=== PATIENT | male | born 1940 | race Caucasian/White ===

== ENCOUNTER 2017-05-27 10:15 | Outpatient (RCR) | payer MEDICARE, SELFPAY ==
[2017-04-29 10:05] LABS: International Normalized Ratio 2.5; Prothrombin Time (Protime)PT. 25.7 SECONDS (11.7-14.9)
[2017-05-06 11:08] LABS: International Normalized Ratio 2.7; Prothrombin Time (Protime)PT. 27.9 SECONDS (11.7-14.9)
[2017-05-20 11:39] LABS: International Normalized Ratio 3.2; Prothrombin Time (Protime)PT. 31.8 SECONDS (11.7-14.9)
[2017-05-27 10:45] LABS: International Normalized Ratio 3.2; Prothrombin Time (Protime)PT. 31.8 SECONDS (11.7-14.9)
== END 2017-05-27 10:30 | disposition home or self-care (01) ==
LOC: LAB 10:15
DX: D68.59 Other primary thrombophilia (principal)
CPT/HCPCS: 36415; 85610

== ENCOUNTER 2017-07-15 08:41 | Outpatient (RCR) | payer MEDICARE, SELFPAY ==
[2017-06-03 10:18] LABS: Prothrombin Time (Protime)PT. 32.6 SECONDS (11.7-14.9)
[2017-06-03 10:27] LABS: International Normalized Ratio 3.3
[2017-06-10 09:59] LABS: International Normalized Ratio 2.2; Prothrombin Time (Protime)PT. 23.8 SECONDS (11.7-14.9)
[2017-06-17 11:26] LABS: International Normalized Ratio 2.6; Prothrombin Time (Protime)PT. 26.9 SECONDS (11.7-14.9)
[2017-06-24 09:21] LABS: International Normalized Ratio 2.8; Prothrombin Time (Protime)PT. 28.7 SECONDS (11.7-14.9)
[2017-07-08 09:29] LABS: Prothrombin Time (Protime)PT. 31.4 SECONDS (11.7-14.9)
[2017-07-15 09:06] LABS: International Normalized Ratio 2.2; Prothrombin Time (Protime)PT. 24.8 SECONDS (11.7-14.9)
== END 2017-07-15 09:00 | disposition home or self-care (01) ==
LOC: LAB 08:41
DX: D68.59 Other primary thrombophilia (principal)
CPT/HCPCS: 36415; 85610

== ENCOUNTER 2017-08-19 08:28 | Outpatient (RCR) | payer MEDICARE, SELFPAY ==
[2017-08-19 08:58] LABS: Prothrombin Time (Protime)PT. 39.4 SECONDS (11.7-14.9)
== END 2017-08-19 09:00 | disposition home or self-care (01) ==
LOC: LAB 08:28
PROVIDERS: Family Provider Internal Medicine; PCP Internal Medicine; Visit Provider Internal Medicine
DX: D68.59 Other primary thrombophilia (principal)
CPT/HCPCS: 36415; 85610

== ENCOUNTER 2017-09-03 10:09 | Outpatient (RCR) | payer MEDICARE, SELFPAY ==
[2017-08-26 08:19] LABS: Prothrombin Time (Protime)PT. 31.6 SECONDS (11.7-14.9)
[2017-09-03 10:44] LABS: Prothrombin Time (Protime)PT. 31.6 SECONDS (11.7-14.9)
== END 2017-09-03 11:00 | disposition home or self-care (01) ==
LOC: LAB 10:09
PROVIDERS: Family Provider Internal Medicine; PCP Internal Medicine; Visit Provider Internal Medicine
DX: D68.59 Other primary thrombophilia (principal)
CPT/HCPCS: 36415; 85610

== ENCOUNTER → 2017-09-16 08:23 | Outpatient (CLI) | payer MEDICARE, SELFPAY ==
[2017-09-16 08:54] LABS: International Normalized Ratio 2.8
[2017-09-16 09:00] LABS: Prothrombin Time (Protime)PT. 29.5 SECONDS (11.7-14.9)
== END ==
DX: D68.59 Other primary thrombophilia (principal); Z79.01 Long term (current) use of anticoagulants
CPT/HCPCS: 36415; 85610

== ENCOUNTER 2017-10-07 08:34 | Outpatient (RCR) | payer MEDICARE, SELFPAY ==
[2017-10-07 08:54] LABS: International Normalized Ratio 2.9; Prothrombin Time (Protime)PT. 30.8 SECONDS (11.7-14.9)
== END 2017-10-07 09:00 | disposition home or self-care (01) ==
LOC: LAB 08:34
PROVIDERS: Visit Provider Internal Medicine
DX: D68.59 Other primary thrombophilia (principal)
CPT/HCPCS: 36415; 85610

== ENCOUNTER 2017-11-03 10:06 | Outpatient (RCR) | payer MEDICARE, SELFPAY ==
[2017-11-03 10:45] LABS: International Normalized Ratio 2.6; Prothrombin Time (Protime)PT. 27.8 SECONDS (11.7-14.9)
== END 2017-11-03 11:00 | disposition home or self-care (01) ==
LOC: LAB 10:06
PROVIDERS: Family Provider Internal Medicine; PCP Internal Medicine; Visit Provider Internal Medicine
DX: D68.59 Other primary thrombophilia (principal)
CPT/HCPCS: 36415; 85610

== ENCOUNTER 2017-12-08 08:21 | Outpatient (RCR) | payer MEDICARE, SELFPAY ==
[2017-12-08 09:06] LABS: International Normalized Ratio 2.5; Prothrombin Time (Protime)PT. 26.9 SECONDS (11.7-14.9)
== END 2017-12-08 10:00 | disposition home or self-care (01) ==
LOC: LAB 08:21
PROVIDERS: Family Provider Internal Medicine; PCP Internal Medicine; Visit Provider Internal Medicine
DX: D68.59 Other primary thrombophilia (principal)
CPT/HCPCS: 36415; 85610

== ENCOUNTER 2018-01-11 09:08 | Outpatient (RCR) | payer MEDICARE, SELFPAY ==
[2018-01-11 09:55] LABS: International Normalized Ratio 2.9; Prothrombin Time (Protime)PT. 30.4 SECONDS (11.7-14.9)
== END 2018-01-11 10:00 | disposition home or self-care (01) ==
LOC: LAB 09:08
PROVIDERS: Family Provider Internal Medicine; PCP Internal Medicine; Visit Provider Internal Medicine
DX: D68.59 Other primary thrombophilia (principal)
CPT/HCPCS: 36415; 85610

== ENCOUNTER 2018-02-22 08:43 | Outpatient (RCR) | payer MEDICARE, SELFPAY ==
[2018-02-02 09:21] LABS: International Normalized Ratio 3.2; Prothrombin Time (Protime)PT. 33.3 SECONDS (11.7-14.9)
[2018-02-11 09:16] LABS: Prothrombin Time (Protime)PT. 37.1 SECONDS (11.7-14.9)
[2018-02-11 09:28] LABS: International Normalized Ratio 3.7
[2018-02-12 09:41] LABS: Hematocrit 41.5 % (40-54); Hemoglobin 13.9 g/dl (13.0-16.5)
[2018-02-15 10:03] LABS: Prothrombin Time (Protime)PT. 22.4 SECONDS (11.7-14.9)
[2018-02-22 09:42] LABS: International Normalized Ratio 2.2; Prothrombin Time (Protime)PT. 24.2 SECONDS (11.7-14.9)
== END 2018-02-22 10:00 | disposition home or self-care (01) ==
LOC: LAB 08:43
PROVIDERS: Family Provider Internal Medicine; PCP Internal Medicine; Referring Provider Internal Medicine; Visit Provider Internal Medicine
DX: D68.59 Other primary thrombophilia (principal)
CPT/HCPCS: 36415; 85014; 85018; 85610

== ENCOUNTER 2018-03-15 11:06 | Outpatient (RCR) | payer MEDICARE, SELFPAY ==
[2018-03-01 08:17] LABS: International Normalized Ratio 2.1; Prothrombin Time (Protime)PT. 23.5 SECONDS (11.7-14.9)
[2018-03-15 11:38] LABS: International Normalized Ratio 1.9
== END 2018-03-26 09:06 | disposition home or self-care (01) ==
LOC: LAB 11:06
PROVIDERS: Family Provider Internal Medicine; PCP Internal Medicine; Referring Provider Internal Medicine; Visit Provider Internal Medicine
DX: D68.59 Other primary thrombophilia (principal)
CPT/HCPCS: 36415; 85610

== ENCOUNTER 2018-04-18 08:57 | Emergency (ER) | payer MEDICARE, SELFPAY ==
[2018-04-18 09:00] VITALS: BP 114/75; PULSE 81; RESP 16; TEMP 36.4; O2SAT 94; BMI 31.6
--- NOTE | 2018-04-18 09:30 | ED.VISSUMM ---
- ER Visit Summary Date of Service: 04/18/18 Chief Complaint: [] Bleeding right ear canal after inadvertent trauma History of Present Illness: The patient is a 77 M [] currently on Lovenox, Coumadin therapy resuming, after being stopped for procedure, he indicated he basically put his finger in his ear the other day and he has some intermittent bleeding from the right ear canal since no ear trauma otherwise no difficulty hearing no bleeding from elsewhere no nausea or vomiting no other complaints Physical Examination: [] Vital signs are within normal range 114/75 General, no distress resting comfortably HEENT is generally unremarkable mother right ear canal is slightly excoriated with abrasions circumferentially over the first 1 cm or so of the canal the TMs unremarkable is no current bleeding no masses no infection the HEENT exam is otherwise unremarkable, The rest of the exam is generally unremarkable as well no other complaints The neck is supple no adenopathy Neurologic, awake alert answering questions appropriately moving all 4 extremities Test Results: [] Emergency Department Course and Treatment: [] We did take a long 4 x 4 soak it with antibiotic ointment and then gently applied to the ear canal first centimeter or 2 patient instructed move that tomorrow otherwise avoid trauma to the ear and follow-up with ENT he is comp with this plan Treatment Plan: [] Disposition: [] Home stable Impression: [] Abrasions from focal trauma right ear canal This note was generated with [employer] dictation software. It may contain incorrect words, spelling, and punctuation that were not noted in review of the chart prior to signing ED Disposition - Plan for ED Patient: Chief Complaint: Ear Problem Referrals: Radha Steele MD [Primary Care Provider] -
--- NOTE | 2018-04-18 09:32 | ED.DEP ---
ED Disposition - Plan for ED Patient: Chief Complaint: Ear Problem Instructions: ED Otitis Media Acute Adult Referrals: Radha Steele MD [Primary Care Provider] - Fermin Santana MD [STAFF PHYSICIAN] -
[2018-04-18 09:53] VITALS: BP 125/82; PULSE 62; RESP 16; O2SAT 100
== END 2018-04-18 09:59 | disposition home or self-care (01) ==
LOC: ED 09:32
PROVIDERS: Emergency Provider Emergency Medicine; Family Provider Internal Medicine; PCP Internal Medicine
DX: S00.411A Abrasion of right ear, initial encounter (principal); X58.XXXA Exposure to other specified factors, initial encounter; Y93.9 Activity, unspecified; Y92.89 Other specified places as the place of occurrence of the external cause; Y99.9 Unspecified external cause status
CPT/HCPCS: 99282

== ENCOUNTER 2018-04-21 09:16 | Outpatient (RCR) | payer MEDICARE, SELFPAY ==
[2018-03-29 09:41] LABS: International Normalized Ratio 2.3; Prothrombin Time (Protime)PT. 25.8 SECONDS (11.7-14.9)
[2018-04-14 10:40] LABS: International Normalized Ratio 1.7; Prothrombin Time (Protime)PT. 20.2 SECONDS (11.7-14.9)
[2018-04-21 09:39] LABS: International Normalized Ratio 1.7; Prothrombin Time (Protime)PT. 20.4 SECONDS (11.7-14.9)
--- OUTSIDE RECORDS SUMMARY | 2018-05-22 11:54 | XMS RPT_ITS ---
:1940 Author Organization OHIP Support Name Relationship Address Phone BRYSON AUGUSTINELYN Unavailable [address] + [place] [address] R Unavailable Unavailable Unavailable YENI AUGUSTINEQUELYN Unavailable [address] + [facility] [place] [address] PROSPER AUGUSTINE Unavailable Unavailable Unavailable BELEN GALE Unavailable Unavailable Unavailable FAWN, TWAN Unavailable [address] + [place] [address] R Unavailable Unavailable Unavailable BRYSON AUGUSTINELYN Unavailable [address] + [place] [address] R Unavailable Unavailable Unavailable FAWN, TWAN Unavailable [address] + [place] [address] R Unavailable Unavailable Unavailable FAWN, TWAN Unavailable [address] + [place] [address] R Unavailable Unavailable Unavailable FAWN, TWAN Unavailable [address] + [place] [address] R Unavailable Unavailable Unavailable YENI AUGUSTINEQUELYN Unavailable [address] + [place] [address] R Unavailable Unavailable Unavailable FAWN, TWAN Unavailable [address] + [place] [address] R Unavailable Unavailable Unavailable FAWN, TWAN Unavailable [address] + [place] [address] PROSPER AUGUSTINE Unavailable Unavailable Unavailable BELEN GALE Unavailable Unavailable Unavailable FAWN, TWAN Unavailable [address] + [place] [address] R Unavailable Unavailable Unavailable FAWN, TWAN Unavailable [address] + [place] [address] R Unavailable Unavailable Unavailable FAWN TWAN Unavailable [address] + [place] [address] R Unavailable Unavailable Unavailable FAWN, TWAN Unavailable [address] + [place] [address] R Unavailable Unavailable Unavailable FAWN TWAN Unavailable [address] + [place] [address] R Unavailable Unavailable Unavailable FAWN, TWAN Unavailable [address] + [place] [address] R Unavailable Unavailable Unavailable FAWN TWAN Unavailable [address] + [place] [address] R Unavailable Unavailable Unavailable FAWN, TWAN Unavailable [address] + [place] [address] R Unavailable Unavailable Unavailable FAWN TWAN Unavailable [address] + [place] [address] R Unavailable Unavailable Unavailable FAWN TWAN Unavailable [address] + [place] [address] R Unavailable Unavailable Unavailable FAWN, TWAN Unavailable [address] + [place] [address] FAWN, PROSPER Unavailable Unavailable Unavailable BALJINDER BELEN Unavailable Unavailable Unavailable FAWN, TWAN Unavailable [address] + [place] [address] FAWN, PROSPER Unavailable Unavailable Unavailable BALJINDER, BELEN Unavailable Unavailable Unavailable FAWN, TWAN Unavailable [address] + [place] [address] FAWN, PROSPER Unavailable Unavailable Unavailable BALJINDER, BELEN Unavailable Unavailable Unavailable FAWN, TWAN Unavailable [address] + [place] [address] R Unavailable Unavailable Unavailable FAWN, TWAN Unavailable [address] + [place] [address] R Unavailable Unavailable Unavailable FAWN, TWAN Unavailable [address] + [place] [address] R Unavailable Unavailable Unavailable FAWN, TWAN Unavailable [address] + [place] [address] R Unavailable Unavailable Unavailable FAWN, TWAN Unavailable NA + [place], [place] R Unavailable Unavailable Unavailable FAWN, TWAN Unavailable [address] + [place] [address] FAWNPROSPER FIGUEROA Unavailable Unavailable Unavailable BALJINDERBELEN Unavailable Unavailable Unavailable FAWN, TWAN Unavailable NA + [place], [place] R Unavailable Unavailable Unavailable FAWN, TWAN Unavailable NA + [place], [place] R Unavailable Unavailable Unavailable FAWN TWAN Unavailable [address] [phone] [place] [address] R Unavailable Unavailable Unavailable Care Team Providers Name Role Phone JACKELINE BRISCOE Attending Unavailable GRANDOMINICO, RADHA M Referring Unavailable GRANDOMINICO, RADHA M Primary Care Unavailable GRANDOMINICO, RADHA M Attending Unavailable GRANDOMINICO, RADHA M Referring Unavailable GRANDOMINICO, RADHA M Primary Care Unavailable GRANDOMINICO, RADHA M Attending Unavailable GRANDOMINICO, RADHA M Referring Unavailable GRANDOMINICO, RADHA M Primary Care Unavailable GRANDOMINICO, RADHA M Attending Unavailable GRANDOMINICO, RADHA M Referring Unavailable GRANDOMINICO, RADHA M Primary Care Unavailable GRANDOMINICO, RADHA M Attending Unavailable GRANDOMINICO, RADHA M Referring Unavailable GRANDOMINICO, RADHA M Primary Care Unavailable GRANDOMINICO, RADHA M Primary Care Unavailable GRANDOMINICO, RADHA M Referring Unavailable EKTA HOBBS Admitting Unavailable EKTA HOBBS Attending Unavailable KELSI RETANA Referring Unavailable KELSI RETANA Primary Care Unavailable KELSI RETANA Attending Unavailable KELSI RETANA Attending Unavailable KELSI RETANA Primary Care Unavailable Jaden Torres Attending Unavailable DOCTOR, OUT OF TOWN Referring Unavailable KELSI RETANA Primary Care Unavailable Low Henry Attending Unavailable DOCTOR, OUT OF TOWN Referring Unavailable KELSI RETANA Attending Unavailable KELSI RETANA Primary Care Unavailable La Corrigan Attending Unavailable DOCTOR, OUT OF TOWN Referring Unavailable KELSI RETANA Primary Care Unavailable Taryn Culp Attending Unavailable Low Henry Attending Unavailable DOCTOR, OUT OF TOWN Referring Unavailable KELSI RETANA Primary Care Unavailable Grandominco Rincon, Radha Attending Unavailable Grandominco Rincon, Radha Referring Unavailable Grandominco Rincon, Radha Primary Care Unavailable Amalia Palencia Attending Unavailable Marco Marion Attending Unavailable Jaden Torres Attending Unavailable DOCTOR, OUT OF TOWN Referring Unavailable Grandominco Rincon, Radha Attending Unavailable Grandominco Rincon, Radha Referring Unavailable Grandominco Rincon, Radha Primary Care Unavailable KELSI RETANA Attending Unavailable KELSI RETANA Referring Unavailable KELSI RETANA Primary Care Unavailable Grandominco Rincon, Radha Attending Unavailable Grandominco Rincon, Radha Referring Unavailable KELSI RETANA Primary Care Unavailable La Corrigan Attending Unavailable KELSI RETANA Primary Care Unavailable Grandominico, Radha Referring Unavailable Grandominco Rincon, Radha Attending Unavailable Grandominco Rincon, Radha Referring Unavailable Grandominco Rincon, Radha Primary Care Unavailable Low Henry Attending Unavailable DOCTOR, OUT OF TOWN Referring Unavailable Grandominco Rincon, Radha Attending Unavailable Grandominco Rincon, Radha Referring Unavailable Grandominco Rincon, Radha Primary Care Unavailable Grandominco Rincon, Radha Attending Unavailable Grandominco Rincon, Radha Referring Unavailable Grandominco Rincon, Radha Primary Care Unavailable La Corrigan Attending Unavailable DOCTOR, OUT OF TOWN Referring Unavailable Grandominco Rincon, Radha Primary Care Unavailable Grandominco Rincon, Radha Attending Unavailable Grandominco Rincon, Radha Referring Unavailable Grandominco Rincon, Radha Primary Care Unavailable Grandominco Rincon, Radha Attending Unavailable Grandominco Rincon, Radha Primary Care Unavailable Grandominco Rincon, Radha Attending Unavailable Grandominco Rincon, Radha Referring Unavailable Grandominco Rincon, Radha Primary Care Unavailable Saqib Soto Attending Unavailable Grandominico, Radha Referring Unavailable Grandominco Rincon, Radha Attending Unavailable Grandominco Rincon, Radha Referring Unavailable Grandominco Rincon, Radha Primary Care Unavailable PROBLEMS PROBLEMS DATE TYPE CONDITION / CODE ATTENDING STATUS SOURCE 04/14/2018 Unknown D68.59 - Other [place] Active [place] primary Rincon [facility] thrombophilia / Hospital D68.59(ICD-10) Repository 03/10/2018 Admitting Encounter for EKTA HOBBS Active [place] [facility] diagnosis screening for [facility] malignant neoplasm [facility] colon / Center Z12.11(ICD-10) Repository 11/24/2017 Admitting Condition Update / GRANDOMINICO, Active [place] [facility] diagnosis 178() [facility] Repository 11/10/2017 Unknown Z95.0 - Presence of [place], [place] Active [place] cardiac pacemaker / Community Z95.0(ICD-10) Hospital Repository 11/10/2017 Unknown I10 - Essential [place], [place] Active [place] (primary) Community hypertension / Hospital I10(ICD-10) Repository 11/10/2017 Unknown Z86.718 - Personal [place], [place] Active [place] history of other Community venous thrombosis Hospital and embolism / Repository Z86.718(ICD-10) 07/22/2017 Admitting Essential (primary) GRANDOMINICO, Active [place] [facility] diagnosis hypertension / [facility] [place] I10(ICD-10) [facility] Repository 07/16/2016 Admitting Mixed [facility] [place] [facility] diagnosis hyperlipidemia / [facility] [place] E78.2(ICD-10) [facility] Repository 01/29/2016 Admitting Prediabetes / [facility] [place] [facility] diagnosis R73.03(ICD-10) [facility] Repository 01/03/2015 Admitting Primary generalized GRANDOMINICO, Active [place] [facility] diagnosis (osteo)arthritis / [facility] [place] M15.0(ICD-10) [facility] Repository 04/17/2014 Admitting Generalized anxiety [facility] diagnosis disorder / [facility] [place] F41.1(ICD-10) [facility] Repository 06/27/2013 Admitting Encounter for GRANDOMINICO, Active [place] [facility] diagnosis general adult [facility] [place] medical examination [facility] without abnormal Center findings / Repository Z00.00(ICD-10) 06/24/2017 Unknown R42 - Dizziness and [place], [place] Active [facility] giddiness / Community R42(ICD-10) Hospital Repository 06/01/2017 Admitting Follow-up / 145() ANTONIA BRISCOE Active [place] [facility] diagnosis [facility] Repository PROCEDURES PROCEDURES No Procedure Records FoundRESULTS RESULTS SURGICAL PATHOLOGY Observed: 04/07/2018 Status: F Source: [facility] 2:[address] [facility] REPOSITORY Surgical Pathology Report Patient Name: PROSPER AUGUSTINE [facility]. Rec #: [id number] Submitting Physician: EKTA HOBBS --- Clinical History --- Patient History: Colonoscopy diagnostic. Colon cancer screening. [Z12.11] HTN. Hypercoagulable state. Abnormal PSA. Nephrolithiasis. Family history of cancer of the gastrointestinal tract. Diverticulitis. Rheumatic fever. Pulmonary embolus. Rheumatic fever. Pulmonary embolus. Kidney stone. Insomnia. Pacemaker. GERD (gastroesophageal reflux disease). PEYMAN (obstructive sleep apnea). Lipid disorder. Heart block AV. BPH (benign prostatic hypertrophy). Benign neoplasm of colon. Family history of diabetes mellitus. Generalized osteoarthritis of multiple sites. Hydrocele. Deep vein thrombophlebitis of leg. Cardiac pacemaker. Angina. Hyperlipidemia. Migraine. ---Final Pathologic Diagnosis--- A. Colon, transverse, polyp x3, polypectomy: - Tubular adenoma (multiple fragments). B. Colon, ascending, polyp, polypectomy: - Tubular adenoma. C. Colon, hepatic flexure, polyp x2, polypectomy: - Tubular adenoma. - Serrated polyp with features of sessile serrated adenoma. para18/MLS:04/08/2018 Electronically Signed By Ethel Piper MD 04/08/2018 16:21:49 Professional Interpretation performed at location: [address] [place] [address] ---SPECIMEN(S) RECEIVED:--- EC A: Colon, BX B: Colon, BX C: Colon, BX ---GROSS DESCRIPTION:--- The specimens are received in three properly labeled containers with the patient's name and accession number. A. The specimen is designated transverse - polyp x3 and consists of eight soft schultz portions of tissue that range from 0.3 cm up to 0.8 cm in greatest dimension. TE 2 B. The specimen is designated ascending - polyp and consists of two soft schultz portions of tissue that are 0.3 and 0.5 cm in greatest dimension. TE 1 C. The specimen is designated hepatic flexure - polyp x2 and consists of two soft schultz portions of tissue that are 0.4 and 0.7 cm in greatest dimension. TE 1 Lab Use Only: JobID [id number] Gross description by: Valorie Jamil Performed By: #### SURGP #### [facility] [address] [place] [address] [facility] [address] [place], [place] [address] PROTHROMBIN TIME W/INR Collected: 03/29/2018 Status: F Source: [place] 9:13 AM [facility] REPOSITORY Order Comment: CALL RESULTS [id number] RESULTS CALLED TO JOSEPH 03/29/18 Rg Li. REPORT READ BACK BY SAME. TYPE CODE TESTS RESULT OUT OF RANGE REFERENCE UNITS LAB L300.4150 11.7-14.9 SECONDS High PROTIME 25.8 LAB L300.4200 Normal INR 2.3 Performed By: #### L300.3900 #### [facility] [address] [place], [place], [address] PROTHROMBIN TIME W/INR Collected: 03/15/2018 Status: F Source: [place] 11:10 AM [facility] REPOSITORY Order Comment: CALL RESULTS [phone] FAX RESULTS [phone] TYPE CODE TESTS RESULT OUT OF RANGE REFERENCE UNITS LAB L300.4150 11.7-14.9 SECONDS High PROTIME 22.0 LAB L300.4200 Normal INR 1.9 Result Comment: RESULTS CALLED TO JOANN GUTIERREZ 03/15/18 1138 Derrick Millard. REPORT READ BACK BY SAME. Performed By: #### L300.3900 #### [facility] [address] [place], [place], [address] PULMONARY VISIT REPORT Observed: 03/04/2018 Status: F Source: [place] 12:18 PM [facility] REPOSITORY Pulmonary Medicine of [address] [place], [place] [address] OFFICE VISIT Date of Service: 03/04/18 MR#: [id number] Acct: [id number] Name: PROSPER AUGUSTINE Rep #: [id number] : 1940 Provider: Saqib Soto MD Age/Sex: 77/M Location: [facility] Status: Signed Assessment AND Plan Problems 1. PEYMAN (obstructive sleep apnea) G47.33 2. Other acute pulmonary embolism without acute cor pulmonale I26.99 Plan Patient has had some weight gain since his last visit. However, compliance report shows an AHI of over 2, which is acceptable. Did stress to the patient that weight loss would be desirable, but weight maintenance will be vital. Patient understands that a repeat polysomnogram may be indicated. Did stress to the patient that should be using his BiPAP with naps, but logistic issues will likely limit compliance. Patient is on systemic anticoagulation for multiple issues. Patient being followed by cardiology. No indication for pulmonary function test or walking oximetry at this time. Encourage weight loss. Continue BiPAP at current settings. Plan Detail Follow Up 1 Year ([facility]) HPI 1 Y FU: Chief Complaint: Follow-up sleep apnea Details: Patient is a 77-year-old male, currently under the care of Dr. Steele, who presents for evaluation secondary to a history of sleep apnea. Since last visit, patient denies any ER visits, hospitalizations or prednisone burst. Patient is not on any inhalers at this time. Patient continues to follow-up with Dr. Henry. Patient states that he had a pacer battery change approximately 1 year ago. Patient is still on Coumadin therapy and has been keeping his INR is in the mid twos. Patient has noted some dyspnea on exertion, typically with steps. Patient overall feels that this has not significantly changed. Patient does report some orthostatic type symptoms with change in position, but has not reported any syncope or chest pain associated with these events. Patient reports he has been compliant with his BiPAP therapy. Patient states that his nasal interface tends to last approximately 1 month before its leaking is noticed. Patient changes his mask and does well. Patient denies any pain at the interface site, epistaxis or sore throat. Patient continues to have difficulty with insomnia. Patient has attempted to decrease his Ambien to 5 mg per night. Patient states he tends to sleep approximately 4-5 hours overnight. Patient does have naps during the day and he does not wear his BiPAP during these naps. Patient states that he is typically in his basement when he takes his nap and his CPAP is upstairs. Documentation reviewed with the patient Compliance report (January 2018): Compliant 100% of days for an average of 6 hours 43 minutes on BiPAP 15/9 centimeters of water with residual AHI of 2.7 and well-controlled feet. 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: No Accompanied by: Self Is patient in pain?: Yes Allergies amlodipine [From [facility]] Allergy (Verified 03/04/18 07:13) Unknown trazodone Allergy (Verified 03/04/18 07:13) Unknown Medications Finasteride [Proscar] 5 mg PO DAILY 01/14/17 [History Confirmed 03/04/18] Hydrocodone/Acetaminophen [[place] 5-325 Tablet] 1 ea PO Q6H PRN PRN 01/14/17 [History Confirmed 03/04/18] Multivitamins,Therapeutic [Multivitamin] 1 tab PO DAILY 01/14/17 [History Confirmed 03/04/18] Warfarin Sodium [Coumadin] 10 mg PO DAILY 01/14/17 [History Confirmed 03/04/18] tamsulosin 0.4 mg capsule 0.4 mg PO DAILY cap 05/14/17 [History Confirmed 03/04/18] warfarin 6 mg tablet 6 mg PO QDAY tab 05/14/17 [History Confirmed 03/04/18] atorvastatin 80 mg tablet 40 mg PO QHS tab 08/05/17 [History Confirmed 03/04/18] losartan 100 mg-hydrochlorothiazide 25 mg tablet 1 tab PO QDAY 08/05/17 [History Confirmed 03/04/18] zolpidem 10 mg tablet 10 mg PO HS PRN tab 08/05/17 [History Confirmed 03/04/18] omeprazole 40 mg capsule,delayed release 40 mg PO DAILY 11/10/17 [History Confirmed 03/04/18] PFSH Medical History H/O deep venous thrombosis (Chronic) Hypercoagulable state (Chronic) Hx of rheumatic fever (Chronic) Breakdown (mechanical) of cardiac electrode, subsequent encounter (Chronic) Sick sinus syndrome (Acute) Pulmonary embolism (Chronic) Hyperlipidemia (Chronic) Hypertension (Chronic) Valvular heart disease (Chronic) PEYMAN (obstructive sleep apnea) (Chronic) Nonrheumatic tricuspid (valve) insufficiency (Chronic) Nonrheumatic mitral (valve) insufficiency (Chronic) Nonrheumatic aortic (valve) insufficiency (Chronic) Complete heart block (Chronic) DVT (deep venous thrombosis) (Chronic) Diverticulitis (Chronic) Pulmonary embolism (Chronic) Surgical History Presence of permanent cardiac pacemaker (Chronic 07/15/04) H/O shoulder replacement (Chronic) History of bilateral hip replacements (Chronic) History of colonoscopy (Resolved) History of detached retina repair (Resolved) History of hydrocelectomy (Resolved) History of left inguinal hernia repair (Resolved) History of prostate biopsy (Resolved) Hx of total knee replacement (Resolved 05/15/12) cystourethroscopy (Resolved 2003) Family History Father Alcoholism Grandmother Enlarged heart Social History Smoking Status: Never smoker alcohol intake: never substance use type: does not use caffeine: Yes Type: coffee Number of servings: 3, tea what type of physical activity do you participate in: other details: [employer] frequency: 3-4 times per week duration: 30-45 minutes/day seatbelt use: always do you feel safe at home: Yes Review of Systems Const CONSTITUTIONAL: Negative anorexia, body ache, chills, daytime sleepiness, fever(s), night sweats, oral thrush, stops breathing during sleep, weight loss, sleeping in chair, fatigue, weight loss, weight gain, frequent colds, seasonal allergies, other, headache(s) or orthopnea EETM Ear Nose Throat Mouth: Positive hearing normal; negative hoarseness, dry mouth in morning, change in vision, itchy eyes, eye pain, swallowing Difficulty, ear pain, headache(s), mouth pain, nasal congestion, nasal discharge, sinus pain, sinus pressure, sore throat, other, hard of hearing, nose bleed or post nasal drip Cardio Cardiovascular: Positive edema Location: lower extremity; negative chest pain, chest pain at rest, chest pain with activity, irregular heart rhythm, shortness of breath when lying down, palpitations, other or murmur Resp Respiratory: Positive as per HPI and shortness of breath shortness of breath: Positive with activity; negative pain with cough, wheezing, chest congestion, cough, chest tightness, pain on inspiration, inhalers, increase use of rescue inhalers, snoring, apnea or other Gastro Gastrointestional: Negative bloody stools, change in appetite, difficulty swallowing, reflux, hematemesis, melena stool, loose stool, constipation or other Genitourinary: Positive nocturia; negative blood in urine, pain with urination or other Musc Musculoskeletal: Positive body pain; negative back pain, neck pain or other Skin/Breast Skin/Breast: Negative dry skin, itching, unusual bruising, breast lump, other or rash Neuro Neurological: Negative restless legs, confusion, weakness or other Psych Psychocological: Negative abnormal sleep pattern, anxiety, thoughts of hurting self/others, hopelessness or other Lymph Lymphatic: Negative easy bleeding, easy bruising, other or swollen lymph nodes Exam Const Constitutional: Positive conversant, cooperative, in no acute respiratory distress, healthy appearing, well developed, well nourished, good hygiene and obese; negative appears older than stated age, frail appearing or dyspenic Head Head: Positive normocephalic and atraumatic; negative cyanosis of lips/distal nose, frontal sinus tenderness or maxillary sinus tenderness Eyes Eye: Positive clear conjunctiva; negative nystagmus, scleral abnormality or cataract present Ears Ear: Positive hearing normal and external ears normal; negative hard of hearing Nose Nose: Positive external nose normal, septum normal and no nasal discharge; negative epistaxis or nasal polyp Mouth Mouth: Positive oral mucosae normal, no lesions, dentures and crowded posterior oropharynx; negative post nasal drip, malodorous breath or oral thrush present Mallampati Score: III: Mallampati Score Neck Neck: Positive normal visual inspection, full ROM, trachea midline and male neck greater than 43 cm (17 in); negative lymphadenopathy or JVD Chest Wall Chest: Positive normal inspection of the chest and symmetric chest movement; negative crepitus or tenderness Resp lung sounds: Positive clear to auscultation, good air exchange, normal expiratory time and normal respiratory effort; negative wheezes, rhonchi, rales, use of accessory muscles, wheeze present on forced exhalation or dullness to percussion Cardio Cardiac: Positive regular rate, regular rhythm, S1 normal and S2 normal; negative murmur, rub or gallop GI GI: Positive normal to inspection, normal bowel sounds and obese; negative distended, ascites or epigastric tenderness Genitourinary: Positive deferred Musc Musculoskeletal: Positive steady gait; negative using an assistive device for ambulation, kyphosis or scoliosis Skin Pulmonary Skin Exam: Positive intact; negative rash, lesion, ulcers, erythema or dermal atrophy Pulses Pulse: Yes radial pulses present Extremities Extremities: Yes capillary refill normal, No clubbing, No cyanosis, Yes edema (1+) Location: lower extremity Neuro Neurologic: Yes conversant, Yes no focal neuro deficits, Yes cooperative, Yes normal cognition, Yes normal coordination, Yes normal concentration, Yes understands questions Lymph Lymphatic: No lymphadenopathy Psych Appearance: Positive grossly normal Mental Status: Positive mental status grossly normal Mood: Positive congruent mood Affect: Positive normal affect Coding Level of Care Code Off vis,est,level 3 Diagnoses PEYMAN (obstructive sleep apnea) G47.33 Other acute pulmonary embolism without acute cor pulmonale I26.99 Acute cor pulmonale presence: without acute cor pulmonale Chronicity: acute Pulmonary embolism type: other 03/04/18 1218 <Electronically signed by Saqib Soto MD> Date Saqib Soto MD Cosigner Signature: Date (if applicable) CC: Radha Steele MD PROTHROMBIN TIME W/INR Collected: 03/01/2018 Status: F Source: [place] 8:02 AM [facility] RE[facility] Order Comment: CALL REUSLTS [phone] FAX RESULTS [phone] RESULTS CALLED TO HOLLEY AT [facility] AT [facility] 03/01/18 0824 Valorie Baeza. REPORT READ BACK BY SAME. RESULTS FAXED TO [phone] 03/01/18 0833 Valorie Baeza. TYPE CODE TESTS RESULT OUT OF RANGE REFERENCE UNITS LAB L300.4150 11.7-14.9 SECONDS High PROTIME 23.5 LAB L300.4200 Normal INR 2.1 Performed By: #### L300.3900 #### [facility] [address] [place], [address] PROTHROMBIN TIME W/INR Collected: 02/22/2018 Status: F Source: [place] 9:03 AM [facility] RE[facility] Order Comment: PLEASE CALL RESULTS TO [phone] AND [phone] AND FAX TO [phone] AND [phone] CRITICAL VALUE VERIFIED. CALLED TO HOLLEY AT [facility] GENER[facility] INTERNAL MEDICINE 02/22/18 0955 Valorie Baeza. RESULTS READ BACK BY SAME . TYPE CODE TESTS RESULT OUT OF RANGE REFERENCE UNITS LAB L300.4150 11.7-14.9 SECONDS High PROTIME 24.2 LAB L300.4200 Normal INR 2.2 Performed By: #### L300.3900 #### [facility] [address] [place], [address] PROTHROMBIN TIME W/INR Collected: 02/15/2018 Status: F Source: [place] 9:35 AM [facility] Order Comment: FAX TO BOTH NUMBERS [phone] TYPE CODE TESTS RESULT OUT OF RANGE REFERENCE UNITS LAB L300.4150 11.7-14.9 SECONDS High PROTIME 22.4 LAB L300.4200 Normal INR 2.0 Performed By: #### L300.3900 #### [facility] [address] [place], [address] HH, HEMOGLOBIN AND Collected: 02/12/2018 Status: F Source: [place] HEMATOCRIT 8:55 AM [facility] Order Comment: CALL AND FAX RESULTS [phone] TYPE CODE TESTS RESULT OUT OF RANGE REFERENCE UNITS LAB L100.1300 13.0-16.5 g/dl Normal HGB 13.9 LAB L100.1400 40-54 % Normal HCT 41.5 Performed By: #### L100.0600 #### [facility] [address] [place], [place], [address] PROTHROMBIN TIME W/INR Collected: 02/11/2018 Status: F Source: [place] 8:38 AM [facility] Order Comment: CALL [phone] FAX [phone] TYPE CODE TESTS RESULT OUT OF REFERENCE UNITS RANGE LAB L300.4150 11.7-14.9 SECONDS High PROTIME 37.1 LAB L300.4200 High alert INR 3.7 Result Comment: CRITICAL VALUE VERIFIED. CALLED TO [facility] 02/11/18 09 CCrytzer. RESULTS READ BACK BY DEANNA . Performed By: #### L300.3900 #### [facility] [address] [place], [place], [address] PROTHROMBIN TIME W/INR Collected: 02/02/2018 Status: F Source: [place] 9:01 AM [facility] Order Comment: CALL RESULTS [phone] FAX RESULTS [phone] TYPE CODE TESTS RESULT OUT OF RANGE REFERENCE UNITS LAB L300.4150 11.7-14.9 SECONDS High PROTIME 33.3 LAB L300.4200 Normal INR 3.2 Performed By: #### L300.3900 #### [facility] [address] [place], [address] PACEMAKER CHECK Observed: 01/14/2018 Status: F Source: [place] 5:09 PM [facility] [place] [address] Pacemaker Check Date of Service: 01/13/181523 MR#: [id number] Acct: [id number] Name: PROSPER AUGUSTINE Rep #: [id number] : 1940 From: [place] Age/Sex: 77/M Location: [facility] Status: Signed Billing Codes PM Device Codes: PM Dev Interrogate (Remot 01/13/18 1526 <Electronically signed by [place] > Date [place] 01/14/18 1709<Electronically signed by Low Henry MD> Estefany Signature: Date (if applicable) Low Henry MD CC: PROTHROMBIN TIME W/INR Collected: 01/11/2018 Status: F Source: [place] 9:17 AM [facility] Order Comment: PLEASE CALL RESULTS TO [phone], [phone], [phone] TYPE CODE TESTS RESULT OUT OF RANGE REFERENCE UNITS LAB L300.4150 11.7-14.9 SECONDS High PROTIME 30.4 LAB L300.4200 Normal INR 2.9 Performed By: #### L300.3900 #### [facility] [address] [place], [address] PROTHROMBIN TIME W/INR Collected: 12/08/2017 Status: F Source: [place] 8:34 AM [facility] Order Comment: CALL AND FAX RESULTS SEE PINK NOTE! RESULTS CALLED TO JENNY AT [facility]IC[facility] AT [facility] 12/08/17913 Valorie Baeza. REPORT READ BACK BY SAME. RESULTS FAXED TO [phone] 12/08/17913 Valorie Baeza. TYPE CODE TESTS RESULT OUT OF RANGE REFERENCE UNITS LAB L300.4150 11.7-14.9 SECONDS High PROTIME 26.9 LAB L300.4200 Normal INR 2.5 Performed By: #### L300.3900 #### [facility] [address] [place], [place], [address] CARDIOLOGY VISIT Observed: 11/10/2017 Status: F Source: [place] REPORT 11:24 AM [facility] [address] [place] [address] OFFICE VISIT Date of Service: 11/10/17 MR#: [id number] Acct: [id number] Name: PROSPER AUGUSTINE Cyndi Rep #: [id number] : 1940 Provider: Low Henry MD Age/Sex: 77/M Location: [facility] [place] Status: Signed HPI [facility] Chief Complaint: Follow-up visit Details: PROSPER AUGUSTINE, is a 77 M who presents to the office today for a cardiovascular outpatient follow-up. a cardiovascular outpatient follow-up. Patient is a history of complete heart block status post permanent pacemaker implantation, hypertension, and hyperlipidemia.Pt denies chest, arm, jaw, or neck discomfort. His exercise tolerance is stable via outdoor work. Pt denies symptoms of CHF, palpitations, lightheadedness, near syncopal or syncopal episodes. Pt denies edema or claudication issues. Pt. denies orthopnea, PND, fever, chills, myalgia, or unexplainable fatigue. He has been happy with his blood pressures and he is able to participate in most activities of daily living without any problems. His physical exam demonstrates normal blood pressure clear lung almonte regular rate and rhythm and no pedal edema. Intake Vital Signs11/10/17 Height 6 ft 1 in 11/10/17 Weight: 242 lb 11/10/17 Body Mass Index (BMI) 31.9 11/10/17 Blood Pressure 132/84 11/10/17 Blood Pressure Location Lt brachial Intake Visit Reasons: 6 M Machine Stacker Required: No Accompanied by: none Is patient in pain?: No Allergies amlodipine [From Norvas] Allergy (Verified 11/10/17 11:03) Unknown trazodone Allergy (Verified 11/10/17 11:03) Unknown Medications Finasteride [Proscar] 5 mg PO DAILY 01/14/17 [History Confirmed 11/10/17] Hydrocodone/Acetaminophen [Henderson 5-325 Tablet] 1 ea PO Q6H PRN PRN 01/14/17 [History Confirmed 11/10/17] Multivitamins,Therapeutic [Multivitamin] 1 tab PO DAILY 01/14/17 [History Confirmed 11/10/17] Warfarin Sodium [Coumadin] 10 mg PO DAILY 01/14/17 [History Confirmed 11/10/17] tamsulosin 0.4 mg capsule 0.4 mg PO DAILY cap 05/14/17 [History Confirmed 11/10/17] warfarin 6 mg tablet 6 mg PO QDAY tab 05/14/17 [History Confirmed 11/10/17] amoxicillin 500 mg tablet 2,000 mg PO QDAY PRN tab 08/05/17 [History Confirmed 11/10/17] atorvastatin 80 mg tablet 40 mg PO QHS tab 08/05/17 [History Confirmed 11/10/17] losartan 100 mg-hydrochlorothiazide 25 mg tablet 1 tab PO QDAY 08/05/17 [History Confirmed 11/10/17] melatonin 10 mg capsule 10 mg PO HS PRN 08/05/17 [History Confirmed 11/10/17] sertraline 100 mg tablet 100 mg PO QDAY PRN 08/05/17 [History Confirmed 11/10/17] zolpidem 10 mg tablet 10 mg PO HS PRN tab 08/05/17 [History Confirmed 11/10/17] omeprazole 40 mg capsule,delayed release 40 mg PO DAILY 11/10/17 [History Confirmed 11/10/17] Ejection fraction %: 50 to 54 PFSH Medical History H/O deep venous thrombosis (Chronic) Hypercoagulable state (Chronic) Hx of rheumatic fever (Chronic) Breakdown (mechanical) of cardiac electrode, subsequent encounter (Chronic) Pulmonary embolism (Chronic) Hyperlipidemia (Chronic) Hypertension (Chronic) PEYMAN (obstructive sleep apnea) (Chronic) Nonrheumatic tricuspid (valve) insufficiency (Chronic) Nonrheumatic mitral (valve) insufficiency (Chronic) Nonrheumatic aortic (valve) insufficiency (Chronic) Complete heart block (Chronic) DVT (deep venous thrombosis) (Chronic) Diverticulitis (Chronic) Pulmonary embolism (Chronic) Surgical History Presence of permanent cardiac pacemaker (Chronic 07/15/04) H/O shoulder replacement (Chronic) History of bilateral hip replacements (Chronic) History of colonoscopy (Resolved) History of detached retina repair (Resolved) History of hydrocelectomy (Resolved) History of left inguinal hernia repair (Resolved) History of prostate biopsy (Resolved) Hx of total knee replacement (Resolved 05/15/12) cystourethroscopy (Resolved 2003) Family History Father Alcoholism Grandmother Enlarged heart Social History Smoking Status: Never smoker alcohol intake: never substance use type: does not use caffeine: Yes Type: coffee Number of servings: 3, tea what type of physical activity do you participate in: other details: Remember The Member frequency: 3-4 times per week duration: 30-45 minutes/day seatbelt use: always do you feel safe at home: Yes ROS Const Const: Positive for headache(s); negative for fatigue, weakness, night sweats, excessive sweating, frequent falls or daytime sleepiness Eyes Eyes: Negative for loss of peripheral vision, transient loss of vision, blind spots, double vision or blurry vision ENT ENT: Positive for headache(s); negative for dizziness, balance problems, Nosebleed/epistaxis, tongue swelling or lip swelling Cardio Chest Pain: No Palpitations: No Edema: None Muscle aches with walking: None Resp Respiratory: Positive for SOB with activity; negative for SOB at rest, SOB orthopnea\SOB lying down, Cough or paroxysmal nocturnal dyspnea GI GI: Negative nausea, vomiting, heartburn, black,tarry stools or bright, red blood in stools : Negative for hematuria Musc Musc: Negative for balance problems, muscle aches/ myalgia, muscle weakness or joint pain Skin Skin: Negative non-healing lesions, unusual bruising or rash Neuro Neuro: Positive for headache(s); negative for weakness, frequent falls, double vision, dizziness, lightheadedness, orthostatic symptoms, blurry vision or lack of coordination Savage Hematologic/Lymphatic: Negative for easy bruising or easy bleeding Endo Endo: Negative for fatigue, excessive sweating, cold intolerance, heat intolerance, increased thirst/drinking or hair loss Psych Psych: Negative for anxiety or depression Allergy Allergy/Immunology: Negative for throat swelling, Negative for tongue swelling, Negative for hives, Negative for rash, Negative for lip swelling Cardiology Exam Const Appearance: cooperative, healthy appearing, well developed, well groomed and no acute distress Nutritional Appearance: well nourished and average body habitus Orientation: alert, awake and oriented x3 Head Head: normal to inspection, normocephalic and atraumatic Ears: hearing grossly normal bilaterally and external ears normal Nose: external nose normal, nasal mucous membranes and turbinates normal, nares normal, septum normal, no nasal discharge Face and Sinus: face symmetric Mouth: oral mucosae normal, tongue normal, oropharynx normal and moist mucous membranes Teeth and gingiva: dentition normal Throat: posterior oropharynx normal, tonsils normal and uvula midline Eyes General: appearance normal, both eyes and all related structures Eyelids: eyelids normal Conjunctivae: conjunctivae normal Pupils: PERRL, normal by confrontation and accommodation normal EOM: EOM intact bilaterally Neck Neck: normal visual inspection, trachea midline and no JVD JVD: +5 Carotids: normal carotid upstroke and bounding pulses Chest Chest inspection: normal inspection of the chest, symmetric chest movement and normal respiratory effort Auscultation: Bilateral: Clear to Auscultation Cardio Palpation: normal PMI Rate: regular rate Rhythm: regular rhythm Heart sounds: S1 normal, S2 normal and normal, physiologic split S2; negative rub, gallop or murmur GI GI: normal to inspection, soft, no hepatosplenomegaly and bowel sounds present Neuro General: alert, awake, oriented x3, no focal sensory deficit, gait normal and moves all extremities Skin Skin: no rashes or lesions noted Extremities Pulses: Normal: Right Femoral Pulse, Left Femoral Pulse, Right Dorsalis Pedis Pulse, Left Dorsalis Pedis Pulse, Right Posterior Tibial Pulse, Left Posterior Tibial Pulse, Right Radial Pulse, Left Radial Pulse Lower Extremity Edema: None: Bilateral Musculoskel Musculoskeletal: No joint tenderness Psych Psychological: normal affect Assessment AND Plan 1. Essential hypertension I10 Plan His blood pressure appears to be under excellent control at this particular time my recommendation is to continue on the same medications without making any changes. 2. Presence of permanent cardiac pacemaker Z95.0 initial implant 2004 Medtronic [id number] (VPP) [place] 700DR; RV lead extraction and implant 2011; Atrial lead revision and generator change 01/2017; Plan He does have a dual-chamber pacemaker placed and he has been doing well with AV sequential pacing. He also continues to have a remote pacemaker checks. They have been no VT episodes and battery longevity is good. He will continue with routine pacemaker checks. 3. H/O deep venous thrombosis Z86.718 Plan He remains on Coumadin for his history of deep vein thrombosis. He will continue the same without making any changes. His last echocardiogram had demonstrated ejection fraction of 50% with stage I diastolic dysfunction. Thank you for allowing me to participate in the care of your patient. 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) Coding Level of Care Code Off vis,est,level 3 Diagnoses Essential hypertension I10 Hypertension type: essential hypertension Presence of permanent cardiac pacemaker Z95.0 H/O deep venous thrombosis Z86.718 Coding Level of Care Code Off vis,est,level 3 Diagnoses Essential hypertension I10 Hypertension type: essential hypertension Presence of permanent cardiac pacemaker Z95.0 H/O deep venous thrombosis Z86.718 11/10/17 1124 <Electronically signed by Low Henry MD> Date Low Henry MD Cosigner Signature: Date (if applicable) CC: Radha Steele MD PROTHROMBIN TIME W/INR Collected: 11/03/2017 Status: F Source: [place] 10:15 AM [facility] RE[facility] Order Comment: CALL AND FAX RESULTS PLEASE RESULTS CALLED TO DARRYN AT [facility] GENER[facility] MEDICINE AT [facility] 11/03/17 1052 Valorie Baeza. REPORT READ BACK BY SAME. RESULTS FAXED TO [phone] 11/03/17 1053 Valorie Baeza. TYPE CODE TESTS RESULT OUT OF RANGE REFERENCE UNITS LAB L300.4150 11.7-14.9 SECONDS High PROTIME 27.8 LAB L300.4200 Normal INR 2.6 Performed By: #### L300.3900 #### [facility] [address] [place], [address] PROTHROMBIN TIME W/INR Collected: 10/07/2017 Status: F Source: [place] 8:36 AM [facility] Order Comment: CALL RESULTS [phone] RESULTS CALLED TO RUSH GUTIERREZ 10/07/17 0912 Derrick Millard. REPORT READ BACK BY SAME. TYPE CODE TESTS RESULT OUT OF RANGE REFERENCE UNITS LAB L300.4150 11.7-14.9 SECONDS High PROTIME 30.8 LAB L300.4200 Normal INR 2.9 Performed By: #### L300.3900 #### [facility] [address] [place], [address] PROTHROMBIN TIME W/INR Collected: 09/16/2017 Status: F Source: [place] 8:32 AM [facility] Order Comment: CALL RESULTS STAT TYPE CODE TESTS RESULT OUT OF REFERENCE UNITS RANGE LAB L300.4150 11.7-14.9 SECONDS High PROTIME 29.5 Result Comment: RESULTS CALLED TO KARIN WILHELM 09/16/17 0858 CCrytzer. REPORT READ BACK BY KARIN KHAN. LAB L300.4200 Normal INR 2.8 Performed By: #### L300.3900 #### [facility] [address] [place], [address] PROTHROMBIN TIME W/INR Collected: 2017 Status: F Source: [place] 10:10 AM [facility] Order Comment: CALL RESULTS STAT TYPE CODE TESTS RESULT OUT OF REFERENCE UNITS RANGE LAB L300.4150 11.7-14.9 SECONDS High PROTIME 31.6 Result Comment: RESULTS CALLED TO RICHARD GUTIERREZ 09/03/17 1044 Derrick Millard. REPORT READ BACK BY REBA. LAB L300.4200 Normal INR 3.0 Performed By: #### L300.3900 #### [facility] [address] [place], [address] PROTHROMBIN TIME W/INR Collected: 08/26/2017 Status: F Source: [place] 8:02 AM [facility] Order Comment: CALL RESULTS AND FAX RESULTS TYPE CODE TESTS RESULT OUT OF RANGE REFERENCE UNITS LAB L300.4150 11.7-14.9 SECONDS High PROTIME 31.6 LAB L300.4200 Normal INR 3.0 Performed By: #### L300.3900 #### [facility] [address] [place], [address] PROTHROMBIN TIME W/INR Collected: 08/19/2017 Status: F Source: [place] 8:32 AM [facility] Order Comment: CALL RESULTS STAT CRITICAL VALUE VERIFIED. CALLED TO JOVANY 08/19/17 0859 Bailey Umanzor. RESULTS READ BACK BY ELIJAH . TYPE CODE TESTS RESULT OUT OF REFERENCE UNITS RANGE LAB L300.4150 11.7-14.9 SECONDS High PROTIME 39.4 LAB L300.4200 High alert INR 4.0 Performed By: #### L300.3900 #### [facility] [address] [place], [address] CARDIOLOGY VISIT Observed: 08/06/2017 Status: F Source: [place] REPORT 9:43 AM [facility] [address] [place] [address] OFFICE VISIT Date of Service: 08/05/17 MR#: [id number] Acct: [id number] Name: PROSPER AUGUSTINE Rep #: [id number] : 1940 Provider: FRENCH Torres Age/Sex: 76/M Location: [facility] [place] [place] Status: Signed HPI HPI Details: PROSPER AUGUSTINE, is a 76 M who presents to the office today for a cardiovascular outpatient follow-up. a cardiovascular outpatient follow-up. Patient is a history of complete heart block status post permanent pacemaker implantation, hypertension, and hyperlipidemia. Pt denies chest, arm, jaw, or neck discomfort. His exercise tolerance is stable via outdoor work. Pt denies symptoms of CHF, palpitations, lightheadedness, near syncopal or syncopal episodes. Pt denies edema or claudication issues. Pt. denies orthopnea, PND, fever, chills, blood in urine, blood in stool, myalgia, or unexplainable fatigue. He states improved dizziness but it still may occur with quick position changes as if going from a sitting position and quickly going up stairs. This improves on its own. This does not occur at all times. There are no secondary symptoms with this. His average blood pressure reading at home has been systolic below 120. 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 Required: No Accompanied by: none Is patient in pain?: No Allergies amlodipine [From Norvasc] Allergy (Verified 08/05/17 10:32) Unknown trazodone Allergy (Verified 08/05/17 10:32) Unknown Medications Finasteride [Proscar] 5 mg PO DAILY 01/14/17 [History Confirmed 08/05/17] Hydrocodone/Acetaminophen [Henderson 5-325 Tablet] 1 ea PO Q6H PRN PRN 01/14/17 [History Confirmed 08/05/17] Multivitamins,Therapeutic [Multivitamin] 1 tab PO DAILY 01/14/17 [History Confirmed 08/05/17] Omeprazole [Prilosec] 40 mg PO DAILY 01/14/17 [History Confirmed 08/05/17] Warfarin Sodium [Coumadin] 10 mg PO DAILY 01/14/17 [History Confirmed 08/05/17] tamsulosin 0.4 mg capsule 0.4 mg PO DAILY cap 05/14/17 [History Confirmed 08/05/17] warfarin 6 mg tablet 6 mg PO QDAY tab 05/14/17 [History Confirmed 08/05/17] amoxicillin 500 mg tablet 2,000 mg PO QDAY PRN tab 08/05/17 [History Confirmed 08/05/17] atorvastatin 80 mg tablet 40 mg PO QHS tab 08/05/17 [History Confirmed 08/05/17] losartan 100 mg-hydrochlorothiazide 25 mg tablet 1 tab PO QDAY 08/05/17 [History Confirmed 08/05/17] melatonin 10 mg capsule 10 mg PO HS PRN 08/05/17 [History Confirmed 08/05/17] sertraline 100 mg tablet 100 mg PO QDAY PRN 08/05/17 [History Confirmed 08/05/17] zolpidem 10 mg tablet 10 mg PO HS PRN tab 08/05/17 [History Confirmed 08/05/17] Ejection fraction %: 50 to 54 PFSH Medical History H/O deep venous thrombosis (Chronic) Hypercoagulable state (Chronic) Hx of rheumatic fever (Chronic) Breakdown (mechanical) of cardiac electrode, subsequent encounter (Chronic) Pulmonary embolism (Chronic) Hyperlipidemia (Chronic) Hypertension (Chronic) PEYMAN (obstructive sleep apnea) (Chronic) Nonrheumatic tricuspid (valve) insufficiency (Chronic) Nonrheumatic mitral (valve) insufficiency (Chronic) Nonrheumatic aortic (valve) insufficiency (Chronic) Complete heart block (Chronic) DVT (deep venous thrombosis) (Chronic) Diverticulitis (Chronic) Pulmonary embolism (Chronic) Surgical History Presence of permanent cardiac pacemaker (Chronic 07/15/04) H/O shoulder replacement (Chronic) History of bilateral hip replacements (Chronic) History of colonoscopy (Resolved) History of detached retina repair (Resolved) History of hydrocelectomy (Resolved) History of left inguinal hernia repair (Resolved) History of prostate biopsy (Resolved) Hx of total knee replacement (Resolved 05/15/12) cystourethroscopy (Resolved 2003) Family History Father Alcoholism Grandmother Enlarged heart Social History Smoking Status: Never smoker alcohol intake: never substance use type: does not use caffeine: Yes Type: coffee Number of servings: 3, tea what type of physical activity do you participate in: other details: Remember The Member frequency: 3-4 times per week duration: 30-45 minutes/day seatbelt use: always do you feel safe at home: Yes ROS Const Const: Negative for fatigue, weakness, body ache, fever(s) or chills ENT ENT: Positive for dizziness (improved with quick position changes, few episodes) Cardio Chest Pain: No Palpitations: No Edema: None Muscle aches with walking: None Resp Respiratory: Negative for SOB with activity, SOB at rest, SOB orthopnea\SOB lying down or paroxysmal nocturnal dyspnea GI GI: Negative nausea, black,tarry stools, bright, red blood in stools or vomiting blood/hematemesis : Negative for hematuria or frequent nighttime urination/ nocturia Musc Musc: Negative for muscle aches/ myalgia Neuro Neuro: Positive for dizziness (improved with quick position changes, few episodes); negative for weakness, lightheadedness, near syncope, syncope or orthostatic symptoms Endo Endo: Negative for fatigue Cardiology Exam Const Appearance: cooperative, healthy appearing, well developed, well groomed and no acute distress Nutritional Appearance: well nourished and average body habitus Orientation: alert, awake and oriented x3 Head Head: normal to inspection, normocephalic and atraumatic Ears: hearing grossly normal bilaterally and external ears normal Nose: external nose normal, nasal mucous membranes and turbinates normal, nares normal, septum normal, no nasal discharge Face and Sinus: face symmetric Mouth: oral mucosae normal, tongue normal, oropharynx normal and moist mucous membranes Teeth and gingiva: dentition normal Throat: posterior oropharynx normal, tonsils normal and uvula midline Eyes General: appearance normal, both eyes and all related structures Eyelids: eyelids normal Conjunctivae: conjunctivae normal Pupils: PERRL, normal by confrontation and accommodation normal EOM: EOM intact bilaterally Neck Neck: normal visual inspection, trachea midline and no JVD JVD: +5 Carotids: normal carotid upstroke and bounding pulses Chest Chest inspection: normal inspection of the chest, symmetric chest movement and normal respiratory effort Auscultation: Bilateral: Clear to Auscultation Cardio Palpation: normal PMI Rate: regular rate Rhythm: regular rhythm Heart sounds: S1 normal, S2 normal and normal, physiologic split S2; negative rub, gallop or murmur GI GI: normal to inspection, soft, no hepatosplenomegaly and bowel sounds present Neuro General: alert, awake, oriented x3, no focal sensory deficit, gait normal and moves all extremities Skin Skin: no rashes or lesions noted Extremities Pulses: Normal: Right Femoral Pulse, Left Femoral Pulse, Right Dorsalis Pedis Pulse, Left Dorsalis Pedis Pulse, Right Posterior Tibial Pulse, Left Posterior Tibial Pulse, Right Radial Pulse, Left Radial Pulse Lower Extremity Edema: None: Bilateral Musculoskel Musculoskeletal: No joint tenderness Psych Psychological: normal affect Supplemental Info Pacemaker check from May 2017 showed no VT episodes since 03/24/17. Presenting rhythm shows AV sequential paced @ 83 ppm. 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 Battery longevity is approx 10.5 yrs. Echocardiogram from November 2016 showed estimated ejection fraction of 50%, and stage I diastolic dysfunction. Assessment AND Plan 1. Dizziness R42 Plan - LISA Pohenix With patient's most recent blood pressure medication adjustment his dizziness is much improved and occurs very infrequently. His blood pressure is stable at home and in office. We will continue to monitor this. Patient was reminded of concerning symptoms to monitor and when to contact our office. We will not make any medication regimen changes. 2. Presence of permanent cardiac pacemaker Z95.0 initial implant 2004 Medtronic [id number] (VPP) [place] 700DR; RV lead extraction and implant 2011; Atrial lead revision and generator change 01/2017; Plan - LISA Phoenix Patient's pacemaker check from May 2017 showed no VT episodes since 03/24/17. Presenting rhythm shows AV sequential paced @ 83 ppm. 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 Battery longevity is approx 10.5 yrs. Patient's pacemaker/ICD appears to be functioning appropriately. We will continue to monitor this with routine/scheduled follow-ups. 3. Essential hypertension I10 Plan - LISA Phoenix Patient's blood pressure is well-controlled today in the office. We will continue to monitor this. We will not make any medication regimen changes. Plan Detail Other Medications Discontinued: Additional Comments - LISA Phoenix Discussed the above patient with Dr. Henry, he agrees with the plan of care. Thank you for allowing us to participate in the patients plan of care, if you have any questions please do not hesitate to call. This note was generated using a voice recognition system and there may be incorrect words, spelling or punctuation that were not noted when reviewing the office note prior to saving. Coding Level of Care Code Off vis,est,level 3 Diagnoses Dizziness R42 Presence of permanent cardiac pacemaker Z95.0 Essential hypertension I10 Hypertension type: essential hypertension Coding Level of Care Code Off vis,est,level 3 Diagnoses Dizziness R42 Presence of permanent cardiac pacemaker Z95.0 Essential hypertension I10 Hypertension type: essential hypertension 08/06/17 0739 <Electronically signed by Jaden VICENTEC> Date Jaden VICENTEC 08/06/17 0943<Electronically signed by Low Henry MD> Cosigner Signature: Date (if applicable) Low Henry MD CC: Radha Rincon MD PT/INR BATTERY Collected: 07/22/2017 Status: F Source: [facility] 3:[address] [facility] REPOSITORY TYPE CODE TESTS RESULT OUT OF RANGE REFERENCE UNITS LAB PT 11.9-14.2 sec High PT 28.5 LAB INR 0.9-1.1 High INR 2.7 Performed By: #### PTI #### [facility] [address] [place] [id number] [place] [address] [place] [id number] HEMOGRAM (CBC AND Collected: 07/22/2017 Status: F Source: [facility] PLATELET) 3:[address] [facility] REPOSITORY TYPE CODE TESTS RESULT OUT OF REFERENCE UNITS RANGE LAB WBC 4.23-9.07 K/uL WBC Count 5.97 LAB RBC 4.63-6.08 M/uL Low RBC Count 4.60 LAB HGB 13.7-17.5 g/dL Low Hemoglobin 13.4 LAB HCT 40.1-51.0 % Hematocrit 40.6 LAB MCV 79.0-92.2 fL Mean Cell Volume 88.3 LAB MCH 25.7-32.2 pg Mean Cell Hgb 29.1 LAB MCHC 32.3-36.5 g/dL Mean Cell Hgb Conc 33.0 LAB RDW 11.6-14.4 % RBC High Distribution 15.7 LAB PLT 163-337 K/uL Platelet Count 239 LAB MPV 9.4-12.4 fL Low Mean Platelet Volume 9.0 LAB NRBC 0.0-0.2 /100 WBC NUCLEATED RBC 0.0 Performed By: #### HEMOGC, CHM6, LIPDR, A1CB #### [facility] [id number] [place] [id number] CHEM 6 Collected: 07/22/2017 Status: F Source: [facility] 3:[address] [facility] REPOSITORY TYPE CODE TESTS RESULT OUT OF REFERENCE UNITS RANGE LAB BUN 7-22 mg/dL BUN 16 LAB NA 133-143 mmol/L Sodium 141 LAB K 3.5-5.0 mmol/L Potassium 4.2 LAB CL 98-108 mmol/L Chloride 105 LAB CO2 22-30 mmol/L Carbon Dioxide 28 LAB CREA 0.70-1.30 mg/dL Creatinine 0.92 LAB GAP 7-17 mmol/L Anion Gap 12 LAB BC BUN/CREA Ratio 17 LAB GFR >60 mL/min/1.73 sqM Est GFR,non >60 Kenyan LAB GFRA >60 mL/min/1.73 sqM Est GFR, >60 Performed By: #### HEMOGC, CHM6, LIPDR, A1CB #### [facility] [id number] [place] [address] [place] [id number] LIPID PANEL WITH Collected: 07/22/2017 Status: F Source: [facility] [facility] LDL 3:[address] [facility] REPOSITORY TYPE CODE TESTS RESULT OUT OF REFERENCE UNITS RANGE LAB BENEDICTO <200 mg/dL Cholesterol 92 Result Comment: [<200 mg/dL: Desirable] [200-239 mg/dL: Borderline High] [>239 mg/dL: High] LAB TRIGE <150 mg/dL Triglycerides High 249 Result Comment: [<150 mg/dL: Desirable] [150-199 mg/dL: Borderline] [200-499 mg/dL: High] [>500 mg/dL: Very High] LAB HDLC >40.0 mg/dL HDL Cholesterol Low 27 Result Comment: [<40 mg/dL: Low (High Risk)] [>59 mg/dL: High (Low Risk)] LAB LDL 0-99 mg/dL Calculated LDL Cholesterol 15 Result Comment: [<100 mg/dL: Optimal] [100-129 mg/dL: Near Optimal] [130-159 mg/dL: Borderline High] [160-189 mg/dL: High] [>189 mg/dL: Very High] LAB CHR <4.5 Tot CHOL/HDL 3.4 Result Comment: [<4.5: Low risk] LAB NHCHOL <130 mg/dL Non HDL Cholesterol 65 Performed By: #### HEMOGC, CHM6, LIPDR, A1CB #### [facility] [address] [place] [id number] [place] [address] [address] HEMOGLOBIN A1C Collected: 07/22/2017 Status: F Source: [facility] 3:[address] [facility] REPOSITORY TYPE CODE TESTS RESULT OUT OF REFERENCE UNITS RANGE LAB A1C 4.7-5.6 % Hemoglobin A1C 5.6 LAB EAG mg/dL Estimated 114 Average Glucose Performed By: #### HEMOGC, CHM6, LIPDR, A1CB #### [facility] [address] [place] [address] [facility] [address] [address] PACEMAKER CHECK Observed: 07/07/2017 Status: F Source: [place] 2:57 PM [facility] REPOSITORY [facility] [address] [place] [address] Pacemaker Check Date of Service: 06/24/17 1018 MR#: [id number] Acct: [id number] Name: PROSPER AUGUSTINE Rep #: [id number] : 1940 From: [place] Age/Sex: 76/M Location: [facility] [place] Status: Signed Comments Summary Comments: Dual Chamber Pacemaker Evaluation: Interrogation shows no AT/AF episodes and no VT episodes since 03/24/17. Left pectoral pocket/incision w/o s/s of infection or erosion. Pt states he doesn't feel good, dizziness, and stated BP elevated. Presenting rhythm shows AV sequential paced @ 83 ppm. 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 Battery longevity approx 10.5 yrs. Lead impedances, sensing and pace/sense thresholds remain stable. No parameter changes made. Counters cleared. Next remote f/u appt scheduled for in 3 mos. Pt has o.v today for further cardiac evaluation of symptoms. Device Device Date Interviewed: 06/24/17 Follow-up Location: in office Interview Reason: routine follow up Police Commanding Officer: [employer] Name: Advisa MRI Model: A2DR01 Serial #: [id number] Implant Date: 02/23/17 Year(s): 0 Implant Physician: Dr. Micheal Aguilera/[facility] Patient Characteristics Atrial Indication: sick sinus syndrome Ejection fraction %: 50 to 54 (12/11/2016) By: Echo Underlying rhythm: Sinus bradycardia Pacemaker Dependent: No Device Characteristics Device: Dual Chamber Type: Pacemaker Remote Follow-Up: [facility] Device Physical Exam Yes Incision well healed Leads Lead #1 Police Commanding Officer Lead 1: [employer] Model Lead 1: 1688T/46 Serial# Lead 1: [id number] Date Implanted Lead 1: 07/15/04 Position Lead 1: RA Additional Details: Lead explanted @ [facility] on 02/23/17 d/t fracture Lead #2 Police Commanding Officer Lead 2: Medtronic Model Lead 2: 5076/52 Serial# Lead 2: [id number] Date Implanted Lead 2: 06/18/11 Position Lead 2: RV Lead #3 Police Commanding Officer Lead 3: Medtronic Model Lead 3: 5076/52 Serial# Lead 3: [id number] Date Implanted Lead 3: 02/23/17 Position Lead 3: RA Diagnostics Pacing % RA Pacin.9 % RV Pacin.9 Mode Switching Total # Episodes: 0 % Mode switched: 0 Arrhythmias Non-Sust Episodes: 0 Measurements Battery Voltage (V): 3.05 Magnet Rate (bmp): 85 EUGENIO Voltage: 2.83 Predicted Remaining Longevity (months or years): 10.5 years RA Measurements Signal Amplitude (mV): 4.5 Impedance (Ohms): 437 Threshold Voltage: 0.5 @ PW(ms): 0.4 RV Measurements Signal Amplitude (mV): 3.3 Impedance (Ohms): 418 Threshold Voltage: 0.75 @ PW(ms): 0.4 Misha Settings Pacemaker Mode: DDD Base Rate: 60 bpm Max Track Rate: 130 bpm Maximum AV Delay: 200 msec Bradycardia Output and Sensitivity Settings Right Atrium: 0.4 msec, 2.0 volts, 0.5 mV sensitivity. Right Ventricle: 0.4 msec, 2.0 volts. Billing Codes PM Device Codes: PM Dev Prog Eval, Dual Assessment AND Plan Problems 1. Presence of permanent cardiac pacemaker Z95.0 initial implant 2004; RV lead extraction and implant 2011; Atrial lead revision and generator change 01/2017; 07/06/17 0749 <Electronically signed by La Corrigan > Date La Corrigan 07/07/17 1457<Electronically signed by Low Henry MD> Cosign Signature: Date (if applicable) Low Henry MD CC: CARDIOLOGY VISIT Observed: 06/24/2017 Status: F Source: [place] REPORT 10:34 AM [facility] REPOSITORY [facility] [address] [place] [address] OFFICE VISIT Date of Service: 06/24/17 MR#: [id number] Acct: [id number] Name: PROSPER AUGUSTINE Rep #: [id number] : 1940 Provider: Low Henry MD Age/Sex: 76/M Location: [facility] [place] Status: Signed [facility] Chief Complaint: Follow-up visit Details: PROSPER AUGUSTINE, is a 76 M who presents to the office today for a follow-up visit. He is a gentleman with a history of nonischemic cardiomyopathy estimated ejection fraction of 50% with stage I diastolic dysfunction. He is also status post pacemaker placement. His major complaint at this time refers to dizziness which she has had intermittently. He says this has been going on for a while even before he had his pacemaker implanted. He has been compliant with all his medications he did think that his blood pressure was elevated and he had it rechecked and brought a new blood pressure cuff and it was still elevated. His blood pressures here though in April as well as today are noted to be normal. He also had a pacemaker interrogation today which is noted to be normal. He is not orthostatic. His physical exam demonstrates clear lung almonte regular rate and rhythm and no pedal edema. Intake Intake Visit Reasons: lightheaded, fatigue, dizzy Allergies amlodipine [From Norvasc] Allergy (Verified 05/14/17 11:18) Unknown trazodone Allergy (Verified 05/14/17 11:18) Unknown Medications Atorvastatin Calcium [Lipitor] 80 mg PO QHS 01/14/17 [History Confirmed 06/24/17] Finasteride [Proscar] 5 mg PO DAILY 01/14/17 [History Confirmed 06/24/17] Hydrocodone/Acetaminophen [Henderson 5-325 Tablet] 1 ea PO Q6H PRN PRN 01/14/17 [History Confirmed 06/24/17] Multivitamins,Therapeutic [Multivitamin] 1 tab PO DAILY 01/14/17 [History Confirmed 06/24/17] Omeprazole [Prilosec] 40 mg PO DAILY 01/14/17 [History Confirmed 06/24/17] Warfarin Sodium [Coumadin] 10 mg PO DAILY 01/14/17 [History Confirmed 06/24/17] doxazosin 1 mg tablet 1 mg PO QDAY #30 tab 05/14/17 [Rx Confirmed 06/24/17] losartan 50 mg tablet 50 mg PO QDAY #90 tab 05/14/17 [Rx Confirmed 06/24/17] tamsulosin 0.4 mg capsule 0.4 mg PO DAILY cap 05/14/17 [History Confirmed 06/24/17] warfarin 6 mg tablet 6 mg PO QDAY tab 05/14/17 [History Confirmed 06/24/17] [facility] PEYMAN (obstructive sleep apnea) (Chronic) Nonrheumatic tricuspid (valve) insufficiency (Chronic) Nonrheumatic mitral (valve) insufficiency (Chronic) Nonrheumatic aortic (valve) insufficiency (Chronic) Presence of permanent cardiac pacemaker (Chronic 07/15/04) Complete heart block (Chronic) DVT (deep venous thrombosis) (Chronic) Diverticulitis (Chronic) Pulmonary embolism (Chronic) Surgical History cystourethroscopy (Acute 2003) H/O shoulder replacement (Chronic) History of bilateral hip replacements (Chronic) History of colonoscopy (Chronic) 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) Family History Father Alcoholism Social History Smoking Status: Never smoker alcohol intake: never substance use type: does not use caffeine: Yes Type: coffee Number of servings: 3, tea what type of physical activity do you participate in: other details: [employer] frequency: 3-4 times per week duration: 30-45 minutes/day seatbelt use: always do you feel safe at home: Yes ROS Const Const: Negative for fatigue, weakness, body ache, fever(s), headache(s), chills, frequent falls, night sweats, daytime sleepiness, difficulty sleeping, excessive sweating, weight gain, weight loss, increased appetite, poor appetite, anorexia or other Eyes Eyes: Negative for blind spots, loss of peripheral vision, transient loss of vision, blurry vision, change in vision, double vision, floaters, tunnel vision or other ENT ENT: Negative for headache(s) Neuro Neuro: Negative for weakness, headache(s), frequent falls, blurry vision or double vision Endo Endo: Negative for fatigue or excessive sweating Cardiology Exam Const Appearance: cooperative, healthy appearing, well developed, well groomed and no acute distress Nutritional Appearance: well nourished and average body habitus Orientation: alert, awake and oriented x3 Head Head: normal to inspection, normocephalic and atraumatic Ears: hearing grossly normal bilaterally and external ears normal Nose: external nose normal, nasal mucous membranes and turbinates normal, nares normal, septum normal, no nasal discharge Face and Sinus: face symmetric Mouth: oral mucosae normal, tongue normal, oropharynx normal and moist mucous membranes Teeth and gingiva: dentition normal Throat: posterior oropharynx normal, tonsils normal and uvula midline Eyes General: appearance normal, both eyes and all related structures Eyelids: eyelids normal Conjunctivae: conjunctivae normal Pupils: PERRL, normal by confrontation and accommodation normal EOM: EOM intact bilaterally Neck Neck: normal visual inspection, trachea midline and no JVD JVD: +5 Carotids: normal carotid upstroke and bounding pulses Chest Chest inspection: normal inspection of the chest, symmetric chest movement and normal respiratory effort Auscultation: Bilateral: Clear to Auscultation Cardio Palpation: normal PMI Rate: regular rate Rhythm: regular rhythm Heart sounds: S1 normal, S2 normal and normal, physiologic split S2; negative rub, gallop or murmur GI GI: normal to inspection, soft, no hepatosplenomegaly and bowel sounds present Neuro General: alert, awake, oriented x3, no focal sensory deficit, gait normal and moves all extremities Skin Skin: no rashes or lesions noted Extremities Pulses: Normal: Right Femoral Pulse, Left Femoral Pulse, Right Dorsalis Pedis Pulse, Left Dorsalis Pedis Pulse, Right Posterior Tibial Pulse, Left Posterior Tibial Pulse, Right Radial Pulse, Left Radial Pulse Lower Extremity Edema: None: Bilateral Musculoskel Musculoskeletal: No joint tenderness Psych Psychological: normal affect Assessment AND Plan 1. Dizziness R42 Plan The etiology of his dizziness is not entirely clear to me at this particular time his blood pressure he has been normal and he is not orthostatic. Indeed the previous time he was seen his blood pressure was noted to be low. I recommend that we discontinue his Cardura. He appears to be on Cardura finasteride as well as Flomax for prostate issues. He should call us in a week or 2 to let us know how he is doing at that time. Follow-up visit will be set up in 6 weeks. 2. Presence of permanent cardiac pacemaker Z95.0 initial implant 2004; RV lead extraction and implant 2011; Atrial lead revision and generator change 01/2017; Plan He is status post permanent pacemaker implantation his pacemaker interrogation today demonstrated adequate battery longevity of 10.5 years he is AV paced approximately 60% of the time he has had no atrial flutter and no VT lead impedances have been normal. 3. Essential hypertension I10 Plan His blood pressure appears to be under good control by our measurements over here I am asking him to continue checking this at home as well. Thank you for allowing me to participate in the care of your patient. Please don't hesitate to call if any issues arise Plan Detail Follow Up 6 Months 6 Weeks ([facility]) Coding Level of Care Code Off vis,est,level 4 Diagnoses Dizziness R42 Presence of permanent cardiac pacemaker Z95.0 Essential hypertension I10 Hypertension type: essential hypertension Coding Level of Care Code Off vis,est,level 4 Diagnoses Dizziness R42 Presence of permanent cardiac pacemaker Z95.0 Essential hypertension I10 Hypertension type: essential hypertension 06/24/17 1034 <Electronically signed by Low Henry MD> Date Low Henry MD Cosigner Signature: Date (if applicable) CC: PROTHROMBIN TIME W/INR Collected: 06/03/2017 Status: F Source: [place] 10:03 AM [facility] REPOSITORY Order Comment: PLEASE CALL AND FAX RESULTS TYPE CODE TESTS RESULT OUT OF RANGE REFERENCE UNITS LAB L300.4150 11.7-14.9 SECONDS High PROTIME 32.6 LAB L300.4200 Normal INR 3.3 Result Comment: RESULTS CALLED TO GISELA GUTIERREZ 06/03/17 Selin7 Derrick Millard. REPORT READ BACK BY SAME. Performed By: #### L300.3900 #### [facility] [address] [place], [address] CARDIOLOGY VISIT Observed: 05/16/2017 Status: F Source: [place] REPORT 5:03 PM [facility] REPOSITORY [facility] [address] [place] [address] OFFICE VISIT Date of Service: 05/14/17 MR#: [id number] Acct: [id number] Name: PROSPER AUGUSTINE Rep #: [id number] : 1940 Provider: FRENCH Torres Age/Sex: 76/M Location: [facility] [place] Status: Signed with Addenda ADDENDUM by FRENCH Torres on 05/14/17 at 1603 Addendum entered and electronically signed by LISA Phoenix 05/14/17 16:03: Assessment AND Plan 1. Complete heart block I44.2 LISA [place] Patient's pacemaker/ICD check showed one episode of AV dissociation. Patient denies any correlating symptoms with this date. We will continue to monitor this. We will continue current medications. 2. Presence of permanent cardiac pacemaker Z95.0 initial implant 2004; RV lead extraction and implant 2011; Atrial lead revision and generator change 01/2017; LISA [place] Patient is status post recent lead revision in February 2017. Patient's pacemaker/ICD appears to be functioning appropriately. We will continue to monitor this with routine/scheduled follow-ups. 3. Essential hypertension I10 LISA [place] Patient states that his blood pressure has been elevated at home. Thus he sought office visit appointment. His blood pressure is well-controlled today in our office. His blood pressure cuff did not correlate with office blood pressure reading. Patient's blood pressure with pulmonology office in February 2017 was also stable. Patient was asked to obtain a new cuff and bring it in for correlation at his next office visit. He is also asked to contact our office if he develops any concerning symptoms. After completion of this note patient did return with a new blood pressure cuff for correlation. It did correlate with manual blood pressure reading. When reviewing blood pressures at home with this new cough his blood pressure did remain elevated. We will start Cardura 1 mg and further evaluate. Patient was asked to continue to monitor blood pressure at home and contact us if blood pressure increases or remains elevated. We will titrate medication accordingly. 4. Mixed hyperlipidemia E78.2 LISA [place] Patient states this is managed by primary care physician. We will continue current cholesterol lowering medication. 5. Valvular heart disease I38 Plan - LISA [place] Patient's most recent echocardiogram from November 2016 showed mild mitral valve insufficiency, mild tricuspid valve insufficiency, and mild aortic valve insufficiency. Patient denies any secondary symptoms from this. We will continue to monitor this through exam and repeat echocardiogram as needed. 6. Other acute pulmonary embolism without acute cor pulmonale I26.99 Plan - LISA [place] Patient will continue with Coumadin therapy for this. Plan Detail Other Medications New: Additional Comments - LISA [place] Discussed the above patient with Dr. Alston in Dr. Henry's absence, he agrees with the plan of care. Thank you for allowing us to participate in the patients plan of care, if you have any questions please do not hesitate to call. This note was generated using a voice recognition system and there may be incorrect words, spelling or punctuation that were not noted when reviewing the office note prior to saving. 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) 05/14/17 1603 <Electronically signed by Jaden GONZALEZ> Date Jaden Torres cc: * Signed HPI irregular BP: Details: PROSPER AUGUSTINE, is a 76 M who presents to the office today for a cardiovascular outpatient follow-up. Patient is a history of complete heart block status post permanent pacemaker implantation, hypertension, and hyperlipidemia. Pt. denies chest, arm, jaw, or neck discomfort. His exercise tolerance is stable. Pt. denies symptoms of CHF, palpitations, lightheadedness, dizziness, near syncope, or syncopal episodes. Pt. denies edema or claudication issues. Pt. denies orthopnea, PND, fever, chills, blood in urine, blood in stool, myalgia, or unexplainable fatigue. Pacemaker/ICD check from February 2017 showed 1 NSVT episode with stored E mjams showing MVT (AV dissociated) Echocardiogram from November 2016 showed estimated ejection fraction of 50%, and stage I diastolic dysfunction. 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 Accompanied by: Is patient in pain?: No Allergies amlodipine [From Norvasc] Allergy (Verified 05/14/17 11:18) Unknown trazodone Allergy (Verified 05/14/17 11:18) Unknown Medications Atorvastatin Calcium [Lipitor] 80 mg PO QHS 01/14/17 [History Confirmed 05/14/17] Finasteride [Proscar] 5 mg PO DAILY 01/14/17 [History Confirmed 05/14/17] Hydrocodone/Acetaminophen [Henderson 5-325 Tablet] 1 ea PO Q6H PRN PRN 01/14/17 [History Confirmed 05/14/17] Multivitamins,Therapeutic [Multivitamin] 1 tab PO DAILY 01/14/17 [History Confirmed 05/14/17] Omeprazole [Prilosec] 40 mg PO DAILY 01/14/17 [History Confirmed 05/14/17] Sertraline HCl [Zoloft] 100 mg PO DAILY 01/14/17 [History Confirmed 05/14/17] Warfarin Sodium [Coumadin] 10 mg PO DAILY 01/14/17 [History Confirmed 05/14/17] losartan 50 mg tablet 50 mg PO QDAY #90 tab 05/14/17 [Rx Confirmed 05/14/17] tamsulosin 0.4 mg capsule 0.4 mg PO DAILY cap 05/14/17 [History Confirmed 05/14/17] warfarin 6 mg tablet 6 mg PO QDAY tab 05/14/17 [History Confirmed 05/14/17] Ejection fraction %: 50 to 54 PFSH Medical History PEYMAN (obstructive sleep apnea) (Chronic) Nonrheumatic tricuspid (valve) insufficiency (Chronic) Nonrheumatic mitral (valve) insufficiency (Chronic) Nonrheumatic aortic (valve) insufficiency (Chronic) Presence of permanent cardiac pacemaker (Chronic 07/15/04) Complete heart block (Chronic) DVT (deep venous thrombosis) (Chronic) Diverticulitis (Chronic) Pulmonary embolism (Chronic) Surgical History cystourethroscopy (Acute 2003) History of colonoscopy (Chronic) 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) Family History Father Alcoholism Social History Smoking Status: Never smoker alcohol intake: never substance use type: does not use caffeine: Yes Type: coffee Number of servings: 3, tea what type of physical activity do you participate in: other details: Remember The Member frequency: 3-4 times per week duration: 30-45 minutes/day seatbelt use: always do you feel safe at home: Yes ROS Const Const: Negative for weakness, body ache, fever(s), chills or fatigue ENT ENT: Negative for dizziness Cardio Chest Pain: No Palpitations: Positive for No Edema: None Muscle aches with walking: None Resp Respiratory: Negative for SOB with activity, SOB at rest, SOB orthopnea\SOB lying down or paroxysmal nocturnal dyspnea GI GI: Negative nausea, black,tarry stools, bright, red blood in stools or vomiting blood/hematemesis : Negative for hematuria or frequent nighttime urination/ nocturia Musc Musc: Negative for muscle aches/ myalgia Neuro Neuro: Negative for lightheadedness, Negative for near syncope, Negative for syncope, Negative for orthostatic symptoms, Negative for weakness, Negative for dizziness Endo Endo: Negative for fatigue Cardiology Exam Const Appearance: cooperative, healthy appearing, comfortable and no acute distress Orientation: alert, awake and oriented x3 Head Head: normal to inspection Mouth: oral mucosae normal Neck Neck: no JVD and normal visual inspection Carotids: normal carotid upstroke Chest Chest inspection: normal inspection of the chest and normal respiratory effort Auscultation: Bilateral: Clear to Auscultation Cardio Rate: regular rate Rhythm: regular rhythm Heart sounds: S1 normal and S2 normal; negative rub or gallop GI GI: normal to inspection Neuro General: alert, awake, oriented x3 and CN's II-XI intact bilaterally Skin Skin: no rashes or lesions noted Extremities Pulses: Normal: Right Posterior Tibial Pulse, Left Posterior Tibial Pulse, Right Radial Pulse, Left Radial Pulse Lower Extremity Edema: None: Bilateral Psych Psychological: normal affect Assessment AND Plan 1. Complete heart block I44.2 Plan - LISA Phoenix Patient's pacemaker/ICD check showed one episode of AV dissociation. Patient denies any correlating symptoms with this date. We will continue to monitor this. We will continue current medications. 2. Presence of permanent cardiac pacemaker Z95.0 initial implant 2004; RV lead extraction and implant 2011; Atrial lead revision and generator change 01/2017; LISA Monroy Patient is status post recent lead revision in February 2017. Patient's pacemaker/ICD appears to be functioning appropriately. We will continue to monitor this with routine/scheduled follow-ups. 3. Essential hypertension I10 LISA Monroy Patient states that his blood pressure has been elevated at home. Thus he sought office visit appointment. His blood pressure is well-controlled today in our office. His blood pressure cuff did not correlate with office blood pressure reading. Patient's blood pressure with pulmonology office in February 2017 was also stable. Patient was asked to obtain a new cuff and bring it in for correlation at his next office visit. He is also asked to contact our office if he develops any concerning symptoms. 4. Mixed hyperlipidemia E78.2 LISA Monroy Patient states this is managed by primary care physician. We will continue current cholesterol lowering medication. 5. Valvular heart disease I38 LISA Monroy Patient's most recent echocardiogram from November 2016 showed mild mitral valve insufficiency, mild tricuspid valve insufficiency, and mild aortic valve insufficiency. Patient denies any secondary symptoms from this. We will continue to monitor this through exam and repeat echocardiogram as needed. 6. Other acute pulmonary embolism without acute cor pulmonale I26.99 Plan LISA Tobias Patient will continue with Coumadin therapy for this. Plan Detail Other Medications New: Additional Comments - LISA Phoenix Discussed the above patient with Dr. Alston in Dr. Henry's absence, he agrees with the plan of care. Thank you for allowing us to participate in the patients plan of care, if you have any questions please do not hesitate to call. This note was generated using a voice recognition system and there may be incorrect words, spelling or punctuation that were not noted when reviewing the office note prior to saving. 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) Coding Level of Care Code Off vis,est,level 3 Diagnoses Complete heart block I44.2 Presence of permanent cardiac pacemaker Z95.0 Essential hypertension I10 Hypertension type: essential hypertension Mixed hyperlipidemia E78.2 Hyperlipidemia type: mixed hyperlipidemia Valvular heart disease I38 Other acute pulmonary embolism without acute cor pulmonale I26.99 Pulmonary embolism type: other Chronicity: acute Acute cor pulmonale presence: without acute cor pulmonale 05/14/17 1307 <Electronically signed by Jaden Torres TIRE SERVICE SUPERVISOR-C> Date Jaden Torres TIRE SERVICE SUPERVISOR-C Cosigner Signature: Date (if applicable) CC: PROTHROMBIN TIME W/INR Collected: 04/15/2017 Status: F Source: [place] 9:37 AM [facility] REPOSITORY Order Comment: CALL DR WITH RESULTS [phone] TYPE CODE TESTS RESULT OUT OF RANGE REFERENCE UNITS LAB L300.4150 11.7-14.9 SECONDS High PROTIME 27.9 LAB L300.4200 Normal INR 2.7 Result Comment: RESULTS CALLED TO HOLLEY AT 'S OFFICE 04/15/17 1011 Valorie Baeza. REPORT READ BACK BY SAME. Performed By: #### L300.3900 #### [facility] [place], [address] ALLERGIES ALLERGIES DATE TYPE / CODE NAME / CODE REACTION SEVERITY SOURCE 03/04/2018 Drug amlodipine/F Unknown Unknown [facility] Allergy/4160 [id number]([place] 1428702(SNOMED NORM) Repository CT) 03/04/2018 Drug trazodone/F0 Unknown Unknown [facility] Allergy/4160 [id number]([place] 5295702(SNOMED ORM) Repository CT) ENCOUNTERS ENCOUNTERS ADMIT/DISCHARGE ACCOUNT NUMBER ADMITTING ENCOUNTER LOCATION SOURCE CLASS 04/14/2018 [id number] Ambulatory [facility] ding:LAB Repository 04/07/2018/04/07/20 [id number] rAun HOBBS Building:[address] SECRoom: [facility] Repository 03/15/2018/03/26/20 [id number] Ambulatory [address] ding:LAB Repository 03/04/2018/03/04/20 [id number] Ambulatory BMSBuilding: [place] 18 [facility] Repository 02/22/2018/02/23/20 [id number] Ambulatory [place] 18 [facility] ding:LAB Repository 02/12/2018 [id number] [facility] Rep[facility] URE 01/11/2018/01/12/20 [id number] Ambulatory [place] 18 [facility] ding:LAB Repository 01/07/2018/01/08/20 [id number] Ambulatory BMSBuilding: [place] 18 [facility] Repository 12/08/2017/12/09/19 [id number] Ambulatory [place] 18 [facility] ding:LAB Repository 11/24/2017 [id number] Ambulatory Building:2 [facility] Repository 11/10/2017/11/11/19 [id number] Ambulatory BMSBuilding: [place] 18 [facility] Repository 11/03/2017/11/04/19 [id number] Ambulatory [place] 18 [facility] ding:LAB Repository 10/07/2017/10/08/19 [id number] Ambulatory [place] 18 [facility] ding:LAB Repository 09/29/2017/09/30/19 [id number] Ambulatory BMSBuilding: [place] 18 [facility] Repository 09/16/2017 [id number] [facility] [facility] Rep[facility] 09/03/2017/09/04/19 [id number] Ambulatory [place] 18 [facility] ding:LAB Repository 08/19/2017/08/20/19 [id number] Ambulatory [place] 18 [facility] ding:LAB Repository 08/05/2017/08/06/19 [id number] Ambulatory BMSBuilding: [place] 18 [facility] Repository 08/04/2017 [id number] Ambulatory BMSBuilding: [place] BMS.[facility] Repository 08/04/2017 [id number] Ambulatory BMS [facility] Repository 07/22/2017 [id number] Ambulatory Building:LSI [facility] Repository 07/22/2017 [id number] Ambulatory Building:I [facility] Repository 07/22/2017 [id number] Ambulatory Building:SI2 [facility] Repository 07/15/2017/07/16/19 [id number] Ambulatory [place] 18 [facility] ding:LAB Repository 06/24/2017/06/24/19 [id number] Ambulatory BMSBuilding: [place] 18 [facility] Repository 06/24/2017 [id number] Ambulatory BMSBuilding: [place] BMS.[facility] Repository 06/24/2017/06/24/19 [id number] Ambulatory BMSBuilding: [place] 18 [facility] Repository 06/11/2017 [id number] Ambulatory BMSBuilding: [place] BMS.[facility] Repository 06/01/2017 [id number] Ambulatory Building:[facility] Repository 05/27/2017/05/27/19 [id number] Ambulatory [place] 18 [facility] ding:LAB Repository 05/14/2017/05/14/19 [id number] Ambulatory BMSBuilding: [place] 18 [facility] Repository 04/22/2017/04/26/20 [id number] Ambulatory [place] 17 [facility] ding:LAB Repository PAYERS PAYERS ENCOUNTER GUARANTOR PAYER SUBSCRIBER SOURCE 04/14/2018 PROSPER W Primary PROSPER W [place] [id number] [place] Insurance:AETNA BETHELDOB: [facility] Number: [id number] Hospital [address]Wnd: (173) [id number] Repository [phone] () Date:5187-98-52KF [address]IA[address]YC[address] BLACK [address]IQ: 04/14/2018 Secondary NOT GIVENUNK [place] Insurance:SELF PAY [facility] Number: Effective Repository Date:2018-03-29 04/07/2018 PROSPER W Primary PROSPER H[place] [facility] BETHELDOB: Insurance:MEDICARE BETHELDOB: Max [id number] AETNA PPOPolicy [id number] [facility] Number: 0 [place], [place] [id number] [place], [place] Repository [address]Uof: (234) Date:7210-03-66Blxa 20887Gyo: Name:[facility] [phone] () () () 03/15/2018 PROSPER Hanna Primary PROSPER [place] [id number] [place] Insurance:AETNA [facility]: [id number] Hospital 80646Tes: (234) [id number] Repository [phone] () Date:0454-81-05WL [facility] [place] [address]YY: 03/15/2018 Secondary NOT GIVENUNK [place] Insurance:SELF PAY [facility] Number: Effective Repository Date:2018-02-25 03/04/2018 PROSPER Hanna Primary PR[place]PER [place] [id number] [place] Insurance:AETNA [facility]: [id number] Hospital [address]95[address]Oiu: (234) [id number] Repository [phone] () Date:4957-58-50VA [facility] [address] [address]CB: 03/04/2018 Secondary NOT GIVENUNK [place] Insurance:SELF PAY [facility] Number: Effective Repository Date:2018-02-24 02/22/2018 PROSPER W Primary PROSPER [place] [id number] [place] Insurance:AETNA [facility]LDOB[facility] Number: [id number] Hospital 16[address]Xbt: (234) [id number] Repository [phone] (HP) Date:6699-49-74UQ [address] [address]IL: 02/22/2018 Secondary NOT GIVENUNK [place] Insurance:SELF PAY [facility] Number: Effective Repository Date:2018-01-27 02/12/2018 PROSPER W Primary PROSPER Hanna [place] [id number] [place] Insurance:AETNA [place]OB[place] MCR[place] Number: [id number] Hospital 8[address]Nbb: (234) [id number] Repository [phone] (HP) Date:5703-16-93JF [address] [address]AS: 02/12/2018 Secondary NOT GIVENUNK [place] Insurance:SELF PAY [facility] Number: Effective Repository Date:2018-02-12 01/11/2018 PROSPER W Primary PROSPER Hanna [place] [id number] [place] Insurance:AETNA [place]OB: [place]: [id number] Hospital 639[address]Snv: (234) [id number] Repository [phone] (HP) Date:7306-97-82NH [address] [address]ZH: 01/11/2018 Secondary NOT GIVENUNK [place] Insurance:SELF PAY [facility] Number: Effective Repository Date:2017-12-29 01/07/2018 PROSPER W Primary PROSPER [place] [id number] [place] Insurance:AETNA [place]OB: [place]: [id number] Hospital [address]Syo: (234) [id number] Repository [phone] (HP) Date:5147-38-73YD [address] [address]TV: 01/07/2018 Secondary NOT GIVENUNK [place] Insurance:SELF PAY [facility] Number: Effective Repository Date:2018-01-13 12/08/2017 PROSPER W Primary PROSPER [place] [id number] [place] Insurance:AETNA [facility]LDOB: [facility] Number: [id number] Hospital 0220[address]Ilk: (234) [id number] Repository [phone] (HP) Date:1262-21-27FB [address] TO ALYCIA [address]ZU: 12/08/2017 Secondary NOT GIVENUNK [place] Insurance:SELF PAY [facility] Hospital Number: Effective Repository Date:2017-11-26 11/24/2017 PROSPER W Primary PROSPER Hanna [facility] BETHELDOB: Insurance:MEDICARE BETHELDOB: Max [id number] AETNA [facility] [id number] [facility] Number: 0 [place], [place] [id number] [place], [place] Repository [address]Bst: (234) Date:6855-41-87Fhmu 91108Htx: Name:[facility] [phone] () (HP) () 11/10/2017 PROSPER W Primary PR[place]PER [place] [id number] [place] Insurance:AETNA [facility]LDOB: [facility] Number: [id number] Hospital 35910Sio: (234) [id number] Repository [phone] () Date:9784-66-03KA [address] [address]JS: 11/10/2017 Secondary NOT GIVENUNK [place] Insurance:SELF PAY [facility] Hospital Number: Effective Repository Date:2017-11-10 11/03/2017 PROSPER W Primary PROSPER [place] [id number] [place] Insurance:AETNA [facility]LDOB: [facility] Number: [id number] Hospital 86734Qoo: (234) [id number] Repository [phone] () Date:5408-88-78RC [address] [address]VN: 11/03/2017 Secondary NOT GIVENUNK [place] Insurance:SELF PAY [facility] Number: Effective Repository Date:2017-10-23 10/07/2017 PROSPER W Primary PROSPER Hanna [place] [id number] [place] Insurance:AETNA [facility]LDOB: [facility] Number: [id number] Hospital 24613Ydu: (234) [id number] Repository [phone] (HP) Date:9195-61-28TF [address] [address]GR: 10/07/2017 Secondary NOT GIVENUNK [place] Insurance:SELF PAY [facility] Hospital Number: Effective Repository Date:2017-09-24 09/29/2017 PROSPER W Primary PROSPER Hanna [place] [id number] [place] Insurance:AETNA [facility]LDOB: [facility] Number: [id number] Hospital 38127Hoc: (234) [id number] Repository [phone] () Date:9831-82-73BA [address] [address]NK: 09/29/2017 Secondary NOT GIVENUNK [place] Insurance:SELF PAY [facility] Hospital Number: Effective Repository Date:2017-10-13 09/16/2017 PROSPER W Primary PROSPER [place]anna [place] [id number] [place] Insurance:AETNA [facility]LDOB: [facility] Number: [id number] Hospital 09978Ptw: (234) [id number] Repository [phone] () Date:5861-00-65JS [address] [address]EC: 09/16/2017 Secondary NOT GIVENUNK [place] Insurance:SELF PAY [facility] Hospital Number: Effective Repository Date:2017-05-20 2017 PROSPER W Primary PROSPER W [place] [id number] [place] Insurance:AETNA BETHELDOB: [facility] MCRPolicy Number: [id number] Hospital 917[address]Kms: (234) [id number] Repository [phone] (HP) Date:0326-39-84QX [address] [address]YE: 2017 Secondary NOT GIVENUNK [place] Insurance:SELF PAY [facility] Hospital Number: Effective Repository Date:2017-08-25 08/19/2017 PROSPER W Primary PROSPER W [place] [id number] [place] Insurance:AETNA BETHELDOB: [facility] or MCRPolicy Number: [id number] Hospital 54445Jat: (234) [id number] Repository [phone] (HP) Date:0392-53-62QW [address] [address]YT: 08/19/2017 Secondary NOT GIVENUNK [place] Insurance:SELF PAY [facility] Number: Effective Repository Date:2017-07-27 08/05/2017 PROSPER W Primary PROSPER W [place] [id number] [place] Insurance:AETNA BETHELDOB: [facility], or MCRPolicy Number: [id number] Hospital 58843Leb: (234) [id number] Repository [phone] (HP) Date:5400-86-48XG [address]QJ[place] [address]IO: 08/05/2017 Secondary NOT GIVENUNK [place] Insurance:SELF PAY [facility] Hospital Number: Effective Repository Date:2017-08-05 08/04/2017 PROSPER W Primary PROSPER W [place] [id number] [place] Insurance:AETNA BETHELDOB: [facility], or MCRPolicy Number: [id number] Hospital 53761Pfp: (234) [id number] Repository [phone] (HP) Date:6037-87-99LK [address] [address]YV: 08/04/2017 Secondary NOT GIVENUNK [place] Insurance:SELF PAY [facility] Number: Effective Repository Date:2017-08-04 08/04/2017 PROSPER Hanna Primary PROSPER Hanna [place] [id number] [place] Insurance:AETNA BETHELDOB: [facility] Number: [id number] Hospital 80547Ofl: (394) [id number] Repository [phone] () Date:8610-39-50VJ [address] [place] [address]UN: 08/04/2017 Secondary NOT GIVENUNK [place] Insurance:SELF PAY [facility] Number: Effective Repository Date:2017-08-04 07/22/2017 PROSPER Hanna Primary PROSPER Hanna [facility] BETHELDOB: Insurance:MEDICARE BETHELDOB: Max AETNA [facility] [id number] [facility] Number: 0 [place], [place] [id number] [place], [place] Repository [address]Sch: 234) Date:2106-44-33Gshi 40517Zxk: Name:CARE [phone] () () () 07/22/2017 PROSPER Hanna Primary PROSPER Hanna [facility] BETHELDOB: Insurance:MEDICARE BETHELDOB: Max AETNA [facility] [id number] [facility] Number: 0 [place], [place] [id number] [place], [place] Repository [address]Ppt: (234) Date:3831-60-96Jnlb 19053Zyh: Name:CARE [phone] () () (WP) 07/22/2017 PROSPER Hanna Primary PROSPER Hanna [facility] BETHELDOB: Insurance:MEDICARE BETHELDOB: Max AETNA PPOPolicy [id number] [facility] Number: 0 [place], [place] [id number] [place] Repository [address]Ime: (234) Date:7958-90-23Pmde 35229Dqa: Name:[facility] [phone] () () () 07/15/2017 PROSPER W Primary PROSPER W [place] [id number] [place] Insurance:AETNA BETHELDOB: [place] MCRPolicy Number: [id number] Hospital 11542Fqs: (234) [id number] Repository [phone] () Date:8982-06-81YL [address] [place] [address]RH: 07/15/2017 Secondary NOT GIVENUNK [place] Insurance:SELF PAY [facility] Number: Effective Repository Date:2017-05-29 06/24/2017 PROSPER W Primary PROSPER W [place] [id number] [place] Insurance:AETNA [facility]LDOB[facility]: [id number] Hospital 03891Pze: (234) [id number] Repository [phone] () Date:1732-61-50XI [address] [place] [address]WS: 06/24/2017 Secondary NOT GIVENUNK [place] Insurance:SELF PAY [facility] Number: Effective Repository Date:2017-06-24 06/24/2017 PROSPER W Primary PROSPER W [place] [id number] [place] Insurance:AETNA BETHELDOB: [place] MCRPolicy Number: [id number] Hospital 14518Ijh: (234) [id number] Repository [phone] () Date:8725-01-10SX [address] [place] [address]ES: 06/24/2017 Secondary NOT GIVENUNK [place] Insurance:SELF PAY [facility] Hospital Number: Effective Repository Date:2017-06-24 06/24/2017 PROSPER Hanna Primary PROSPER [place] [id number] [place] Insurance:AETNA [facility]LDOB: [facility]: [id number] Hospital 97053Czm: (234) [id number] Repository [phone] () Date:9533-91-91QJ [address] [address]WU: 06/24/2017 Secondary NOT GIVENUNK [place] Insurance:SELF PAY [facility] Number: Effective Repository Date:2017-04-06 06/11/2017 PROSPER Hanna Primary PROSPER [place] [id number] [place] Insurance:AETNA BETHELDOB: [facility] Number: [id number] Hospital 94612Ppo: (234) [id number] Repository [phone] () Date:0337-19-98NY [address] [address]JA: 06/11/2017 Secondary NOT GIVENUNK [place] Insurance:SELF PAY [facility] Hospital Number: Effective Repository Date:2017-04-02 06/01/2017 PROSPER Hanna Primary PROSPER Hanna [facility] BETHELDOB: Insurance:MEDICARE BETHELDOB: Max AETNA [facility] [id number] [facility] Number: 0 [place], [place] [id number] [place], [place] Repository [address]Hwa: (234) Date:7539-47-83Nijh 58544Big: Name:[facility] [phone] () () () 05/27/2017 PROSPER Hanna Primary PROSPER [place] [id number] [place] Insurance:AETNA [facility]LDOB: [facility]: [id number] Hospital 46586Ksr: (234) [id number] Repository [phone] (HP) Date:8216-25-50GS [address] [address]NR: 05/27/2017 Secondary NOT GIVENUNK [place] Insurance:SELF PAY [facility] Number: Effective Repository Date:2017-04-27 05/14/2017 PROSPER W Primary PROSPER W [place] [id number] [place] Insurance:AETNA [place]OB: [place] MCR[place] Number: [id number] Hospital 949[address]Vyl: (234) [id number] Repository [phone] () Date:0863-85-05HU [address]DS[place] [address]WX: 05/14/2017 Secondary NOT GIVENUNK [place] Insurance:SELF PAY [facility] Number: Effective Repository Date:2017-05-13 04/22/2017 Prosper W Primary Prosper W [place] [id number] [place] Insurance:AETNA [place]OB: [place] MCRPolicy Number: [id number] Hospital 214[address]Cua: (234) [id number] Repository [phone] () Date:0073-77-13MV [address]P[place] [address]NT: 04/22/2017 Secondary NOT GIVENUNK [place] Insurance:SELF PAY [facility] Hospital Number: Effective Repository Date:2017-03-27
== END 2018-04-21 10:00 | disposition home or self-care (01) ==
LOC: LAB 09:16
PROVIDERS: Family Provider Internal Medicine; PCP Internal Medicine; Referring Provider Internal Medicine; Visit Provider Internal Medicine
DX: D68.59 Other primary thrombophilia (principal)
CPT/HCPCS: 36415; 85610

== ENCOUNTER 2018-05-22 14:59 | Emergency (ER) | payer MEDICARE, SELFPAY ==
[2018-05-22 15:00] VITALS: BP 164/84; PULSE 78; RESP 18; TEMP 36.3; O2SAT 96; BMI 32.7
--- NOTE | 2018-05-22 15:18 | EKG12_ITS ---
Test Reason : CHEST OTHER Blood Pressure : / mmHG Vent. Rate : 070 BPM Atrial Rate : 070 BPM P-R Int : 260 ms QRS Dur : 172 ms QT Int : 434 ms P-R-T Axes : -05 266 -38 degrees QTc Int : 468 ms Sinus rhythm with 1st degree A-V block Right bundle branch block T wave abnormality, consider lateral ischemia Abnormal ECG Confirmed by RIVERA DYE MD ([id number]), editorial project manager STEFAN SOLIMAN ([id number]) on 05/25/2018 2:11:02 PM Referred By: ANCA Confirmed By:RIVERA DYE MD
--- NOTE | 2018-05-22 15:19 | CT_ITS ---
STUDY: CTA CHEST REASON FOR EXAM: Male, 77 years old. Shortness of breath, burning sensation, history of DVT RADIATION DOSAGE (If Supplied By Facility): CTDIvol = ( 21.20 ) mGy, DLP = ( 682.76 ) mGycm TECHNIQUE: The examination was performed with the intravenous administration of 100ML ml of Isovue 370 contrast material. Post-processing of the angiographic images was performed, with multiplanar reformation and 3D reconstruction. Individualized dose optimization techniques were used for this CT. COMPARISON: None. FINDINGS: Normal enhancement of the main pulmonary artery and right and left pulmonary arteries. Normal enhancement of the bilateral peripheral pulmonary arteries. There is no demonstrated pulmonary embolism. There is atherosclerosis of the thoracic aorta with tortuosity. Cardiac conduction device is noted. There is no demonstrated aortic dissection. Normal heart and pericardium. Normal mediastinum. Normal hilar regions. Normal visualized trachea and bronchi. The lungs are well expanded. There are bandlike parenchymal changes most consistent with atelectasis of the bilateral lungs. Normal pleura. Normal chest wall structures. Bilateral shoulder replacements cause moderate spray artifact. There are degenerative changes of the thoracic spine. There is a simple cyst of the right kidney. CT/CTA Chest W/WO Contrast IMPRESSION: No central or segmental pulmonary embolism. Electronically Signed: Thad Dickinson MD at 17:38 EST , Service support ,
--- NOTE | 2018-05-22 15:23 | ED.VISSUMM ---
- ER Visit Summary Date of Service: 05/22/18 Chief Complaint: [] Cough chest congestion for weeks, burning discomfort and chest for about 2 days History of Present Illness: The patient is a 77 M [] that about a week to 10 days ago he developed a runny nose cough and chest congestion he was seen in urgent care center last week started on some unspecified medications including Proventil inhaler, reports he improved, then night into Thursday he began having intermittent chest burning he describes a burning sensation that began in the epigastrium that went into the neck, he has no history of [place] PE, 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 has been on Coumadin recently had colonoscopy 4 weeks ago so the Coumadin was stopped for about 5 days and then resumed so has been on a constant dose of Coumadin for about 3-4 weeks but his INRs have not been therapeutic, his has been producing some mucus, he denies any orthopnea PND or exertional symptoms indicates the burning chest pain simply comes on and goes away on its own last about 5 minutes currently asymptomatic He does have a pacemaker in place related to have bradycardia, at that time he had a cardiac cath that showed no blockages requiring stenting or CABG, he also reports she has had a nuclear cardiac stress test in the past is not sure when that was unremarkable showing no signs of CAD or ischemic changes Physical Examination: [] 164/80 95% room air pulse ox General, no distress resting comfortably HEENT is generally unremarkable The neck is supple no adenopathy Cardiovascular, regular rate and rhythm Lungs, clear bilateral Abdomen, soft nontender Extremities, no clubbing cyanosis or edema Neurologic, awake alert answering questions appropriately moving all 4 extremities Test Results: [] Emergency Department Course and Treatment: [] EKG shows a sinus rhythm right bundle flipped T waves diffusely no old EKGs for comparison is differentials rather extensive which include angina PE reflux etc. he describes rhinorrhea harsh cough The patient's screening labs are unremarkable see those results, INR 2.1, the EKG shows a sinus rhythm right bundle branch block with nonspecific T wave changes primarily in V1 through V3 no old EKGs available for comparison his troponin and other cardiac markers are negative, CTA of chest shows no PE or other acute gross abnormality see those reports Evaluation he is resting comfortably he has no complaints discussed all the test with him and the discussed that the etiology of his symptoms and burning sensation are unclear we discussed inpatient versus outpatient management the concept of occult life-threatening conditions contributing to his symptomatology, he voiced understanding of all the above but said he wanted to go home and preferred outpatient management, he will return for change in symptoms and see his asset analyst as soon as possible and again return for change in symptoms Treatment Plan: [] Disposition: [] Home stable declined admission Impression: [] URI with harsh cough, nonspecific burning sensation in chest, history of cardiac pacemaker, prior DVT This note was generated with [employer] dictation software. It may contain incorrect words, spelling, and punctuation that were not noted in review of the chart prior to signing ED Disposition - Plan for ED Patient: Chief Complaint: Shortness of Breath Referrals: Radha Pritchard MD [Primary Care Provider] -
--- NOTE | 2018-05-22 15:27 | NURSING ---
NO OLD EKG TO OBTAIN
[2018-05-22 15:32] VITALS: PULSE 68; RESP 18
[2018-05-22] MEDS: Ipratropium/Albuterol Sulfate 3 ML AMPUL.NEB INHALATION (15:32)
--- NOTE | 2018-05-22 15:35 | RAD_ITS ---
STUDY: X-RAY CHEST REASON FOR EXAM: Male, 77 years old. Burning pain in the chest. TECHNIQUE: Single AP portable view of the chest. COMPARISON: None. FINDINGS: The lungs are clear and expanded. There is no demonstrated pleural abnormality. Normal size heart. Pacemaker is seen with leads terminating in the right atrium and right ventricle. Normal mediastinum and sandie. Normal visualized pulmonary arteries. There is atherosclerotic calcification of the aortic arch with tortuosity. Normal visualized thoracic spine. There are bilateral shoulder arthroplasties. There is no demonstrated abnormality of the visualized soft tissue structures of the upper abdomen. RAD/Chest 1 View (Portable) IMPRESSION: No acute chest disease. Electronically Signed: Rich Kennedy MD at 16:57 EST , Service support ,
[2018-05-22] MEDS: 0.9% Normal Saline 1,000 ML 150 ML IV (15:43)
[2018-05-22 15:55] VITALS: O2SAT 92
[2018-05-22 15:56] LABS: International Normalized Ratio 2.1; Prothrombin Time (Protime)PT. 23.6 SECONDS (11.7-14.9)
[2018-05-22 16:09] LABS: Absolute Lymphocyte Count 0.49 X10^3/ul (0.83-4.51); Absolute Neutrophil Count 4.9 X10^3/uL (2.0-7.7); Basophil# 0.01 X10^3/uL; Basophil% 0.2 % (0-1); Eosinophil# 0.01 X10^3/uL; Eosinophils% 0.2 % (0-5); Hematocrit 42.3 % (40-54); Hemoglobin 13.9 g/dl (13.0-16.5); Lymphocyte # 0.49 X10^3/ul (4.0); Lymphocyte % 8.8 % (19-41); Mean Corp Hgb Conc 32.9 g/gl (32-36); Mean Corpuscular Hgb 29.4 pg (27.0-32.0); Mean Corpuscular Volume 89.6 fL (80-94); Mean Platelet Vol. 9.1 fl (6.2-12.0); Monocyte% 1.8 % (0-10); Neutrophil # 4.94 X10^3/uL (2.7-7.7); POSITIVE COUNT NO; POSITIVE DIFFERENTIAL YES; POSITIVE MORPHOLOGY NO; Platelet Count 188 K/mm3 (150-450); RBC Distribution Width CV 14.6 % (11.6-14.6); RBC Distribution Width SD 47.5 fl (35.1-43.9); Red Blood Count 4.72 M/mm3 (4.6-6.2); White Blood Count 5.6 K/mm3 (4.4-11.0)
[2018-05-22 16:10] LABS: Anion Gap 7 (5-15); BUN 28 mg/dL (7-18); BUN/Creat Ratio 23.1 RATIO (10-20); Chloride 108 mmol/L (98-107); Creatinine, Serum 1.21 mg/dL (0.70-1.30); Differential Indicated SCAN CRITERIA MET; EST Glomerular Filtration Rate 62 mL/min (>60); Est Glom Filt Rate - Afr Amer 75 mL/min (>60); Estimated Creatinine Clearance 57.78 ml/min; Glucose 160 mg/dL (74-106); Potassium 3.7 mmol/L (3.5-5.1); Sodium Level 139 mmol/L (136-145)
[2018-05-22 16:53] LABS: Anisocytosis RARE; Platelet Estimate ADEQUATE (ADEQ)
[2018-05-22 17:00] VITALS: BP 149/99; PULSE 76; RESP 16; O2SAT 96
[2018-05-22 17:12] LABS: BNP,B-Type NATRIURETIC PEPTIDE 191.4 pg/mL (0-100)
--- NOTE | 2018-05-22 18:03 | ED.DEP ---
ED Disposition - Plan for ED Patient: Chief Complaint: Shortness of Breath Instructions: ED Chest Pain Atypical Unkn Cause Referrals: Radha Pritchard MD [Primary Care Provider] -
[2018-05-22 18:23] VITALS: BP 156/100; PULSE 62; RESP 19; O2SAT 98
== END 2018-05-22 18:23 | disposition home or self-care (01) ==
PROVIDERS: Emergency Provider Emergency Medicine; Family Provider Internal Medicine; PCP Internal Medicine
DX: J06.9 Acute upper respiratory infection, unspecified (principal); R05 Cough; I45.10 Unspecified right bundle-branch block; Z95.0 Presence of cardiac pacemaker; Z86.718 Personal history of other venous thrombosis and embolism; R06.02 Shortness of breath
CPT/HCPCS: 71045; 71275; 80048; 83880; 84484; 85025; 85610; 87804; 93005; 94640; 96360; 96361; 99285; J7030; J7040; Q9967; A4216

== ENCOUNTER 2018-05-26 09:45 | Outpatient (RCR) | payer MEDICARE, SELFPAY ==
[2018-04-28 09:36] LABS: Prothrombin Time (Protime)PT. 24.5 SECONDS (11.7-14.9)
[2018-04-28 09:51] LABS: International Normalized Ratio 2.2
[2018-05-05 09:39] LABS: International Normalized Ratio 1.9; Prothrombin Time (Protime)PT. 21.9 SECONDS (11.7-14.9)
[2018-05-12 10:17] LABS: Prothrombin Time (Protime)PT. 22.8 SECONDS (11.7-14.9)
[2018-05-19 09:19] LABS: International Normalized Ratio 1.5
[2018-05-19 09:39] LABS: Prothrombin Time (Protime)PT. 17.8 SECONDS (11.7-14.9)
[2018-05-21 09:05] LABS: Prothrombin Time (Protime)PT. 21.6 SECONDS (11.7-14.9)
[2018-05-21 09:15] LABS: International Normalized Ratio 1.9
[2018-05-26 10:13] LABS: Prothrombin Time (Protime)PT. 27.7 SECONDS (11.7-14.9)
[2018-05-26 10:22] LABS: International Normalized Ratio 2.6
== END 2018-05-26 10:00 | disposition home or self-care (01) ==
LOC: LAB 09:45
PROVIDERS: Family Provider Internal Medicine; PCP Internal Medicine; Referring Provider Internal Medicine; Visit Provider Internal Medicine
DX: D68.59 Other primary thrombophilia (principal)
CPT/HCPCS: 36415; 85610

== ENCOUNTER 2018-06-16 14:54 | Outpatient (RCR) | payer MEDICARE, SELFPAY ==
[2018-05-28 06:26] VITALS: BMI 31.6
[2018-06-02 10:43] LABS: Prothrombin Time (Protime)PT. 25.5 SECONDS (11.7-14.9)
[2018-06-02 10:52] LABS: International Normalized Ratio 2.3
[2018-06-16 15:40] LABS: International Normalized Ratio 2.1
[2018-06-16 16:00] LABS: Prothrombin Time (Protime)PT. 23.8 SECONDS (11.7-14.9)
== END 2018-06-24 13:33 | disposition home or self-care (01) ==
LOC: LAB 14:54
PROVIDERS: Family Provider Internal Medicine; PCP Internal Medicine; Referring Provider Internal Medicine; Visit Provider Internal Medicine
DX: D68.59 Other primary thrombophilia (principal)
CPT/HCPCS: 36415; 85610

== ENCOUNTER 2018-07-13 09:14 | Outpatient (RCR) | payer MEDICARE, SELFPAY ==
[2018-05-28 06:26] VITALS: BMI 31.6
[2018-07-13 09:39] LABS: International Normalized Ratio 2.5
[2018-07-13 10:03] LABS: Prothrombin Time (Protime)PT. 26.7 SECONDS (11.7-14.9)
== END 2018-07-13 10:14 | disposition home or self-care (01) ==
LOC: LAB 09:14
PROVIDERS: Family Provider Internal Medicine; PCP Internal Medicine; Referring Provider Internal Medicine; Visit Provider Internal Medicine
DX: D68.59 Other primary thrombophilia (principal)
CPT/HCPCS: 36415; 85610

== ENCOUNTER 2018-08-18 08:38 | Outpatient (RCR) | payer MEDICARE, SELFPAY ==
[2018-07-23 09:32] VITALS: BMI 32.7
[2018-08-11 10:00] LABS: International Normalized Ratio 1.8; Prothrombin Time (Protime)PT. 21.2 SECONDS (11.7-14.9)
[2018-08-18 09:03] LABS: International Normalized Ratio 2.2; Prothrombin Time (Protime)PT. 24.7 SECONDS (11.7-14.9)
== END 2018-08-25 09:07 | disposition home or self-care (01) ==
LOC: LAB 08:38
PROVIDERS: Family Provider Internal Medicine; PCP Internal Medicine; Referring Provider Internal Medicine; Visit Provider Internal Medicine
DX: D68.59 Other primary thrombophilia (principal)
CPT/HCPCS: 36415; 85610

== ENCOUNTER 2018-09-22 08:15 | Outpatient (RCR) | payer MEDICARE, SELFPAY ==
[2018-07-23 09:32] VITALS: BMI 32.7
[2018-08-25 09:39] LABS: Prothrombin Time (Protime)PT. 22.3 SECONDS (11.7-14.9)
[2018-09-08 10:13] LABS: Prothrombin Time (Protime)PT. 35.2 SECONDS (11.7-14.9)
[2018-09-08 10:36] LABS: International Normalized Ratio 3.5
[2018-09-14 07:51] LABS: International Normalized Ratio 1.9
[2018-09-14 07:59] LABS: Prothrombin Time (Protime)PT. 22.1 SECONDS (11.7-14.9)
[2018-09-22 09:20] LABS: Prothrombin Time (Protime)PT. 23.9 SECONDS (11.7-14.9)
[2018-09-22 09:39] LABS: International Normalized Ratio 2.1
== END 2018-09-22 09:15 | disposition home or self-care (01) ==
LOC: LAB 08:15
PROVIDERS: Family Provider Internal Medicine; PCP Internal Medicine; Referring Provider Internal Medicine; Visit Provider Internal Medicine
DX: D68.59 Other primary thrombophilia (principal)
CPT/HCPCS: 36415; 85610

== ENCOUNTER 2018-10-13 08:20 | Outpatient (RCR) | payer MEDICARE, SELFPAY ==
[2018-07-23 09:32] VITALS: BMI 32.7
[2018-09-30 08:43] LABS: International Normalized Ratio 2.6; Prothrombin Time (Protime)PT. 27.8 SECONDS (11.7-14.9)
[2018-10-13 08:41] LABS: Prothrombin Time (Protime)PT. 24.8 SECONDS (11.7-14.9)
[2018-10-13 08:51] LABS: International Normalized Ratio 2.2
== END 2018-10-13 09:00 | disposition home or self-care (01) ==
LOC: LAB 08:20
PROVIDERS: Family Provider Internal Medicine; PCP Internal Medicine; Referring Provider Internal Medicine; Visit Provider Internal Medicine
DX: D68.59 Other primary thrombophilia (principal)
CPT/HCPCS: 36415; 85610

== ENCOUNTER 2018-11-02 12:03 | Outpatient (RCR) | payer MEDICARE, SELFPAY ==
[2018-07-23 09:32] VITALS: BMI 32.7
[2018-11-02 07:53] VITALS: BMI 31.8
[2018-11-02 14:11] LABS: International Normalized Ratio 2.2; Prothrombin Time (Protime)PT. 24.6 SECONDS (11.7-14.9)
== END 2018-11-24 17:31 | disposition home or self-care (01) ==
LOC: LAB 12:03
PROVIDERS: Family Provider Internal Medicine; PCP Internal Medicine; Referring Provider Internal Medicine; Visit Provider Internal Medicine
DX: D68.59 Other primary thrombophilia (principal)
CPT/HCPCS: 36415; 85610

== ENCOUNTER → 2018-11-24 13:30 | Outpatient (CLI) | payer MEDICARE, SELFPAY ==
[2018-11-02 07:53] VITALS: BMI 31.8
--- NOTE | 2018-11-24 13:32 | ECHOCS_ITS ---
Reason For Study: Dyspnea/SOB Procedure This was a 2D Doppler, Color Flow transthoracic echocardiogram. The study was technically difficult. Contrast injection was performed. Exam performed in department. Left Ventricle Normal LV size. Moderate concentric left ventricular hypertrophy. Left ventricular systolic function is normal. The estimated ejection fraction is 55 %. Stage 1 diastolic dysfunction. No regional wall motion abnormalities noted. Right Ventricle Normal RV size. ICD or pacer leads identified within the right ventricle. Normal systolic function. Atria The left atrium is moderately enlarged. The right atrium is mildly enlarged. Bubble contrast study negative for right to left interatrial shunt. Mitral Valve Normal mitral valve. Tricuspid Valve Normal tricuspid valve. Aortic Valve Trisinus/trileaflet aortic valve. Mild (1+) aortic valve insufficiency. Pulmonic Valve Normal pulmonic valve. Great Vessels Normal aortic root. The pulmonary artery is normal size. Normal inferior vena cava. Pericardium/Pleural No pericardial effusion. Medication 22 gauge I.V. with prn adaptor inserted into right arm. Diluted definity 4ml given slow IV push to enhance endocardial definition. Performed a rapid injection of agitated mix of 9 cc saline and 1cc air to assess for atrial septal defect. MMode/2D Measurements & Calculations LVIDd: 3.7 cm IVSd: 1.5 cm LVOT diam: 2.6 cm LVIDs: 3.0 cm LVPWd: 1.5 cm FS: 20.0 % LVOT area: 5.2 cm2 Ao root diam: 4.8 cm LAV(MOD-bp): 68.6 ml LA A4 area: 23.7 cm2 LAV(MOD-bp) Indexed: 29.4 ml/m2 LAV(MOD-sp2): 60.7 ml LAV(MOD-sp4): 73.8 ml RA A4 area: 21.6 cm2 Time Measurements MV dec time: 0.28 sec Doppler Measurements & Calculations MV E max devyn: 24.9 cm/sec Lat Peak E' Devyn: 6.4 cm/sec Med Peak E' Devyn: 7.7 cm/sec MV A max devyn: 62.1 cm/sec E/E' lat: 3.9 E/E' med: 3.2 MV E/A: 0.40 MV V2 max: 87.2 cm/sec MV P1/2t max devyn: 52.4 cm/sec Ao V2 max: 101.1 cm/sec MV max P.0 mmHg MV P1/2t: 51.9 msec Ao max P.1 mmHg MV V2 mean: 42.3 cm/sec MV dec slope: 296.1 cm/sec2 Ao V2 mean: 71.7 cm/sec MV mean P.88 mmHg Ao mean P.3 mmHg MV V2 VTI: 19.2 cm MVA(P1/2t): 4.2 cm2 Ao V2 VTI: 17.9 cm MVA(VTI): 3.9 cm2 TAWANA(I,D): 4.2 cm2 TAWANA(V,D): 3.7 cm2 AI max devyn: 474.5 cm/sec LV V1 max: 72.1 cm/sec SV(LVOT): 75.6 ml AI max P.1 mmHg LV V1 max P.1 mmHg AI dec slope: 271.1 cm/sec2 LV V1 mean P.3 mmHg AI P1/2t: 512.7 msec LV V1 mean: 54.8 cm/sec LV V1 VTI: 14.5 cm PA V2 max: 55.6 cm/sec TR max devyn: 232.3 cm/sec TR max P.6 mmHg Interpretation Summary Normal LV size. Moderate concentric left ventricular hypertrophy. Left ventricular systolic function is normal. The estimated ejection fraction is 55 %. Stage 1 diastolic dysfunction. The left atrium is moderately enlarged. Contrast injection was performed. Ordering Physician: Low Henry Referring Physician: Low Henry Performed By: Manuel Arias RCS
== END ==
PROVIDERS: Family Provider Internal Medicine; PCP Internal Medicine; Referring Provider Internal Medicine Cardiovascular Disease; Visit Provider Internal Medicine Cardiovascular Disease
DX: R06.09 Other forms of dyspnea (principal); I47.2 Ventricular tachycardia; R06.02 Shortness of breath
CPT/HCPCS: 93306; Q9957; A4216; C8929

== ENCOUNTER 2018-12-15 08:03 | Outpatient (RCR) | payer MEDICARE, SELFPAY ==
[2018-12-01 10:19] LABS: International Normalized Ratio 2.5; Prothrombin Time (Protime)PT. 27.3 SECONDS (11.7-14.9)
[2018-12-15 08:25] LABS: International Normalized Ratio 2.5; Prothrombin Time (Protime)PT. 26.6 SECONDS (11.7-14.9)
== END 2018-12-15 09:00 | disposition home or self-care (01) ==
LOC: LAB 08:03
PROVIDERS: Family Provider Internal Medicine; PCP Internal Medicine; Referring Provider Internal Medicine; Visit Provider Internal Medicine
DX: D68.59 Other primary thrombophilia (principal)
CPT/HCPCS: 36415; 85610

== ENCOUNTER 2019-01-08 16:39 | Emergency (ER) | payer MEDICARE, SELFPAY ==
[2019-01-08 16:41] VITALS: BP 136/96; PULSE 68; RESP 16; TEMP 36.2; O2SAT 94; BMI 32.4
[2019-01-08 18:13] LABS: International Normalized Ratio 2.6; Prothrombin Time (Protime)PT. 28.1 SECONDS (11.7-14.9)
[2019-01-08 18:19] LABS: D-Dimer Quantitative (DVT/PE) < 0.27 FEU/ug/m (0.27-0.49)
[2019-01-08 19:27] VITALS: BP 154/95
--- NOTE | 2019-01-08 19:44 | ED.VISSUMM ---
- ER Visit Summary Date of Service: 01/08/19 Chief Complaint: Concern for blood clot left forearm. History of Present Illness: The patient is a 78 M history of prior DVTs in his arm and leg. History of prior A. fib. Currently on Coumadin. Also has a known pacemaker. Patient states that he noticed some mild swelling in his left forearm and was concerned there could be another blood clot. He denies any trauma. He denies any chest pain or shortness of breath. He denies any shoulder pain. No known trauma. Physical Examination: Older male no acute distress. Vital signs are stable afebrile. HEENT exam unremarkable. Neck nontender. Lungs clear to auscultation bilaterally. Heart regular rhythm no murmur. Abdomen soft nontender. Extremities moves all 4. Neurovascular intact. His left arm I only noticed significant change or may be minimal swelling in the proximal left forearm extensor muscle on the radial side. There is no edema or bruising. His left hand is neurovascular intact with a strong heel pulse. Acupressurist strength and sensation. There is no bony deformity. No red or swollen or tender joints. Normal range of motion to his left shoulder, elbow, wrist and hand. He has normal motor strength in the hand. Otherwise exam unremarkable. Test Results: D-dimer was obtained was negative. His INR is 2.6. Emergency Department Course and Treatment: Repeat exam the patient is doing well at 1943. We went over his test results. Both he and his are comfortable being discharged home. Venous ultrasound at this time is unavailable and unnecessary at this time. Treatment Plan: Follow-up with your doctor if not improving. Return if worse. Continue his current medications. Disposition: Discharge Impression: Left forearm swelling This note was generated with [employer] dictation software. It may contain incorrect words, spelling, and punctuation that were not noted in review of the chart prior to signing ED Disposition - Plan for ED Patient: Referrals: Radha Pritchard MD [Primary Care Provider] -
--- NOTE | 2019-01-08 19:48 | ED.DEP ---
ED Disposition - Plan for ED Patient: Disposition: Home or Assisted Living Referrals: Radha Pritchard MD [Primary Care Provider] - As Needed Additional Instructions: Follow-up with your doctor if not improving or if the swelling gets worse. Continue your current medications.
[2019-01-08 19:56] VITALS: RESP 16
== END 2019-01-08 19:56 | disposition home or self-care (01) ==
PROVIDERS: Emergency Provider Emergency Medicine; Family Provider Internal Medicine; PCP Internal Medicine
DX: M79.89 Other specified soft tissue disorders (principal); I48.91 Unspecified atrial fibrillation; Z79.01 Long term (current) use of anticoagulants; Z95.0 Presence of cardiac pacemaker; Z86.718 Personal history of other venous thrombosis and embolism
CPT/HCPCS: 85379; 85610; 99283; A4216

== ENCOUNTER 2019-01-12 08:16 | Outpatient (RCR) | payer MEDICARE, SELFPAY ==
[2019-01-12 09:06] LABS: International Normalized Ratio 2.5; Prothrombin Time (Protime)PT. 26.8 SECONDS (11.7-14.9)
== END 2019-01-12 09:00 | disposition home or self-care (01) ==
LOC: LAB 08:16
PROVIDERS: Family Provider Internal Medicine; PCP Internal Medicine; Referring Provider Internal Medicine; Visit Provider Internal Medicine
DX: D68.59 Other primary thrombophilia (principal)
CPT/HCPCS: 36415; 85610

== ENCOUNTER 2019-03-01 09:33 | Outpatient (RCR) | payer MEDICARE, SELFPAY ==
[2019-03-01 08:56] VITALS: BMI 32.5
[2019-03-01 10:02] LABS: International Normalized Ratio 2.9; Prothrombin Time (Protime)PT. 30.3 SECONDS (11.7-14.9)
== END 2019-03-01 18:00 | disposition home or self-care (01) ==
LOC: LAB 09:33
PROVIDERS: Family Provider Internal Medicine; PCP Internal Medicine; Referring Provider Internal Medicine; Visit Provider Internal Medicine
DX: D68.59 Other primary thrombophilia (principal); Z51.81 Encounter for therapeutic drug level monitoring
CPT/HCPCS: 36415; 85610

== ENCOUNTER 2019-04-13 08:56 | Outpatient (RCR) | payer MEDICARE, SELFPAY ==
[2019-03-29 09:43] LABS: International Normalized Ratio 3.5
[2019-04-05 08:33] LABS: Prothrombin Time (Protime)PT. 25.1 SECONDS (11.7-14.9)
[2019-04-05 08:45] LABS: International Normalized Ratio 2.3
[2019-04-13 09:16] LABS: International Normalized Ratio 2.2; Prothrombin Time (Protime)PT. 24.7 SECONDS (11.7-14.9)
== END 2019-04-13 18:00 | disposition home or self-care (01) ==
LOC: LAB 08:56
PROVIDERS: Family Provider Internal Medicine; PCP Internal Medicine; Referring Provider Internal Medicine; Visit Provider Internal Medicine
DX: D68.59 Other primary thrombophilia (principal)
CPT/HCPCS: 36415; 85610

== ENCOUNTER 2019-05-18 08:03 | Outpatient (RCR) | payer MEDICARE, SELFPAY ==
[2019-04-28 11:10] LABS: International Normalized Ratio 2.6
[2019-04-28 11:25] LABS: Prothrombin Time (Protime)PT. 27.5 SECONDS (11.7-14.9)
[2019-05-18 08:39] LABS: International Normalized Ratio 2.5; Prothrombin Time (Protime)PT. 26.8 SECONDS (11.7-14.9)
== END 2019-05-18 18:00 | disposition home or self-care (01) ==
LOC: LAB 08:03
PROVIDERS: Family Provider Internal Medicine; PCP Internal Medicine; Referring Provider Internal Medicine; Visit Provider Internal Medicine
DX: I44.2 Atrioventricular block, complete (principal); Z79.01 Long term (current) use of anticoagulants
CPT/HCPCS: 36415; 85610

== ENCOUNTER 2019-06-15 08:32 | Outpatient (RCR) | payer MEDICARE, SELFPAY ==
[2019-06-15 09:12] LABS: International Normalized Ratio 2.4
== END 2019-06-15 18:00 | disposition home or self-care (01) ==
LOC: LAB 08:32
PROVIDERS: Family Provider Internal Medicine; PCP Internal Medicine; Referring Provider Internal Medicine; Visit Provider Internal Medicine
DX: I44.2 Atrioventricular block, complete (principal); Z79.01 Long term (current) use of anticoagulants
CPT/HCPCS: 36415; 85610

== ENCOUNTER 2019-07-29 06:03 | Outpatient (RCR) | payer MEDICARE, SELFPAY ==
[2019-07-29 06:32] LABS: International Normalized Ratio 2.4; Prothrombin Time (Protime)PT. 26.5 SECONDS (11.7-14.9)
== END 2019-08-25 18:00 | disposition home or self-care (01) ==
LOC: LAB 06:03
PROVIDERS: Family Provider Internal Medicine; PCP Internal Medicine; Referring Provider Internal Medicine; Visit Provider Internal Medicine
DX: I44.2 Atrioventricular block, complete (principal); Z79.01 Long term (current) use of anticoagulants
CPT/HCPCS: 36415; 85610

== ENCOUNTER → 2019-09-12 08:16 | Outpatient (CLI) | payer MEDICARE, SELFPAY ==
[2019-09-05 09:35] VITALS: BMI 32.5
--- NOTE | 2019-09-12 08:17 | CT_ITS ---
STUDY: CT PELVIS WITH CONTRAST REASON FOR EXAM: Male, 79 years old. RECURRENT LT INGUINAL HERNIA, PREV REPAIR, UMBILICAL HERNIA REPAIR, HYDROCELE REPAIR, HTN, PACEMAKER RADIATION DOSAGE (If Supplied By Facility): CTDIvol = ( 39.14 ) mGy, DLP = ( 1711.24 ) mGycm TECHNIQUE: Transaxial imaging of the pelvis was performed without oral contrast. Oral and amp; IV Readi-CAT and amp; 100mL Isovue-300 was administered intravenously. Individualized dose optimization techniques were used for this CT. COMPARISON: None. FINDINGS: Normal urinary bladder. Bilateral renal cysts noted the largest is in the right kidney measures 14 cm. There is a heterogeneous lesion in the lower part of the right kidney measures 2.2 cm has nonspecific appearance for which further evaluation by MRI may be warranted to exclude a neoplasm. Normal visualized small intestine. There are multiple colonic diverticula of the sigmoid colon consistent with chronic diverticulosis. There is no pelvic fluid. There is no pelvic lymphadenopathy or mass lesion. Normal visualized pelvic arteries. There is an 8 cm left inguinal hernia containing fat. There is a 3.5 cm right inguinal hernia containing fat. Normal osseous structures. CT/Pelvis WITH IV Contrast IMPRESSION: There is an 8 cm left inguinal hernia containing fat. There is a 3.5 cm right inguinal hernia containing fat. There is a heterogeneous lesion in the lower part of the right kidney , axial image #9, measures 2.2 cm has nonspecific appearance for which further evaluation by MRI may be warranted to exclude a neoplasm. Electronically Signed: Fatmata Kerns, at 10:24 EDT Tel , Service support ,
[2019-09-12 08:31] LABS: CREATININE FINGERSTICK 1.1 mg/dL (0.70-1.30); EGFR FINGERSTICK > 60.0000 mL/min (>60)
== END ==
PROVIDERS: PCP Internal Medicine; Referring Provider Surgery; Visit Provider Surgery
DX: K40.91 Unilateral inguinal hernia, without obstruction or gangrene, recurrent (principal)
CPT/HCPCS: 72193; Q9967

== ENCOUNTER 2019-10-20 05:48 | Day surgery (SDC) | payer MEDICARE, SELFPAY ==
[2019-09-29 13:50] VITALS: BMI 32.5
--- NOTE | 2019-10-05 08:05 | HP_ITS ---
Intake Vital Signs 09/29/19 BMI 32.5 09/29/19 Height 6 ft 1 in 09/29/19 Weight: 245 lb 09/29/19 BMI 32.3 09/29/19 BP 133/78 H 09/29/19 Blood Pressure Location Rt brachial 09/29/19 Position Sitting 09/29/19 Respiration 18 09/29/19 Pulse 76 09/29/19 Pulse Source Monitor 09/29/19 Temp 97.5 F L 09/29/19 Temp Source Temporal 09/29/19 Pulse Oximetry (%) 94 09/29/19 Oxygen Delivery Method room air Intake Visit Reasons: Discuss Surgery Chief Complaint: discuss surgery Property Assistant Required: No Is patient in pain?: No Allergies amlodipine [From [facility][1]] Allergy (Verified 09/29/19 13:50) Unknown trazodone Allergy (Verified 09/29/19 13:50) Unknown Medications Finasteride [Proscar] 5 mg PO DAILY 01/14/17 [History Confirmed 09/29/19] Hydrocodone/Acetaminophen [[place] 5-325 Tablet] 1 ea PO Q6H PRN PRN 01/14/17 [History Confirmed 09/29/19] Multivitamins,Therapeutic [Multivitamin] 1 tab PO DAILY 01/14/17 [History Confirmed 09/29/19] Warfarin Sodium [Coumadin] 10 mg PO MOWETHSA 01/14/17 [History Confirmed 09/29/19] tamsulosin 0.4 mg capsule 0.4 mg PO DAILY cap 05/14/17 [History Confirmed 09/29/19] losartan 100 mg-hydrochlorothiazide 25 mg tablet 1 tab PO QDAY 08/05/17 [History Confirmed 09/29/19] zolpidem 10 mg tablet 10 mg PO HS PRN tab 08/05/17 [History Confirmed 09/29/19] omeprazole 40 mg capsule,delayed release 40 mg PO DAILY 11/10/17 [History Confirmed 09/29/19] Warfarin Sodium [Coumadin] 5 mg PO SUTUFR 04/18/18 [History Confirmed 09/29/19] atorvastatin 40 mg tablet 40 mg PO QHS #90 tab 11/02/18 [History Confirmed 09/29/19] sertraline 50 mg tablet 50 mg PO QHS #90 tab 11/02/18 [History Confirmed 09/29/19] PFSH Medical History Right bundle branch block (RBBB) (Chronic) NSVT (nonsustained ventricular tachycardia) (Resolved 02/2017) History of pulmonary embolism (Resolved) Essential (primary) hypertension (Chronic) Sick sinus syndrome (Chronic) Hyperlipidemia (Chronic) PEYMAN (obstructive sleep apnea) (Chronic) Complete heart block (Chronic) Breakdown (mechanical) of cardiac electrode, subsequent encounter (Chronic) DVT (deep venous thrombosis) (Chronic) Diverticulitis (Chronic) Hx of rheumatic fever (Chronic) Hypercoagulable state (Chronic) Pulmonary embolism (Chronic) Nonrheumatic aortic (valve) insufficiency (Inactive) Nonrheumatic mitral (valve) insufficiency (Inactive) Nonrheumatic tricuspid (valve) insufficiency (Inactive) Surgical History Presence of permanent cardiac pacemaker (Chronic 01/2017) H/O shoulder replacement (Chronic) History of bilateral hip replacements (Chronic) History of colonoscopy (Resolved) History of detached retina repair (Resolved) History of hydrocelectomy (Resolved) History of left inguinal hernia repair (Resolved) History of prostate biopsy (Resolved) Hx of total knee replacement (Resolved ~05/15/12) cystourethroscopy (Resolved ~2003) Family History Father Alcoholism Grandmother Enlarged heart Social History (Updated 10/05/19 @ 08:[address] Ponce Ruano MD) Smoking Status: Never smoker alcohol intake: never substance use type: does not use caffeine: Yes Type: coffee Number of servings: 3, tea what type of physical activity do you participate in: other details: [employer] frequency: 3-4 times per week duration: 30-45 minutes/day seatbelt use: always do you feel safe at home: Yes HPI HPI HPI: MARTIN AUGUSTINE, is a 79 M who presents to the office today for HPI HPI Surgical H&P: Yes HPI: MARTIN AUGUSTINE, is a 79 M who presents to the office today for Follow-up after imaging and consultation with urology. The patient has no changes since his last visit. He still has complaint of swelling in his scrotum. ROS General General: No weight change or fatigue Cardio Cardiovascular: No murmur, pacemaker, heart disease, atrial fibrillation, high blood pressure, heart attack, heart stent, palpitations, shortness of breat with exertion or chest pain Psych Psychiatric: No depression or anxiety Resp Respiratory: No shortness of breath, No sleep apnea, No cough, No COPD, No asthma, No emphysema, No wheezing Gastro Gastrointestinal: No abdominal pain, No nausea or vomiting, No diarrhea, No constipation, No blood in stool, No acid reflux, No hemorrhoids, No ulcers, No gallbladder problem, No black,tarry stools Additional Details: Left groin pain Savage Hematologic: No blood thinners Exam Const General: cooperative Orientation: alert, oriented x3 Resp Effort & Inspection: normal respiratory effort Auscultation: clear to auscultation bilaterally Cardio Rate: regular rate Rhythm: regular rhythm Heart Sounds: no murmurs GI Inspection: non-distended Palpation: soft, hernia indirect inguinal, nontender Assessment & Plan Problems 1. Bilateral recurrent inguinal hernia without obstruction or gangrene K40.21 Plan The patient has bilateral recurrent inguinal hernias containing retroperitoneal structures. He also has a very large renal cyst on the right side. I had him follow-up with urology and he ensures that the patient that there is nothing to do at this time due for the cyst. I discussed that the cyst is near the inguinal hernia and may preclude laparoscopic surgery. I did discuss proceeding with robotic assisted laparoscopic inguinal hernia surgery. I did discuss converting to open procedure if I was unable to reduce contents or if the cyst got in the way. The patient understands and wants to proceed. I discussed the risks of bleeding, infection, injury retroperitoneal structures or rupturing the cyst, recurrence of hernia, chronic groin pain or spermatic cord injury. Plan to proceed with surgery. Lovenox bridging will be performed to get him off of his Coumadin for surgery. We discussed the current risks associated with COVID-19. While it is understood that there is a community spread of COVID-19, the risk of lois COVID-19 while at [facility] ([facility]) is very low; however, the risk cannot be completely mitigated because of the community spread of the disease. We discussed in detail the risk of exposure to and/or potential harm posed by the COVID-19 virus with having a surgery/procedure at this time versus the risk of delaying the surgery/procedure. It is not possible to know either the risk of delaying the surgery or procedure or chance of getting an infection with perfect accuracy, but a joint decision was made to proceed at this time with the scheduled surgery/procedure as indicated on the consent form. Patient was notified that we will need to comply with any screening or testing [facility] wishes to perform or that surgery may be delayed for any positive results. Ponce Ruano MD Pager: [facility] [address] [place] [address], [address] [place] [address] Office: Coding Level of Care Code Off vis,est,level 3 Diagnoses Bilateral recurrent inguinal hernia without obstruction or gangrene K40.21 ??Obstruction and gangrene presence: without obstruction or gangrene 10/05/19 0806 <Electronically signed by Ponce martinez MD> Date _ Ponce Ruano MD I have re-examined the patient. There are no clinical changes since date of exam.
--- NOTE | 2019-10-14 10:25 | EKG12_ITS ---
Test Reason : PRE OP Blood Pressure : / mmHG Vent. Rate : 077 BPM Atrial Rate : 076 BPM P-R Int : 298 ms QRS Dur : 144 ms QT Int : 416 ms P-R-T Axes : 000 -81 -33 degrees QTc Int : 470 ms Atrial-paced rhythm with prolonged AV conduction Left axis deviation Right bundle branch block Inferior infarct , age undetermined Abnormal ECG Confirmed by IVÁN JACK, CORINNE ([id number]), scientific publications editor PEG SLAUGHTER ([id number]) on 10/17/2019 9:48:38 AM Referred By: Ponce Ruano Confirmed By:ROLLY MINOR MD
[2019-10-14 10:34] LABS: Hematocrit 42.1 % (40-54); Hemoglobin 13.9 g/dL (13.0-16.5); Mean Corpuscular Hgb 30.4 pg (27.0-32.0); Mean Corpuscular Volume 92.1 fL (80-94); Mean Platelet Vol. 9.1 fl (6.2-12.0); Platelet Count 186 K/mm3 (150-450); RBC Distribution Width CV 13.9 % (11.6-14.6); RBC Distribution Width SD 47.3 fl (35.1-43.9); Red Blood Count 4.57 M/mm3 (4.6-6.2); White Blood Count 5.1 K/mm3 (4.4-11.0)
[2019-10-14 10:55] LABS: Anion Gap 6 (5-15); BUN 19 mg/dL (7-18); BUN/Creat Ratio 16.5 RATIO (10-20); Calcium,Total 9.2 mg/dL (8.5-10.1); Chloride 109 mmol/L (98-107); Creatinine, Serum 1.15 mg/dL (0.70-1.30); EST Glomerular Filtration Rate 65 mL/min (>60); Est Glom Filt Rate - Afr Amer 79 mL/min (>60); Glucose 155 mg/dL (74-106); Potassium 3.8 mmol/L (3.5-5.1); Sodium Level 141 mmol/L (136-145)
[2019-10-20] VITALS (9 sets, daily range): BP systolic 97–128; BP diastolic 62–86; PULSE 60–95; RESP 16; TEMP 36.1–36.6; O2SAT 87–100; BMI 31.2
[2019-10-20] MEDS: Lactated Ringers 1,000 ML 100 ML IV ×2 (06:54→10:19)
[2019-10-20 07:20] LABS: Prothrombin Time Fingerstick 12.2 SEC (11.9-14.4)
[2019-10-20] MEDS: Cefazolin 2 GM in 0.9% Normal Saline 100 ML IV (07:34)
[2019-10-20] MEDS: Bupivacaine Mpf 0.5% 30 ML VIAL (09:43)
--- NOTE | 2019-10-20 09:55 | PCM.DC.HER ---
Discharge Diet: Light diet - advance as tolerated Discharge Activity: Return to Normal Activity, May Not Drive - for 2-3 days or while taking narcotic pain meds., May Shower - with the bandage in place 1-2 days after surgery. Lifting Restrictions: 20 pounds for 6 weeks. Additional Activity Instructions:: Climbing stairs is fine, walking is encouraged. Sitting in bed may be uncomfortable. Sitting up using your lateral muscles (sitting up sideways) is usually more comfortable. Do not drive, work heavy equipment of sign legal documents for 24 hours. If your hernia repair was an ingunial repair, you may have scrotal swelling, an ice pack and/or athletic support can provide more comfort. Pain medications may cause nausea, you should typically eat light foods as you take your pain medications. Pain medications may also cause constipation. If you have difficulty with this, discuss with your doctor. Call your doctor if your incision/area has: Continuous Slow Oozing, Sudden Increased Bleeding, Increased Pain/ Swelling, Increased Redness, Foul Smelling Discharge Call your doctor if you observe: Fever of 101 or Higher Suture Line Care: Avoid Pulling/Pushing, Avoid Pinching/Bending Change Dressing in (Days):: 3 - Leave steri-strips for 1 week. May protect with a guaze bandaid. Cleanse incision/area with: Keep Dressing Clean & Dry Allergies/Adverse Reactions: Allergies amlodipine [From [facility]] Allergy (Verified 10/12/19 14:38) Unknown trazodone Allergy (Verified 10/12/19 14:38) Unknown Medications to take at Discharge Finasteride [Proscar] 5 mg PO QHS 01/14/17 Hydrocodone/Acetaminophen [[place]acon 5-325 Tablet] 1 ea PO Q6H PRN PRN 01/14/17 Multivitamins,Therapeutic [Multivitamin] 1 tab PO DAILY 01/14/17 Warfarin Sodium [Coumadin] 10 mg PO SUTUTHSA 01/14/17 tamsulosin 0.4 mg capsule 0.4 mg PO DAILY cap 05/14/17 losartan 100 mg-hydrochlorothiazide 25 mg tablet 1 tab PO QDAY 08/05/17 zolpidem 10 mg tablet 10 mg PO HS PRN tab 08/05/17 omeprazole 40 mg capsule,delayed release 40 mg PO DAILY 11/10/17 Warfarin Sodium [Coumadin] 5 mg PO MOWEFR 04/18/18 atorvastatin 40 mg tablet 20 mg PO QHS #90 tab 11/02/18 Aspirin/Acetaminophen/Caffeine [Excedrin Extra Strength Caplet] 1 ea PO PRN PRN 10/12/19 Docusate Sodium [Colace] 100 mg PO BID #20 cap 10/20/19 Oxycodone HCl/Acetaminophen [Percocet 5-325 mg Tablet] 1 - 2 tab PO Q6H PRN 5 Days #30 tablet 10/20/19 The following prescriptions were given: Docusate Sodium [Colace] 100 mg PO BID #20 cap Transmission Status: Pending to [facility] Oxycodone HCl/Acetaminophen [Percocet 5-325 mg Tablet] 1 - 2 tab PO Q6H PRN 5 Days #30 tablet PRN Reason: Pain Score 4-10/10 Transmission Status: Sent to [facility] Primary Care Physician: Radha Pritchard MD [Primary Care Provider] - Test Results: Test results from this visit will be discussed in further detail at your follow-up appointment, if applicable. Please Follow Up With: Ponce Ruano MD When: Please call to schedule 2 week follow up appointment. [phone]
[2019-10-20] MEDS: Acetaminophen 325 MG Tablet 650 MG PO (11:52)
[2019-10-20] MEDS: oxyCODONE 5 MG Tablet 10 MG PO (11:52)
--- NOTE | 2019-10-20 12:33 | PCM.OPRPT ---
Problem List (1) Bilateral inguinal hernia, without obstruction or gangrene, recurrent Status: Acute Report of Operation Date of Procedure: 10/20/19 Pre-Operative Diagnosis: Bilateral recurrent inguinal hernias Post-Operative Diagnosis: Same Surgery/Procedure Performed:: Robotic assisted laparoscopic bilateral recurrent inguinal hernia repair with mesh Description of Procedure: Patient was brought back the operating room and general anesthesia was induced. Shultz catheter was placed. The abdomen and scrotum were prepped and draped in the usual sterile fashion. Midline incision was created above the umbilicus and deepened to the fascia. The fascia was elevated and incised and the balloon port was placed into the abdomen. The abdomen was insufflated to 15 mmHg. Patient was placed in Trendelenburg position and a right lateral and left lateral port were placed under direct visualization. The robot was then docked. Attention was first paid to the more symptomatic side which was the left. A score was made in the peritoneum and this was deepened to the area inguinal area. The patient had retroperitoneal contents herniating through the indirect hernia space. This was reduced into the abdomen and then tucked back into the retroperitoneum. A piece of pro-train control technician was placed into the inguinal region and secured using the laborer drying department on the backside of the mesh to the inferior portion of the inguinal canal. I was then tacked anteriorly and medially using 3-0 Vicryl suture. This completely obliterated the potential space that the retroperitoneal fat was in. The peritoneum was then reapproximated using a running 3-0V lock suture and the small holes in the peritoneum were closed with interrupted 3-0 Vicryl sutures. The mesh was completely covered at the end the case as were the retroperitoneal contents. Attention was then paid to the right side which had previously been repaired laparoscopically. An incision was made in the peritoneum and this was deepened to the prior mesh. The peritoneum was dissected off of the prior mesh and the dissection was carried inferiorly. The retroperitoneal contents of this hernia were also reduced into the abdomen and replaced into the retroperitoneum. A piece of pro-train control technician mesh was placed into this inguinal canal covering the opening and the retroperitoneal fat was included in the suture line for the peritoneum to buttress the suture line and keep the fat from re-herniating while the healing was taking place. This was done with a running 3-0V lock suture. This completely covered the hernia space. Next the ports were removed and the robot was undocked. The midline fascia was closed with a [id number] 0 Vicryl suture. All the incisions were anesthetized and closed with interrupted 4-0 Monocryl suture as well as Steri-Strips and bandages. Scrotum was checked at the end the case and included both testicles. Patient was awoken and Shultz was removed. Patient tolerated the procedure well. Patient was brought to PACU in stable condition. Grafts/Implants Used: Pro-train control technician mesh bilaterally - Admit VTE Documentation VTE Mechan Device Prophylaxis: SCD's
== END 2019-10-20 12:44 | disposition home or self-care (01) ==
LOC: SDC 05:49 → AC 05:49
PROVIDERS: Anesthesiology; PCP Internal Medicine; Referring Provider Surgery; Visit Provider Surgery
PROC: (CPT 49651; principal; 2019-10-20 07:10)
DX: K40.21 Bilateral inguinal hernia, without obstruction or gangrene, recurrent (principal); I45.10 Unspecified right bundle-branch block; N28.1 Cyst of kidney, acquired; I10 Essential (primary) hypertension; G47.33 Obstructive sleep apnea (adult) (pediatric); E78.5 Hyperlipidemia, unspecified; Z95.0 Presence of cardiac pacemaker; Z79.01 Long term (current) use of anticoagulants; Z88.8 Allergy status to other drugs, medicaments and biological substances; K21.9 Gastro-esophageal reflux disease without esophagitis; Z86.711 Personal history of pulmonary embolism; Z86.718 Personal history of other venous thrombosis and embolism
CPT/HCPCS: 00840; 49651; 36415; 36416; 80048; 85027; 85610; 87635; 93005; G2023; J7120; J2405; U0003

== ENCOUNTER 2019-10-25 07:49 | Outpatient (RCR) | payer MEDICARE, SELFPAY ==
[2019-09-29 13:50] VITALS: BMI 32.5
[2019-10-19 08:54] LABS: International Normalized Ratio 1.3; Prothrombin Time (Protime)PT. 15.2 SECONDS (11.7-14.9)
[2019-10-25 08:21] LABS: International Normalized Ratio 1.3; Prothrombin Time (Protime)PT. 15.5 SECONDS (11.7-14.9)
== END 2019-10-25 18:00 | disposition home or self-care (01) ==
LOC: LAB 07:49
PROVIDERS: Family Provider Internal Medicine; PCP Internal Medicine; Referring Provider Internal Medicine; Visit Provider Internal Medicine
DX: Z79.01 Long term (current) use of anticoagulants (principal); I44.2 Atrioventricular block, complete
CPT/HCPCS: 36415; 85610

== ENCOUNTER 2019-11-25 07:40 | Outpatient (RCR) | payer MEDICARE, SELFPAY ==
[2019-10-20 06:50] VITALS: BMI 31.2
[2019-11-01 07:58] LABS: International Normalized Ratio 1.6; Prothrombin Time (Protime)PT. 18.1 SECONDS (11.7-14.9)
[2019-11-04 08:33] LABS: International Normalized Ratio 1.7
[2019-11-07 08:09] LABS: International Normalized Ratio 2.3
[2019-11-10 08:25] LABS: Prothrombin Time (Protime)PT. 21.7 SECONDS (11.7-14.9)
[2019-11-10 09:06] LABS: International Normalized Ratio 1.9
[2019-11-18 09:09] LABS: International Normalized Ratio 2.2
[2019-11-18 09:17] LABS: Prothrombin Time (Protime)PT. 24.3 SECONDS (11.7-14.9)
[2019-11-22 07:45] LABS: Prothrombin Time (Protime)PT. 27.7 SECONDS (11.7-14.9)
[2019-11-22 07:55] LABS: International Normalized Ratio 2.6
[2019-11-25 08:06] LABS: International Normalized Ratio 2.7
[2019-11-25 08:41] LABS: Prothrombin Time (Protime)PT. 28.3 SECONDS (11.7-14.9)
== END 2019-11-25 18:00 | disposition home or self-care (01) ==
LOC: LAB 07:40
PROVIDERS: Family Provider Internal Medicine; PCP Internal Medicine; Referring Provider Internal Medicine; Visit Provider Internal Medicine
DX: I44.2 Atrioventricular block, complete (principal); Z79.01 Long term (current) use of anticoagulants
CPT/HCPCS: 36415; 85610

== ENCOUNTER → 2019-11-30 07:57 | Outpatient (CLI) | payer MEDICARE, SELFPAY ==
[2019-11-23 09:25] VITALS: BMI 30.9
--- NOTE | 2019-11-30 07:58 | CT_ITS ---
STUDY: CT PELVIS WITHOUT CONTRAST REASON FOR EXAM: Male, 79 years old. PELVIS MASS RADIATION DOSAGE (If Supplied By Facility): CTDIvol = ( 14.74 ) mGy, DLP = ( 908.98 ) mGycm TECHNIQUE: Transaxial imaging of the pelvis was performed with oral contrast, and without intravenous administration of contrast material. Individualized dose optimization techniques were used for this CT. COMPARISON: Comparison is made with prior study dated 09/12/2019. FINDINGS: Stable bilateral renal cysts. The largest cyst is in the lower pole of the right kidney. This measures 10.9 cm x 8.1 cm. Normal urinary bladder. The prostate is enlarged. Calcifications are seen within it. There is evidence of a bilateral hydroceles worse in the left hemiscrotum. There is evidence of a moderate-sized left scrotal hernia. At this time, a bowel loop is seen within it. Normal visualized small intestine. There are multiple colonic diverticula of the sigmoid colon consistent with chronic diverticulosis. There is no pelvic fluid. There is no pelvic mass lesion or lymphadenopathy. There is diffuse atherosclerotic calcification of the pelvic arteries. Normal abdominal wall. There are diffuse degenerative changes of the visualized lumbar spine. CT/Pelvis without IV Contrast IMPRESSION: Moderate size left inguinal hernia extending into the left hemiscrotum containing a nondilated small bowel loop. The remainder the examination is unchanged. Electronically Signed: Sam Naik, at 9:48 EDT , Service support ,
== END ==
PROVIDERS: PCP Internal Medicine; Referring Provider Surgery; Visit Provider Surgery
DX: R19.00 Intra-abdominal and pelvic swelling, mass and lump, unspecified site (principal)
CPT/HCPCS: 72192

== ENCOUNTER 2019-12-22 10:25 | Outpatient (RCR) | payer MEDICARE, SELFPAY ==
[2019-11-23 09:25] VITALS: BMI 30.9
[2019-12-02 08:23] LABS: International Normalized Ratio 2.8
[2019-12-02 08:52] LABS: Prothrombin Time (Protime)PT. 29.3 SECONDS (11.7-14.9)
[2019-12-22 10:52] LABS: International Normalized Ratio 3.2; Prothrombin Time (Protime)PT. 32.8 SECONDS (11.7-14.9)
== END 2019-12-26 18:00 | disposition home or self-care (01) ==
LOC: LAB 10:25
PROVIDERS: Family Provider Internal Medicine; PCP Internal Medicine; Referring Provider Internal Medicine; Visit Provider Internal Medicine
DX: I44.2 Atrioventricular block, complete (principal); Z79.01 Long term (current) use of anticoagulants
CPT/HCPCS: 36415; 85610

== ENCOUNTER 2020-01-24 08:32 | Outpatient (RCR) | payer MEDICARE, SELFPAY ==
[2019-11-23 09:25] VITALS: BMI 30.9
[2019-12-29 09:08] LABS: International Normalized Ratio 2.7; Prothrombin Time (Protime)PT. 28.3 SECONDS (11.7-14.9)
[2020-01-05 08:42] LABS: International Normalized Ratio 2.7; Prothrombin Time (Protime)PT. 28.6 SECONDS (11.7-14.9)
[2020-01-17 09:34] LABS: International Normalized Ratio 3.2; Prothrombin Time (Protime)PT. 32.5 SECONDS (11.7-14.9)
[2020-01-24 09:54] LABS: International Normalized Ratio 2.6; Prothrombin Time (Protime)PT. 27.3 SECONDS (11.7-14.9)
== END 2020-01-24 18:00 | disposition home or self-care (01) ==
LOC: LAB 08:32
PROVIDERS: Family Provider Internal Medicine; PCP Internal Medicine; Referring Provider Internal Medicine; Visit Provider Internal Medicine
DX: I44.2 Atrioventricular block, complete (principal); Z79.01 Long term (current) use of anticoagulants
CPT/HCPCS: 36415; 85610

== ENCOUNTER 2020-02-14 08:39 | Outpatient (RCR) | payer MEDICARE, SELFPAY ==
[2019-11-23 09:25] VITALS: BMI 30.9
[2020-01-31 09:22] LABS: International Normalized Ratio 2.5; Prothrombin Time (Protime)PT. 26.4 SECONDS (11.7-14.9)
[2020-02-14 09:03] LABS: International Normalized Ratio 2.3; Prothrombin Time (Protime)PT. 24.4 SECONDS (11.7-14.9)
== END 2020-02-14 18:00 | disposition home or self-care (01) ==
LOC: LAB 08:39
PROVIDERS: Family Provider Internal Medicine; PCP Internal Medicine; Referring Provider Internal Medicine; Visit Provider Internal Medicine
DX: I44.2 Atrioventricular block, complete (principal); Z79.01 Long term (current) use of anticoagulants
CPT/HCPCS: 36415; 85610

== ENCOUNTER → 2020-02-22 08:43 | Outpatient (CLI) | payer MEDICARE, SELFPAY ==
[2019-11-23 09:25] VITALS: BMI 30.9
[2020-02-22 11:30] LABS: ALB/GLOB Ratio 1.1 RATIO (0.9-2.4); AST(SGOT) 22 U/L (15-37); Alanine Aminotransfer ALT/SGPT 25 U/L (16-61); Albumin, Serum 3.4 g/dL (3.2-5.0); Alkaline Phosphatase 74 U/L (45-117); Anion Gap 5 (5-15); BUN 26 mg/dL (7-18); BUN/Creat Ratio 23.9 RATIO (10-20); Chloride 109 mmol/L (98-107); Creatinine, Serum 1.09 mg/dL (0.70-1.30); EST Glomerular Filtration Rate 69 mL/min (>60); Est Glom Filt Rate - Afr Amer 84 mL/min (>60); Globulin 3.1 g/dL (2.2-4.2); Glucose 108 mg/dL (74-106); Potassium 3.9 mmol/L (3.5-5.1); Protein, Total 6.5 g/dL (6.4-8.2); Sodium Level 140 mmol/L (136-145)
== END ==
PROVIDERS: PCP Internal Medicine; Referring Provider Internal Medicine; Visit Provider Internal Medicine
DX: N28.9 Disorder of kidney and ureter, unspecified (principal)
CPT/HCPCS: 36415; 80053

== ENCOUNTER 2020-03-14 07:37 | Outpatient (RCR) | payer MEDICARE, SELFPAY ==
[2019-11-23 09:25] VITALS: BMI 30.9
[2020-02-29 09:10] VITALS: BMI 30.7
[2020-03-14 08:05] LABS: International Normalized Ratio 2.8; Prothrombin Time (Protime)PT. 29.1 SECONDS (11.7-14.9)
== END 2020-03-14 18:00 | disposition home or self-care (01) ==
LOC: LAB 07:37
PROVIDERS: Family Provider Internal Medicine; PCP Internal Medicine; Referring Provider Internal Medicine; Visit Provider Internal Medicine
DX: I44.2 Atrioventricular block, complete (principal); Z79.01 Long term (current) use of anticoagulants
CPT/HCPCS: 36415; 85610

== ENCOUNTER 2020-04-11 07:44 | Outpatient (RCR) | payer MEDICARE, SELFPAY ==
[2020-02-29 09:10] VITALS: BMI 30.7
[2020-04-11 08:19] LABS: International Normalized Ratio 2.7; Prothrombin Time (Protime)PT. 28.1 SECONDS (11.7-14.9)
== END 2020-04-11 18:00 | disposition home or self-care (01) ==
LOC: LAB 07:44
PROVIDERS: Family Provider Internal Medicine; PCP Internal Medicine; Referring Provider Internal Medicine; Visit Provider Internal Medicine
DX: Z79.01 Long term (current) use of anticoagulants (principal)
CPT/HCPCS: 36415; 85610

== ENCOUNTER 2020-05-08 07:38 | Outpatient (RCR) | payer MEDICARE, SELFPAY ==
[2020-02-29 09:10] VITALS: BMI 30.7
[2020-05-08 08:08] LABS: International Normalized Ratio 2.6; Prothrombin Time (Protime)PT. 27.1 SECONDS (11.7-14.9)
== END 2020-05-08 18:00 | disposition home or self-care (01) ==
LOC: LAB 07:38
PROVIDERS: Family Provider Internal Medicine; PCP Internal Medicine; Referring Provider Internal Medicine; Visit Provider Internal Medicine
DX: Z79.01 Long term (current) use of anticoagulants (principal)
CPT/HCPCS: 36415; 85610

== ENCOUNTER 2020-06-06 08:18 | Outpatient (RCR) | payer MEDICARE, SELFPAY ==
[2020-02-29 09:10] VITALS: BMI 30.7
[2020-06-06 09:07] LABS: International Normalized Ratio 2.7; Prothrombin Time (Protime)PT. 28.3 SECONDS (11.7-14.9)
== END 2020-06-06 18:00 | disposition home or self-care (01) ==
LOC: LAB 08:18
PROVIDERS: Family Provider Internal Medicine; PCP Internal Medicine; Referring Provider Internal Medicine; Visit Provider Internal Medicine
DX: Z79.01 Long term (current) use of anticoagulants (principal)
CPT/HCPCS: 36415; 85610

== ENCOUNTER 2020-07-04 08:16 | Outpatient (RCR) | payer MEDICARE, SELFPAY ==
[2020-02-29 09:10] VITALS: BMI 30.7
[2020-07-04 08:41] LABS: International Normalized Ratio 2.7; Prothrombin Time (Protime)PT. 28.1 SECONDS (11.7-14.9)
== END 2020-07-04 18:00 | disposition home or self-care (01) ==
LOC: LAB 08:16
PROVIDERS: Family Provider Internal Medicine; PCP Internal Medicine; Referring Provider Internal Medicine; Visit Provider Internal Medicine
DX: Z79.01 Long term (current) use of anticoagulants (principal)
CPT/HCPCS: 36415; 85610

== ENCOUNTER 2020-08-01 08:15 | Outpatient (RCR) | payer MEDICARE, SELFPAY ==
[2020-02-29 09:10] VITALS: BMI 30.7
[2020-08-01 09:17] LABS: Prothrombin Time (Protime)PT. 28.9 SECONDS (11.7-14.9)
[2020-08-01 09:28] LABS: International Normalized Ratio 2.8
== END 2020-08-01 18:00 | disposition home or self-care (01) ==
LOC: LAB 08:15
PROVIDERS: Family Provider Internal Medicine; PCP Internal Medicine; Referring Provider Internal Medicine; Visit Provider Internal Medicine
DX: Z79.01 Long term (current) use of anticoagulants (principal)
CPT/HCPCS: 36415; 85610

== ENCOUNTER 2020-08-29 07:39 | Outpatient (RCR) | payer MEDICARE, SELFPAY ==
[2020-02-29 09:10] VITALS: BMI 30.7
[2020-08-29 08:21] LABS: International Normalized Ratio 2.7
== END 2020-08-29 18:00 | disposition home or self-care (01) ==
LOC: LAB 07:39
PROVIDERS: Family Provider Internal Medicine; PCP Internal Medicine; Referring Provider Internal Medicine; Visit Provider Internal Medicine
DX: Z79.01 Long term (current) use of anticoagulants (principal)
CPT/HCPCS: 36415; 85610

== ENCOUNTER → 2020-09-04 13:19 | Outpatient (CLI) | payer MEDICARE, SELFPAY ==
[2020-02-29 09:10] VITALS: BMI 30.7
--- NOTE | 2020-09-04 13:30 | CT_ITS ---
STUDY: CT ABDOMEN WITH AND WITHOUT CONTRAST REASON FOR EXAM: Male, 80 years old. KIDNEY NEOPLASM. Prior hernia repairs. RADIATION DOSAGE (If Supplied By Facility): CTDIvol = ( 27.57 ) mGy, DLP = ( 3928.24 ) mGycm TECHNIQUE: Transaxial images were obtained pre and post I.V. administration of IV 100mL Isovue-300, and without oral contrast. Sagittal and coronal images were reconstructed. Individualized dose optimization techniques were used for this CT. COMPARISON: Comparison is made with prior CT scan of the pelvis dated 11/30/2019. FINDINGS: Minimal degree of increased markings at the lung bases suggestive of bibasilar atelectasis and/or scarring. Coronary artery calcification. Normal liver. Normal gallbladder and extrahepatic biliary system. Normal spleen. Normal pancreas. Normal bilateral adrenal glands. Multiple bilateral renal cysts. The largest cyst in the right kidney is in the upper pole and measures 9.8 cm x 7.9 cm. The largest cyst in the left kidney is in the upper pole and measures 9.9 cm x 9 cm. Normal visualized stomach. Normal small intestine. There are multiple colonic diverticula consistent with diverticulosis. The appendix is visualized and appears normal. There is diffuse atherosclerotic calcification of the abdominal aorta, without a demonstrated aneurysm. Normal inferior vena cava. Normal retroperitoneum. Normal abdominal wall. There are diffuse degenerative changes of the visualized lumbar spine. Straightening of the normal lumbar lordosis. CT/Abdomen W/WO IV Contrast IMPRESSION: Multiple bilateral large renal cysts. Sigmoid diverticulosis. Electronically Signed: Sam Naik MD at 15:44 EDT , Service support ,
[2020-09-04 13:41] LABS: CREATININE FINGERSTICK 1.3 mg/dL (0.70-1.30)
== END ==
PROVIDERS: PCP Internal Medicine; Referring Provider Nurse Practitioner Adult Health; Visit Provider Nurse Practitioner Adult Health
DX: D41.00 Neoplasm of uncertain behavior of unspecified kidney (principal)
CPT/HCPCS: 74170; Q9967

== ENCOUNTER 2020-09-26 08:26 | Outpatient (RCR) | payer MEDICARE, SELFPAY ==
[2020-02-29 09:10] VITALS: BMI 30.7
[2020-09-26 08:59] LABS: International Normalized Ratio 2.6
== END 2020-09-26 18:00 | disposition home or self-care (01) ==
LOC: LAB 08:26
PROVIDERS: Family Provider Internal Medicine; PCP Internal Medicine; Referring Provider Internal Medicine; Visit Provider Internal Medicine
DX: Z79.01 Long term (current) use of anticoagulants (principal)
CPT/HCPCS: 36415; 85610

== ENCOUNTER 2020-10-31 07:38 | Outpatient (RCR) | payer MEDICARE, SELFPAY ==
[2020-02-29 09:10] VITALS: BMI 30.7
[2020-10-31 08:31] LABS: International Normalized Ratio 2.1; Prothrombin Time (Protime)PT. 22.7 SECONDS (11.7-14.9)
== END 2020-10-31 18:00 | disposition home or self-care (01) ==
LOC: LAB 07:38
PROVIDERS: Family Provider Internal Medicine; PCP Internal Medicine; Referring Provider Internal Medicine; Visit Provider Internal Medicine
DX: Z79.01 Long term (current) use of anticoagulants (principal)
CPT/HCPCS: 36415; 85610

== ENCOUNTER 2020-11-28 07:39 | Outpatient (RCR) | payer MEDICARE, SELFPAY ==
[2020-11-08 11:38] VITALS: BMI 30.4
[2020-11-28 08:36] LABS: International Normalized Ratio 2.6; Prothrombin Time (Protime)PT. 27.2 SECONDS (11.7-14.9)
== END 2020-11-28 18:00 | disposition home or self-care (01) ==
LOC: LAB 07:39
PROVIDERS: Family Provider Internal Medicine; PCP Internal Medicine; Referring Provider Internal Medicine; Visit Provider Internal Medicine
DX: Z79.01 Long term (current) use of anticoagulants (principal)
CPT/HCPCS: 36415; 85610

== ENCOUNTER 2021-01-23 07:53 | Outpatient (RCR) | payer MEDICARE, SELFPAY ==
[2020-12-25 19:36] VITALS: BMI 30.4
[2020-12-26 08:43] LABS: International Normalized Ratio 3.2; Prothrombin Time (Protime)PT. 32.1 SECONDS (11.7-14.9)
[2021-01-02 08:17] LABS: International Normalized Ratio 2.8; Prothrombin Time (Protime)PT. 28.5 SECONDS (11.7-14.9)
[2021-01-09 09:21] LABS: International Normalized Ratio 2.9; Prothrombin Time (Protime)PT. 29.9 SECONDS (11.7-14.9)
[2021-01-23 08:35] LABS: International Normalized Ratio 3.6
== END 2021-01-23 18:00 | disposition home or self-care (01) ==
LOC: LAB 07:53
PROVIDERS: Family Provider Internal Medicine; PCP Internal Medicine; Referring Provider Internal Medicine; Visit Provider Internal Medicine
DX: Z79.01 Long term (current) use of anticoagulants (principal)
CPT/HCPCS: 36415; 85610

== ENCOUNTER 2021-02-13 08:01 | Outpatient (RCR) | payer MEDICARE, SELFPAY ==
[2021-01-24 18:24] VITALS: BMI 30.4
[2021-01-30 08:26] LABS: International Normalized Ratio 2.3; Prothrombin Time (Protime)PT. 24.5 SECONDS (11.7-14.9)
[2021-02-06 09:18] LABS: Prothrombin Time (Protime)PT. 28.7 SECONDS (11.7-14.9)
[2021-02-06 09:35] LABS: International Normalized Ratio 2.8
[2021-02-13 08:32] LABS: International Normalized Ratio 2.6; Prothrombin Time (Protime)PT. 26.9 SECONDS (11.7-14.9)
== END 2021-02-24 02:46 | disposition home or self-care (01) ==
LOC: LAB 08:01
PROVIDERS: Family Provider Internal Medicine; PCP Internal Medicine; Referring Provider Internal Medicine; Visit Provider Internal Medicine
DX: Z79.01 Long term (current) use of anticoagulants (principal)
CPT/HCPCS: 36415; 85610

== ENCOUNTER 2021-03-13 08:05 | Outpatient (RCR) | payer MEDICARE, SELFPAY ==
[2021-02-24 02:46] VITALS: BMI 30.4
[2021-03-13 08:37] LABS: International Normalized Ratio 2.1; Prothrombin Time (Protime)PT. 22.8 SECONDS (11.7-14.9)
== END 2021-03-26 18:00 | disposition home or self-care (01) ==
LOC: LAB 08:05
PROVIDERS: Family Provider Internal Medicine; PCP Internal Medicine; Referring Provider Internal Medicine; Visit Provider Internal Medicine
DX: Z79.01 Long term (current) use of anticoagulants (principal)
CPT/HCPCS: 36415; 85610

== ENCOUNTER → 2021-03-29 08:04 | Outpatient (CLI) | payer MEDICARE, SELFPAY ==
[2021-03-29 08:52] LABS: Absolute Lymphocyte Count 1.63 X10^3/uL (0.83-4.51); Absolute Neutrophil Count 6.7 X10^3/uL (2.0-7.7); Basophil# 0.04 X10^3/uL; Basophil% 0.4 % (0-1); Eosinophil# 0.08 X10^3/uL; Eosinophils% 0.9 % (0-5); Hematocrit 40.8 % (40-54); Hemoglobin 14.2 g/dL (13.0-16.5); Lymphocyte # 1.63 X10^3/ul (0.83-4.51); Lymphocyte % 17.8 % (19-41); Mean Corp Hgb Conc 34.8 g/dL (32-36); Mean Corpuscular Hgb 31.6 pg (27.0-32.0); Mean Corpuscular Volume 90.9 fL (80-94); Mean Platelet Vol. 8.8 fl (6.2-12.0); Monocyte# 0.66 X10^3/uL; Monocyte% 7.2 % (0-10); NRBC Flagged by Analyzer 0 % (0-5); Neutrophil # 6.71 X10^3/uL (2.7-7.7); Neutrophil % 73.4 % (47-70); Platelet Count 197 K/mm3 (150-450); RBC Distribution Width CV 13.9 % (11.6-14.6); RBC Distribution Width SD 46.7 fl (35.1-43.9); Red Blood Count 4.49 M/mm3 (4.6-6.2); White Blood Count 9.2 K/mm3 (4.4-11.0)
[2021-03-29 09:40] LABS: ALB/GLOB Ratio 1.1 RATIO (0.9-2.4); AST(SGOT) 20 U/L (15-37); Alanine Aminotransfer ALT/SGPT 28 U/L (16-61); Albumin, Serum 3.7 g/dL (3.2-5.0); Alkaline Phosphatase 70 U/L (45-117); Anion Gap 6 (5-15); BUN 24 mg/dL (7-18); BUN/Creat Ratio 24.9 RATIO (10-20); Calcium,Total 9.1 mg/dL (8.5-10.1); Chloride 104 mmol/L (98-107); Cholesterol 102 mg/dL (200); Creatinine, Serum 0.96 mg/dL (0.70-1.30); EST Glomerular Filtration Rate 80 mL/min (>60); Est Glom Filt Rate - Afr Amer 96 mL/min (>60); Globulin 3.3 g/dL (2.2-4.2); Glucose 91 mg/dL (74-106); High Density Lipoprotein 31 mg/dL; Potassium 3.9 mmol/L (3.5-5.1); Sodium Level 139 mmol/L (136-145); Triglycerides 187 mg/dL; Very Low Density Lipoprotein 37 mg/dL (5-40)
== END ==
PROVIDERS: PCP Internal Medicine; Referring Provider Internal Medicine; Visit Provider Internal Medicine
DX: Z00.00 Encounter for general adult medical examination without abnormal findings (principal); I10 Essential (primary) hypertension
CPT/HCPCS: 36415; 80053; 80061; 85025

== ENCOUNTER 2021-04-24 07:43 | Outpatient (RCR) | payer MEDICARE, SELFPAY ==
[2021-03-27 01:19] VITALS: BMI 30.4
[2021-03-27 09:09] LABS: International Normalized Ratio 2.1; Prothrombin Time (Protime)PT. 22.7 SECONDS (11.7-14.9)
[2021-04-24 08:14] LABS: International Normalized Ratio 2.3; Prothrombin Time (Protime)PT. 24.4 SECONDS (11.7-14.9)
== END 2021-04-27 18:00 | disposition home or self-care (01) ==
LOC: LAB 07:43
PROVIDERS: Family Provider Internal Medicine; PCP Internal Medicine; Referring Provider Internal Medicine; Visit Provider Internal Medicine
DX: Z79.01 Long term (current) use of anticoagulants (principal)
CPT/HCPCS: 36415; 85610

== ENCOUNTER 2021-05-22 08:44 | Outpatient (RCR) | payer MEDICARE, SELFPAY ==
[2021-04-28 03:32] VITALS: BMI 30.4
[2021-05-22 09:12] LABS: Prothrombin Time (Protime)PT. 21.6 SECONDS (11.7-14.9)
== END 2021-05-27 18:00 | disposition home or self-care (01) ==
LOC: LAB 08:44
PROVIDERS: Family Provider Internal Medicine; PCP Internal Medicine; Referring Provider Internal Medicine; Visit Provider Internal Medicine
DX: Z79.01 Long term (current) use of anticoagulants (principal)
CPT/HCPCS: 36415; 85610

== ENCOUNTER 2021-07-04 08:25 | Outpatient (RCR) | payer MEDICARE, SELFPAY ==
[2021-05-27 22:05] VITALS: BMI 30.4
[2021-07-04 09:42] LABS: International Normalized Ratio 2.6; Prothrombin Time (Protime)PT. 27.4 SECONDS (11.7-14.9)
== END 2021-07-25 18:00 | disposition home or self-care (01) ==
LOC: LAB 08:25
PROVIDERS: Family Provider Internal Medicine; PCP Internal Medicine; Referring Provider Internal Medicine; Visit Provider Internal Medicine
DX: Z79.01 Long term (current) use of anticoagulants (principal); D68.59 Other primary thrombophilia
CPT/HCPCS: 36415; 85610

== ENCOUNTER 2021-08-19 08:26 | Outpatient (RCR) | payer MEDICARE, SELFPAY ==
[2021-07-26 00:49] VITALS: BMI 30.4
[2021-08-01 08:55] LABS: International Normalized Ratio 3.2; Prothrombin Time (Protime)PT. 31.7 SECONDS (11.7-14.9)
[2021-08-12 08:36] LABS: International Normalized Ratio 2.5; Prothrombin Time (Protime)PT. 26.8 SECONDS (11.7-14.9)
[2021-08-19 08:46] LABS: Prothrombin Time (Protime)PT. 32.4 SECONDS (11.7-14.9)
[2021-08-19 08:59] LABS: International Normalized Ratio 3.2
== END 2021-08-19 18:00 | disposition home or self-care (01) ==
LOC: LAB 08:26
PROVIDERS: Family Provider Internal Medicine; PCP Internal Medicine; Referring Provider Internal Medicine; Visit Provider Internal Medicine
DX: Z79.01 Long term (current) use of anticoagulants (principal); D68.59 Other primary thrombophilia
CPT/HCPCS: 36415; 85610

== ENCOUNTER 2021-09-24 08:15 | Outpatient (RCR) | payer MEDICARE, SELFPAY ==
[2021-08-25 02:35] VITALS: BMI 30.4
[2021-08-26 08:30] LABS: International Normalized Ratio 2.8
[2021-09-02 08:19] LABS: International Normalized Ratio 2.3; Prothrombin Time (Protime)PT. 24.8 SECONDS (11.7-14.9)
[2021-09-16 08:32] LABS: International Normalized Ratio 3.3; Prothrombin Time (Protime)PT. 33.3 SECONDS (11.7-14.9)
[2021-09-24 09:03] LABS: International Normalized Ratio 2.8
== END 2021-09-24 18:00 | disposition home or self-care (01) ==
LOC: LAB 08:15
PROVIDERS: Family Provider Internal Medicine; PCP Internal Medicine; Referring Provider Internal Medicine; Visit Provider Internal Medicine
DX: D68.59 Other primary thrombophilia (principal); Z79.01 Long term (current) use of anticoagulants
CPT/HCPCS: 36415; 85610

== ENCOUNTER 2021-10-14 08:02 | Outpatient (RCR) | payer MEDICARE, SELFPAY ==
[2021-09-24 20:07] VITALS: BMI 30.4
[2021-09-30 08:48] LABS: International Normalized Ratio 2.5
[2021-10-14 08:48] LABS: International Normalized Ratio 2.5; Prothrombin Time (Protime)PT. 26.7 SECONDS (11.7-14.9)
== END 2021-10-14 23:59 | disposition home or self-care (01) ==
LOC: LAB 08:02
PROVIDERS: Family Provider Internal Medicine; PCP Internal Medicine; Referring Provider Internal Medicine; Visit Provider Internal Medicine
DX: D68.59 Other primary thrombophilia (principal); Z79.01 Long term (current) use of anticoagulants
CPT/HCPCS: 36415; 85610

== ENCOUNTER 2021-11-11 08:22 | Outpatient (RCR) | payer MEDICARE, SELFPAY ==
[2021-10-25 06:33] VITALS: BMI 30.4
[2021-11-11 08:52] LABS: International Normalized Ratio 2.6; Prothrombin Time (Protime)PT. 27.6 SECONDS (11.7-14.9)
== END 2021-11-24 01:56 | disposition home or self-care (01) ==
LOC: LAB 08:22
PROVIDERS: Family Provider Internal Medicine; PCP Internal Medicine; Referring Provider Internal Medicine; Visit Provider Internal Medicine
DX: D68.59 Other primary thrombophilia (principal); Z79.01 Long term (current) use of anticoagulants
CPT/HCPCS: 36415; 85610

== ENCOUNTER → 2021-11-27 | Outpatient (CLI) | payer MEDICARE, SELFPAY ==
--- NOTE | 2021-11-27 15:46 | STRESSREP ---
Stress Test Report Pharmacologic myocardial perfusion stress test. 81-year-old man with a history of shortness of breath. Stress EKG. Resting EKG demonstrates sinus rhythm with a rate of 61 bpm and a right bundle branch block. Resting blood pressure is 140/88 mmHg. 0.4 mg of regadenoson was infused per usual protocol followed by rapid intravenous saline flush injection continuous EKG monitoring was performed. The maximum heart rate attained was 100 bpm which was 71% of max impacted heart rate the maximum workload was 1 metabolic equivalent. At rest there were no ST or T wave changes noted to suggest abnormal flow reserve and a peak infusion nonspecific ST changes were noted. No clinical angina was noted. The peak blood pressure was 140/88 mmHg. Myocardial perfusion protocol. 14.7 mCi of technetium 99m sestamibi was injected at rest. 0.4 mg of regadenoson was infused per usual protocol. At peak infusion 44.8 mCi of technetium 99m sestamibi was injected stress images were obtained stress and rest images were reconstructed and compared in the short axis vertical long horizontal long axis. Gated images were also obtained to Perfusion SPECT analysis: Review of the stress images demonstrate mild reduction of perfusion noted in the anterior wall. The septum lateral wall and inferior wall appear to be normally perfused. The resting images demonstrate improvement in the anterior wall suggestive of anterior ischemia which appears to be mild to moderate. No previous infarct is noted. Gated SPECT analysis: The gated ejection fraction is 58%. Conclusion: Abnormal pharmacologic myocardial perfusion stress test with mild to moderate anterior ischemia. Preserved ejection fraction.
== END | disposition home or self-care (01) ==
PROVIDERS: PCP Internal Medicine; Referring Provider Physician Assistant Medical; Visit Provider Physician Assistant Medical
DX: R06.00 Dyspnea, unspecified (principal); I45.10 Unspecified right bundle-branch block; R53.83 Other fatigue
CPT/HCPCS: 78452; 93017; A9500; A4216; J2785

== ENCOUNTER 2021-12-02 08:24 | Day surgery (SDC) | payer MEDICARE, SELFPAY ==
--- NOTE | 2021-11-28 08:10 | RAD_ITS ---
INDICATION: CAD EXAMINATION/TECHNIQUE: X-RAY - XR Chest 2 Views COMPARISON: 05/22/2018. FINDINGS: LINES/DEVICES: AICD visualized in the left chest with 2 leads in the RA and RV.. Bilateral shoulder prosthesis seen. LUNGS: Linear subsegmental atelectatic streaks visualized in the right lower lung field. No evidence of focal lung infiltrate or consolidation, costophrenic angles are clear bilaterally no evidence of pleural effusions. No evidence of pneumothorax or parenchymal lung mass. MEDIASTINUM AND CARDIOVASCULAR STRUCTURES: Cardiac silhouette not enlarged. Central airways and mediastinal contour are unremarkable. BONES AND SOFT TISSUES: Unremarkable. RAD/Chest PA and Lateral IMPRESSION: No radiographic evidence of acute cardiopulmonary disease. Electronically Signed: Israel Mullins MD at 8:41 EDT ,
[2021-11-28 08:19] LABS: Absolute Lymphocyte Count 1.02 X10^3/uL (0.83-4.51); Absolute Neutrophil Count 4.5 X10^3/uL (2.0-7.7); Basophil# 0.03 X10^3/uL; Basophil% 0.5 % (0-1); Eosinophil# 0.04 X10^3/uL; Eosinophils% 0.7 % (0-5); Hematocrit 42.2 % (40-54); Hemoglobin 14.2 g/dL (13.0-16.5); Lymphocyte # 1.02 X10^3/ul (0.83-4.51); Mean Corp Hgb Conc 33.6 g/dL (32-36); Mean Corpuscular Hgb 31.4 pg (27.0-32.0); Mean Corpuscular Volume 93.4 fL (80-94); Mean Platelet Vol. 8.8 fl (6.2-12.0); Monocyte# 0.36 X10^3/uL; NRBC Flagged by Analyzer 0 % (0-5); Neutrophil # 4.54 X10^3/uL (2.7-7.7); Neutrophil % 75.5 % (47-70); Platelet Count 168 K/mm3 (150-450); RBC Distribution Width CV 14.6 % (11.6-14.6); RBC Distribution Width SD 49.4 fl (35.1-43.9); Red Blood Count 4.52 M/mm3 (4.6-6.2)
[2021-11-28 08:28] LABS: Prothrombin Time (Protime)PT. 30.6 SECONDS (11.7-14.9)
[2021-11-28 08:34] LABS: Anion Gap 4 (5-15); BUN 19 mg/dL (7-18); BUN/Creat Ratio 16.2 RATIO (10-20); Calcium,Total 9.2 mg/dL (8.5-10.1); Chloride 108 mmol/L (98-107); Creatinine, Serum 1.17 mg/dL (0.70-1.30); EST Glomerular Filtration Rate 64 mL/min (>60); Est Glom Filt Rate - Afr Amer 77 mL/min (>60); Glucose 145 mg/dL (74-106); Potassium 3.5 mmol/L (3.5-5.1); Sodium Level 139 mmol/L (136-145)
[2021-11-29 07:51] VITALS: BMI 30.7
[2021-12-02 08:40] LABS: INR Fingerstick 1.6; Prothrombin Time Fingerstick 19.3 SEC (11.7-14.9)
--- NOTE | 2021-12-02 12:24 | CL.D_ITS ---
Patient Name: MARTIN AUGUSTINE Study Date: 12/02/2021 Performing: Low Henry MD Ht: 72.83 inches 185 cm : 1940 Wt: 233.69 lbs 106 kg Age: 81 Gender: male BSA: 2.3 PROCEDURE(S) PERFORMED DC02-(16999)LHC/COR CLINICAL PROFILE AND INDICATIONS Indications: Suspected CAD Heart Failure: None Stress/Imaging Date: 11/27/21Stress Test with SPECT MPI: Positive Low Risk CAD Presentations: Symptom unlikely to be ischemic. CONCLUSIONS Non obstructive coronary arteries Normal LV size, wall motion,and systolic function RECOMMENDATIONS Medical therapy DESCRIPTION OF PROCEDURE The patient arrived to the procedure lab. The risks and benefits of the procedure as well as a full d escription of our services here and current unavailability of surgical backup were fully explained to the patient and/or their significant other prior to the catheterization. The Timeout was completed, verifying the correct patient and procedure. The patient's procedural site was prepped and draped in the usual fashion. Local anesthetic was given subcutaneously to right radial region with Lidocaine 2% . Using a modified Seldinger technique, arterial access was obtained via the right radial artery, a 6 Fr sheath was inserted. Left Coronary Artery selective angiography was performed in multiple views u sing a 5 Fr. 4.0 [place] catheter. Right Coronary Artery selective angiography was then performed in mu ltiple views using a 5 Fr. 4.0 [place] catheter.The arterial sheath was pulled and a TR Band was applie d for hemostasis - 14cc air CORONARY ANGIOGRAPHY DOMINANCE: Right Dominant LEFT HEART ASSESSMENT Left Ventricular Ejection Fraction: by Echo 55 % Normal Left Ventricular systolic function LEFT MAIN: Angiographically normal LEFT ANTERIOR DESCENDING ARTERY: No significant disease noted CIRCUMFLEX ARTERY: No significant disease noted RIGHT CORONARY ARTERY: Moderate luminal irregularities up to 50% COMPLICATIONS No Complications PROCEDURE MEDICATIONS Fentanyl 50 mcg IV Versed 1 mg IV Fentanyl 25 mcg IV Oxygen: 2 L/min via nasal cannula Heparin given IA 12/02/2021 11:31:00 Verapamil 2.5mg, Ntg 100mcgs, 3000 units of Heparin given IA 12/02/2021 11:31:00 SUMMARY OF HEMODYNAMIC DATA Time AIR REST ECG 09:06:20 ECG 11:12:45 AO 127/78 (97) SA 11:32:48 AO 107/61 (75) 11:34:49 Signed By Low Henry MD On 12/02/2021 12:23:33 PM Low Henry MD
== END 2021-12-02 14:08 | disposition home or self-care (01) ==
LOC: CLSP 08:24
PROVIDERS: PCP Internal Medicine; Referring Provider Internal Medicine Cardiovascular Disease; Visit Provider Internal Medicine Cardiovascular Disease
DX: R53.83 Other fatigue (principal); I10 Essential (primary) hypertension; E78.5 Hyperlipidemia, unspecified; Z95.0 Presence of cardiac pacemaker; R42 Dizziness and giddiness; G47.33 Obstructive sleep apnea (adult) (pediatric); E78.2 Mixed hyperlipidemia; Z86.711 Personal history of pulmonary embolism; R94.39 Abnormal result of other cardiovascular function study
CPT/HCPCS: 36415; 36416; 71046; 80048; 85025; 85610; 93454; 99152; 99153; J7040; C1769; C1887; C1894

== ENCOUNTER 2021-12-09 08:27 | Outpatient (RCR) | payer MEDICARE, SELFPAY ==
[2021-11-24 01:56] VITALS: BMI 30.4
[2021-12-09 10:23] LABS: International Normalized Ratio 2.2; Prothrombin Time (Protime)PT. 24.1 SECONDS (11.7-14.9)
== END 2021-12-09 18:00 | disposition home or self-care (01) ==
LOC: LAB 08:27
PROVIDERS: Family Provider Internal Medicine; PCP Internal Medicine; Referring Provider Internal Medicine; Visit Provider Internal Medicine
DX: D68.59 Other primary thrombophilia (principal); Z79.01 Long term (current) use of anticoagulants
CPT/HCPCS: 36415; 85610

== ENCOUNTER → 2021-12-27 | Outpatient (CLI) | payer MEDICARE, SELFPAY ==
--- NOTE | 2021-12-27 14:13 | CT_ITS ---
STUDY: CT PELVIS WITH CONTRAST REASON FOR EXAM: Male, 81 years old. Left groin pain RADIATION DOSAGE (If Supplied By Facility): CTDIvol = ( 28.21 ) mGy, DLP = ( 42654.23 ) mGycm TECHNIQUE: Transaxial imaging of the pelvis was performed without oral contrast. Oral and amp; IV Readi-CAT and amp; 100mL Isovue-300 was administered intravenously. Individualized dose optimization techniques were used for this CT. COMPARISON: Comparison is made with prior examination dated 11/30/2019. FINDINGS: Normal urinary bladder. Multiple bilateral renal cysts. Prostatic calcifications. Prostatic enlargement. Left-sided hydrocele. Normal visualized small intestine. There are multiple colonic diverticula of the sigmoid colon consistent with chronic diverticulosis. There is no pelvic fluid. There is no pelvic lymphadenopathy or mass lesion. There is diffuse atherosclerotic calcification of the pelvic arteries. Bilateral inguinal rings containing fat right greater than left. There are diffuse degenerative changes of the visualized lumbar spine. There is evidence of bilateral total hip replacements. This causes limited evaluation of the pelvic structures. CT/Pelvis WITH IV Contrast IMPRESSION: Bilateral inguinal hernias containing fat more prominent on the right side. Stable bilateral renal cysts. Sigmoid diverticulosis. Prostatic enlargement with central calcifications. Electronically Signed: Sam Naik MD at 14:46 EDT ,
== END | disposition home or self-care (01) ==
LOC: CT 14:11
PROVIDERS: PCP Internal Medicine; Referring Provider Internal Medicine; Visit Provider Internal Medicine
DX: R10.32 Left lower quadrant pain (principal)
CPT/HCPCS: 72193; Q9967

== ENCOUNTER 2022-01-13 11:19 | Outpatient (RCR) | payer MEDICARE, SELFPAY ==
[2021-12-25 22:16] VITALS: BMI 30.4
[2022-01-01 08:20] LABS: INR Fingerstick 1.9; Prothrombin Time Fingerstick 22.3 SEC (11.7-14.9)
[2022-01-13 11:31] LABS: Prothrombin Time Fingerstick 24.1 SEC (11.7-14.9)
== END 2022-01-13 18:00 | disposition home or self-care (01) ==
LOC: LAB 11:19
PROVIDERS: Family Provider Internal Medicine; PCP Internal Medicine; Visit Provider Internal Medicine Cardiovascular Disease
DX: D68.59 Other primary thrombophilia (principal); Z79.01 Long term (current) use of anticoagulants; I48.0 Paroxysmal atrial fibrillation
CPT/HCPCS: 36416; 85610

== ENCOUNTER 2022-01-17 07:40 | Day surgery (SDC) | payer MEDICARE, SELFPAY ==
[2022-01-17] VITALS (7 sets, daily range): BP systolic 80–131; BP diastolic 62–80; PULSE 62–72; RESP 16–20; TEMP 36.3–36.7; O2SAT 93–96; BMI 29.9
[2022-01-17] MEDS: Lactated Ringers 1,000 ML 15 ML IV (08:05)
--- NOTE | 2022-01-17 08:54 | PCM.HP.BLA ---
History and Physical Date of Admission: 01/17/22 Intake Vital Signs ? 01/03/2208:34 Height 6 ft 1 in Weight: 232 lb 2 oz BMI 30.6 BP 111/74 Blood Pressure Location Rt brachial Position Sitting Respiration 18 Pulse 87 Pulse Source Monitor Temp 96.1 F L Temp Source Temporal Pulse Oximetry (%) 95 Oxygen Delivery Method room air Intake Visit Reasons:?INGUINAL HERNIAS Chief Complaint: Left groin pain Contract Engineer Required: No Is patient in pain?: No Allergies amlodipine [From [facility]] Allergy (Verified 01/02/22 08:36) Unknowntrazodone Allergy (Verified 01/02/22 08:36) Unknownamiodarone Adverse Reaction (Verified 01/02/22 08:36) Severe Fatigue Medications finasteride 5 mg tablet 5 mg PO QHS 01/14/17 [History Confirmed 01/02/22] hydrocodone-acetaminophen 5-325mg 5mg-325mg 1 ea PO Q6H PRN PRN Pain 01/14/17 [History Confirmed 01/02/22] multivitamin with folic acid 400 mcg tablet 1 tab PO DAILY 01/14/17 [History Confirmed 01/02/22] tamsulosin 0.4 mg capsule 0.4 mg PO DAILY prostate 05/14/17 [History Confirmed 01/02/22] losartan 100 mg-hydrochlorothiazide 25 mg tablet 1 tab PO QDAY htn 08/05/17 [History Confirmed 01/02/22] zolpidem 10 mg tablet (Ambien) 10 mg PO HS PRN Sleep 08/05/17 [History Confirmed 01/02/22] omeprazole 40 mg capsule,delayed release 40 mg PO DAILY gerd 11/10/17 [History Confirmed 01/02/22] atorvastatin 40 mg tablet 20 mg PO QHS #90 tabs 11/02/18 [History Confirmed 01/02/22] angypmd-ucosinffdzbnf-fepujqhy 250 mg-250 mg-65 mg tablet 1 ea PO PRN PRN Pain Or Fever 10/12/19 [History Confirmed 01/02/22] aspirin 81 mg tablet,delayed release (Adult Aspirin Regimen) 81 mg PO DAILY take morning of heART CATH 11/27/21 [History Confirmed 01/02/22] metoprolol succinate 25 mg tablet,extended release 24 hr 25 mg PO DAILY #90 tabs 11/28/21 [Rx Confirmed 01/02/22] prednisone 2.5 mg tablet 2.5 mg PO DAILY 12/18/21 [History Confirmed 01/02/22] sertraline 50 mg tablet 50 mg PO DAILY 12/18/21 [History Confirmed 01/02/22] warfarin 10 mg tablet 10 mg PO .COMPLEX 01/01/22 [History Confirmed 01/02/22] warfarin 5 mg tablet 5 mg PO .COMPLEX 01/01/22 [History Confirmed 01/02/22] PFSH Medical History? Abnormal cardiovascular stress test Bilateral inguinal hernia Bilateral inguinal hernia, without obstruction or gangrene, recurrent Breakdown (mechanical) of cardiac electrode, subsequent encounter Chronic diastolic (congestive) heart failure Complete heart block Diverticulitis DVT (deep venous thrombosis) Essential (primary) hypertension Hx of rheumatic fever Hypercoagulable state Hyperlipidemia Multiple premature ventricular complexes Nonobstructive atherosclerosis of coronary artery Nonrheumatic aortic (valve) insufficiency Nonrheumatic mitral (valve) insufficiency Nonrheumatic tricuspid (valve) insufficiency NSVT (nonsustained ventricular tachycardia) (02/2017) PEYMAN (obstructive sleep apnea) Recurrent pulmonary emboli Right bundle branch block (RBBB) Sick sinus syndrome Surgical History? cystourethroscopy (2003) H/O shoulder replacement History of bilateral hip replacements History of bilateral inguinal hernia repair (10/20/19) History of colonoscopy History of detached retina repair History of hydrocelectomy History of left heart catheterization (12/02/21) History of left inguinal hernia repair History of permanent cardiac pacemaker placement (01/2017) History of prostate biopsy Hx of total knee replacement (05/15/12) Family History? Father Alcoholism CancerGrandmother Enlarged heartBrother?? Colon cancer,? Onset Age: 50Uncle Colon cancer Social History? household members:? spouse current occupational status:? 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 Never smoker Electronic Cigarette Use:? not used alcohol intake:? never substance use type:? does not use caffeine:? Yes Type: coffee Number of servings: 3 and tea what type of physical activity do you participate in:? none seatbelt use:? always do you feel safe at home:? Yes HPI HPI HPI: Patient is complaining of persistent left groin pain.? The patient says this groin pain is been there since he had his hernia repair in 2012 and did not go away when I repaired his recurrent hernia in 2019.? He says it bothers him but not lifestyle limiting. ROS General General: Yes fatigue; No weight change, appetite, colon cancer, breast cancer or weakness HEENT HEENT: Yes eye surgery; No difficulty swallowing, eye injury, swollen glands or hoarseness Endo Endocrine: No thyroid disease, diabetes mellitus, thyroid cancer, Hair loss, heat intolerance or cold intolerance Skin Skin: No rash or changing moles Breast Breast: No left breast lump, right breast lump, nipple discharge, breast pain, abnormal mammogram, abnormal US or breast enlargement Musc Musculoskeletal: Yes back problems, arthritis and rheumatoid arthritis; No gout or joint pain Cardio Cardiovascular: Yes murmur, pacemaker, heart disease and high blood pressure; No atrial fibrillation, heart attack, heart stent, palpitations, shortness of breat with exertion or chest pain Psych Psychiatric: Yes anxiety; No depression or hearing voices Resp Respiratory: Yes shortness of breath, Yes sleep apnea, Yes cough, No COPD, No asthma, No emphysema and No wheezing Gastro Gastrointestinal: Yes abdominal pain, No nausea or vomiting, No diarrhea, No constipation, No blood in stool, Yes acid reflux, No hemorrhoids, No ulcers, No gallbladder problem and No black,tarry stools Savage Hematologic: No blood thinners, No blood disorders, No bleeding, No anemia and No blood clots Neuro Neurologic: No system reviewed and no additional complaints, except as documented, No as per HPI, No abnormal gait, No abnormal hearing, No abnormal movements, No abnormal speech, No behavioral changes, No burning sensations, No confusion, No convulsions, No disequilibrium, No dizziness, No localized weakness, No frequent falls, No headache(s), No lack of coordination, No loss of vision, No memory loss, No numbness, No other visual disturbances, No radicular pain, No restless legs, No sensory deficit, No syncope, No tingling, No tremor(s), No weakness and No other Exam Const General: cooperative Orientation: alert and oriented x3 HENMT Head: normal to inspection Neck Neck: normal visual inspection and full ROM Chest Chest palpation & inspection: normal inspection of the chest Resp Effort & Inspection: normal respiratory effort Auscultation: clear to auscultation bilaterally Cardio Rate: regular rate Rhythm: regular rhythm GI Inspection: non-distended Palpation: soft and nontender Skin General: no rashes or lesions noted Neuro General: patient alert and patient oriented x3 Extrem General: full ROM Psych Appearance: grossly normal Mental Status: mental status grossly normal Assessment and Plan Assessment and Plan The patient has family history of colon cancer in his brother at younger than age 50 and has not had a colonoscopy in over 8 years.? I recommend the patient have a colonoscopy as he is still in good health. I explained endoscopy in detail to the patient.? I explained the risks including but not limited to stroke or heart attack with anesthesia, perforation of the GI tract, bleeding, infection.? I explained that any of these could necessitate further emergency surgery.? The patient understands and all questions were answered sufficiently.? The patient wishes to proceed with procedure. Ponce Ruano MD Pager: [facility] [address] [place] [address], [address] [place] [address] Office: I have re-examined the patient. There are no clinical changes since date of exam.
--- NOTE | 2022-01-17 09:35 | OP.COLON_ITS ---
Patient Name: Prosper Lynn Procedure Date: 01/17/2022 9:08 AM Date of : 1940 Age: 81 Procedure: Colonoscopy Indications: Screening in patient at increased risk: Family history of 1st-degree relative with colorectal cancer before age 60 years Providers: Ponce Ruano MD Referring MD: Seda Merida Md Medicines: Monitored Anesthesia Care Patient Profile: This is an 81 year old male. Refer to note in patient chart for documentation of history and physical. Last Colonoscopy: several years ago. Complications: No immediate complications. Procedure: Pre-Anesthesia Assessment: - Prior to the procedure, a History and Physical was performed, and patient medications and allergies were reviewed. The patient's tolerance of previous anesthesia was also reviewed. The risks and benefits of the procedure and the sedation options and risks were discussed with the patient. All questions were answered, and informed consent was obtained. Prior Anticoagulants: The patient has taken Coumadin (warfarin), last dose was day of procedure. After reviewing the risks and benefits, the patient was deemed in satisfactory condition to undergo the procedure. After I obtained informed consent, the scope was passed under direct vision. Throughout the procedure, the patient's blood pressure, pulse, and oxygen saturations were monitored continuously. The was introduced through the anus and advanced to the cecum, identified by appendiceal orifice and ileocecal valve. The colonoscopy was performed without difficulty. The patient tolerated the procedure well. The quality of the bowel preparation was good. Scope In: 9:11:39 AM Scope Out: 9:22:36 AM Total Procedure Duration Time 0 hours 10 minutes 57 seconds Findings: The entire examined colon appeared normal on direct and retroflexion views. Impression: - The entire examined colon is normal on direct and retroflexion views. - No specimens collected. Recommendation: - Discharge patient to home. - Resume previous diet. - Continue present medications. - Repeat colonoscopy is not recommended due to current age (66 years or older) for screening purposes. Procedure Code(s): --- Professional --- G0105, Colorectal cancer screening; colonoscopy on individual at high risk Diagnosis Code(s): --- Professional --- Z80.0, Family history of malignant neoplasm of digestive organs CPT copyright 2017 [employer]. All rights reserved. The codes documented in this report are preliminary and upon property handler review may be revised to meet current compliance requirements. Ponce Ruano MD 01/17/2022 9:35:11 AM This report has been signed electronically. Number of Addenda: 0 Note Initiated On: 01/17/2022 9:08 AM
--- NOTE | 2022-01-17 09:35 | OP.CCLET_ITS ---
01/17/2022 Seda Merida Md Re : Colonoscopy procedure for Prosper Lynn Dear Fuad This procedure was performed on Monday, January 17, 2022. My impressions and recommendations are as follows: Impressions : - The entire examined colon is normal on direct and retroflexion views. - No specimens collected. Recommendations : - Discharge patient to home. - Resume previous diet. - Continue present medications. - Repeat colonoscopy is not recommended due to current age (66 years or older) for screening purposes. My findings are described in the full procedure note, which is enclosed. If I can be of further assistance, please feel free to contact me at Doctor phone number(s): , Work: . Sincerely, Ponce Ruano MD 01/17/2022 9:35:11 AM This report has been signed electronically.
== END 2022-01-17 10:20 | disposition home or self-care (01) ==
LOC: EN 07:40 → AC 07:41
PROVIDERS: PCP Internal Medicine; Referring Provider Internal Medicine; Visit Provider Surgery
PROC: 0DJD8ZZ Inspection of Lower Intestinal Tract, Via Natural or Artificial Opening Endoscopic (ICD-10-PCS; CPT 45378; principal; 2022-01-17 08:55)
DX: Z12.11 Encounter for screening for malignant neoplasm of colon (principal); R10.9 Unspecified abdominal pain; Z80.0 Family history of malignant neoplasm of digestive organs; I10 Essential (primary) hypertension; E78.5 Hyperlipidemia, unspecified
CPT/HCPCS: G0105; J7120; J2405

== ENCOUNTER 2022-02-17 08:14 | Outpatient (RCR) | payer MEDICARE, SELFPAY ==
[2022-01-24 19:33] VITALS: BMI 30.4
[2022-02-03 08:30] LABS: Prothrombin Time Fingerstick 23.3 SEC (11.7-14.9)
[2022-02-17 11:16] LABS: INR Fingerstick 2.2; Prothrombin Time Fingerstick 25.9 SEC (11.7-14.9)
== END 2022-02-17 18:00 | disposition home or self-care (01) ==
LOC: LAB 08:14
PROVIDERS: Family Provider Internal Medicine; PCP Internal Medicine; Visit Provider Internal Medicine Cardiovascular Disease
DX: D68.59 Other primary thrombophilia (principal); I48.0 Paroxysmal atrial fibrillation; Z79.01 Long term (current) use of anticoagulants
CPT/HCPCS: 36416; 85610

== ENCOUNTER 2022-03-17 08:51 | Outpatient (RCR) | payer MEDICARE, SELFPAY ==
[2022-02-25 09:30] VITALS: BMI 30.4
[2022-03-17 09:00] LABS: Prothrombin Time Fingerstick 34.5 SEC (11.7-14.9)
== END 2022-03-26 18:00 | disposition home or self-care (01) ==
LOC: LAB 08:51
PROVIDERS: Family Provider Internal Medicine; PCP Internal Medicine; Referring Provider Internal Medicine Cardiovascular Disease; Visit Provider Internal Medicine Cardiovascular Disease
DX: I48.0 Paroxysmal atrial fibrillation; Z79.01 Long term (current) use of anticoagulants
CPT/HCPCS: 36416; 85610

== ENCOUNTER 2022-04-07 08:19 | Outpatient (RCR) | payer MEDICARE, SELFPAY ==
[2022-03-26 22:33] VITALS: BMI 30.4
[2022-04-01 08:15] LABS: INR Fingerstick 1.8
[2022-04-08 06:51] LABS: INR Fingerstick 2.6; Prothrombin Time Fingerstick 29.7 SEC (11.7-14.9)
== END 2022-04-07 18:00 | disposition home or self-care (01) ==
LOC: LAB 08:19
PROVIDERS: Family Provider Internal Medicine; PCP Internal Medicine; Referring Provider Internal Medicine Cardiovascular Disease; Visit Provider Internal Medicine Cardiovascular Disease
DX: I48.0 Paroxysmal atrial fibrillation; Z79.01 Long term (current) use of anticoagulants
CPT/HCPCS: 36416; 85610

== ENCOUNTER 2022-05-27 08:41 | Outpatient (RCR) | payer MEDICARE, SELFPAY ==
[2022-04-26 22:34] VITALS: BMI 30.4
[2022-04-29 09:25] LABS: INR Fingerstick 2.1
[2022-05-27 08:51] LABS: INR Fingerstick 2.6; Prothrombin Time Fingerstick 29.7 SEC (11.7-14.9)
== END 2022-05-27 10:00 | disposition home or self-care (01) ==
LOC: LAB 08:41
PROVIDERS: Family Provider Internal Medicine; PCP Internal Medicine; Referring Provider Internal Medicine Cardiovascular Disease; Visit Provider Internal Medicine Cardiovascular Disease
DX: I48.0 Paroxysmal atrial fibrillation; Z79.01 Long term (current) use of anticoagulants
CPT/HCPCS: 36416; 85610

== ENCOUNTER 2022-06-19 09:08 | Outpatient (RCR) | payer MEDICARE, SELFPAY ==
[2022-05-28 07:42] VITALS: BMI 30.4
[2022-06-19 12:14] LABS: International Normalized Ratio 3.2; Prothrombin Time (Protime)PT. 32.2 SECONDS (11.7-14.9)
[2022-06-19 12:48] LABS: ALB/GLOB Ratio 1.2 RATIO (0.9-2.4); AST(SGOT) 23 U/L (15-37); Alanine Aminotransfer ALT/SGPT 25 U/L (16-61); Albumin, Serum 3.5 g/dL (3.2-5.0); Alkaline Phosphatase 66 U/L (45-117); Anion Gap 6 (5-15); BUN 27 mg/dL (7-18); Calcium,Total 9.2 mg/dL (8.5-10.1); Chloride 107 mmol/L (98-107); Cholesterol 103 mg/dL (200); Creatinine, Serum 1.08 mg/dL (0.70-1.30); EST Glomerular Filtration Rate 70 mL/min (>60); Est Glom Filt Rate - Afr Amer 84 mL/min (>60); Globulin 2.8 g/dL (2.2-4.2); Glucose 92 mg/dL (74-106); High Density Lipoprotein 32 mg/dL; PSA,Total- Diagnostic 6.04 ng/mL (0.0-4.0); Protein, Total 6.3 g/dL (6.4-8.2); Sodium Level 139 mmol/L (136-145); Triglycerides 174 mg/dL; Very Low Density Lipoprotein 35 mg/dL (5-40)
[2022-06-19 12:52] LABS: Absolute Lymphocyte Count 1.04 X10^3/uL (0.83-4.51); Absolute Neutrophil Count 5.3 X10^3/uL (2.0-7.7); Basophil# 0.05 X10^3/uL; Basophil% 0.7 % (0-1); Eosinophil# 0.04 X10^3/uL; Eosinophils% 0.6 % (0-5); Hematocrit 42.4 % (40-54); Hemoglobin 14.2 g/dL (13.0-16.5); Lymphocyte # 1.04 X10^3/ul (0.83-4.51); Lymphocyte % 14.9 % (19-41); Mean Corp Hgb Conc 33.5 g/dL (32-36); Mean Corpuscular Hgb 31.1 pg (27.0-32.0); Mean Corpuscular Volume 92.8 fL (80-94); Mean Platelet Vol. 8.7 fl (6.2-12.0); Monocyte# 0.57 X10^3/uL; Monocyte% 8.1 % (0-10); NRBC Flagged by Analyzer 0 % (0-5); Neutrophil # 5.28 X10^3/uL (2.7-7.7); Neutrophil % 75.4 % (47-70); Platelet Count 188 K/mm3 (150-450); RBC Distribution Width CV 13.9 % (11.6-14.6); RBC Distribution Width SD 47.6 fl (35.1-43.9); Red Blood Count 4.57 M/mm3 (4.6-6.2)
== END 2022-06-24 23:59 ==
LOC: BIMLAB 09:08
PROVIDERS: Family Provider Internal Medicine; PCP Internal Medicine; Referring Provider Internal Medicine Cardiovascular Disease; Visit Provider Internal Medicine Cardiovascular Disease
DX: D68.59 Other primary thrombophilia (principal); I48.0 Paroxysmal atrial fibrillation; Z79.01 Long term (current) use of anticoagulants; I44.2 Atrioventricular block, complete; I10 Essential (primary) hypertension; E78.2 Mixed hyperlipidemia; N40.0 Benign prostatic hyperplasia without lower urinary tract symptoms
CPT/HCPCS: 36415; 80053; 80061; 84153; 85025; 85610

== ENCOUNTER 2022-07-03 07:57 | Outpatient (RCR) | payer MEDICARE, SELFPAY ==
[2022-06-25 00:32] VITALS: BMI 30.4
[2022-07-03 08:06] LABS: INR Fingerstick 2.2; Prothrombin Time Fingerstick 25.4 SEC (11.7-14.9)
== END 2022-07-25 21:16 | disposition home or self-care (01) ==
LOC: LAB 07:57
PROVIDERS: Family Provider Internal Medicine; PCP Internal Medicine; Referring Provider Internal Medicine Cardiovascular Disease; Visit Provider Internal Medicine Cardiovascular Disease
DX: I48.0 Paroxysmal atrial fibrillation; Z79.01 Long term (current) use of anticoagulants
CPT/HCPCS: 36416; 85610

== ENCOUNTER 2022-07-31 08:24 | Outpatient (RCR) | payer MEDICARE, SELFPAY ==
[2022-07-25 21:16] VITALS: BMI 30.4
[2022-07-31 08:30] LABS: INR Fingerstick 2.1; Prothrombin Time Fingerstick 22.7 SEC (11.7-14.9)
== END 2022-08-24 00:25 | disposition home or self-care (01) ==
LOC: LAB 08:24
PROVIDERS: Family Provider Internal Medicine; PCP Internal Medicine; Referring Provider Internal Medicine Cardiovascular Disease; Visit Provider Internal Medicine Cardiovascular Disease
DX: I48.0 Paroxysmal atrial fibrillation (principal); Z79.01 Long term (current) use of anticoagulants
CPT/HCPCS: 36416; 85610

== ENCOUNTER 2022-09-23 07:54 | Outpatient (RCR) | payer MEDICARE, SELFPAY ==
[2022-08-24 00:25] VITALS: BMI 30.4
[2022-08-28 08:35] LABS: INR Fingerstick 2.2; Prothrombin Time Fingerstick 23.8 SEC (11.7-14.9)
[2022-09-23 08:10] LABS: INR Fingerstick 1.9; Prothrombin Time Fingerstick 21.2 SEC (11.7-14.9)
== END 2022-09-23 09:00 | disposition home or self-care (01) ==
LOC: LAB 07:54
PROVIDERS: Family Provider Internal Medicine; PCP Internal Medicine; Referring Provider Internal Medicine Cardiovascular Disease; Visit Provider Internal Medicine Cardiovascular Disease
DX: I48.0 Paroxysmal atrial fibrillation (principal); Z79.01 Long term (current) use of anticoagulants
CPT/HCPCS: 36416; 85610

== ENCOUNTER 2022-10-07 10:45 | Outpatient (RCR) | payer MEDICARE, SELFPAY ==
[2022-09-25 08:02] VITALS: BMI 30.4
[2022-10-07 10:53] LABS: INR Fingerstick 2.2; Prothrombin Time Fingerstick 23.8 SEC (11.7-14.9)
== END 2022-10-07 18:00 | disposition home or self-care (01) ==
LOC: LAB 10:45
PROVIDERS: Family Provider Internal Medicine; PCP Internal Medicine; Referring Provider Internal Medicine Cardiovascular Disease; Visit Provider Internal Medicine Cardiovascular Disease
DX: I48.0 Paroxysmal atrial fibrillation (principal); Z79.01 Long term (current) use of anticoagulants
CPT/HCPCS: 36416; 85610

== ENCOUNTER → 2022-10-20 | Outpatient (CLI) | payer MEDICARE, SELFPAY ==
[2022-10-20 16:08] LABS: PSA,Total - Annual Screen 7.39 ng/mL (0.00-4.00)
== END | disposition home or self-care (01) ==
LOC: LAB 14:51
PROVIDERS: PCP Internal Medicine; Referring Provider Urology; Visit Provider Urology
DX: Z12.5 Encounter for screening for malignant neoplasm of prostate (principal)
CPT/HCPCS: 36415; 84153; G0103

== ENCOUNTER → 2022-11-05 | Outpatient (CLI) | payer MEDICARE, SELFPAY | END | disposition home or self-care (01) | LOC: SL 10:56 | PROVIDERS: PCP Internal Medicine; Visit Provider Nurse Practitioner Acute Care | DX: G47.33 Obstructive sleep apnea (adult) (pediatric) (principal) ==

== ENCOUNTER 2022-11-18 08:14 | Outpatient (RCR) | payer MEDICARE, SELFPAY ==
[2022-10-24 20:46] VITALS: BMI 30.4
[2022-11-04 10:06] LABS: INR Fingerstick 1.9; Prothrombin Time Fingerstick 20.8 SEC (11.7-14.9)
[2022-11-18 08:27] LABS: INR Fingerstick 2.1; Prothrombin Time Fingerstick 23.2 SEC (11.7-14.9)
== END 2022-11-24 23:31 | disposition home or self-care (01) ==
LOC: LAB 08:14
PROVIDERS: Family Provider Internal Medicine; PCP Internal Medicine; Referring Provider Internal Medicine Cardiovascular Disease; Visit Provider Internal Medicine Cardiovascular Disease
DX: I48.0 Paroxysmal atrial fibrillation (principal); Z79.01 Long term (current) use of anticoagulants
CPT/HCPCS: 36416; 85610

== ENCOUNTER → 2022-11-19 | Outpatient (CLI) | payer MEDICARE, SELFPAY ==
--- NOTE | 2022-11-19 12:30 | VDLE_ITS ---
Reason For Study: Pain RLE RIGHT LEFT GSV is normal. CFV is compressible, spontaneous, phasic, CFV is compressible, spontaneous, phasic, competent, and demonstrates normal competent and demonstrates normal augmentation. augmentation. FV is compressible, spontaneous, phasic, competent and demonstrates normal augmentation. POP V is compressible, spontaneous, phasic, competent and demonstrates normal augmentation. Rt T/P Trunk is partially compressible with bright intraluminal echoes consistent with chronic DVT. PTV is compressible. RT PerV is compressible. Procedure This is a venous duplex using B-mode, color flow and spectral Doppler. Exam performed in department. A preliminary report was called and/or faxed to Tiffany Lindo NP. VL/Venous Duplex US, Unilateral Interpretation Summary Deep veins of the right lower extremity are patent and compressible segmentally . There is no evidence of right lower extremity deep vein thrombosis. The right great sapheno us vein appears patent and compressible segmentally. Ordering Physician: Tiffany Lindo Referring Physician: Seda Merida Performed By: Keysha Torres, RDSUSHANT, RVT
== END | disposition home or self-care (01) ==
LOC: CVS 12:30
PROVIDERS: PCP Internal Medicine; Referring Provider Nurse Practitioner Gerontology; Visit Provider Nurse Practitioner Gerontology
DX: M79.604 Pain in right leg (principal); Z86.718 Personal history of other venous thrombosis and embolism; Z86.711 Personal history of pulmonary embolism
CPT/HCPCS: 93971

== ENCOUNTER 2022-12-02 12:00 | Outpatient (RCR) | payer MEDICARE, SELFPAY ==
--- NOTE | 2022-10-30 13:33 | HP.PTEVAL_ITS ---
Patient's Visit Information Visit Information Visit Information: MARTIN AUGUSTINE is a 82 year old M referred to Physical Therapy by RACHID Rodriguez with a diagnosis of TROCHANTERIC BURSITUS ,RIGHT HIP. Date of Evaluation: 10/30/22 Physical Therapist: Maco Moran, PT, Cert MDT, OCS Visit Plan Frequency: 1x/Week Duration: 4 Weeks Plan: H/O BILATERAL THR ~ 20YEARS AGO PT INTERVENTIONS STRENGTH RIGHT HIP FLEXION/ABDUCTION ,FUNCTIONL STRENGTHENING ,STICK I T BAND US/CP TO HIP Subjective Subjective: This 82 y/o male presents to physical therapy with right greater trochanteric hip pain. Patient stumbled hip door and fell on right hip about ~ 6weeks on hip and seen x-rays which was negative for fracture. Patient ahs THR bilateral ~ 20years ago. Although ,surgery of right hip never was as good. Patient has no paresthesia/tingling. Medication: hydrocodone. Aggravating factors standing/walking ,unbale to squat and kneel. Patient is able to ascend/descend 12 steps with rail. Alleviating factors medication. Patient has been very inactive in winter but does woodworking and feels increased generalized fatigue. SOCIAL: VOCATION: retired Pain Right Hip: Pain Intensity (Out of 10): 4 Pain Intensity Range: 10 Objective Objective: POSTURE: mild forward posture ,hips/knees slightly flexed PALPATION: tender greater trochanteric ,I T band GAIT: patient ambulates with antalgic gait right side lateral sway to weakness of gluteus Medius MMT: quads 4/5 ,hamstrings 4/5 ,( peak force) hip flexion 12,6 ,hip abd 0 AROM: knee flexion 0-120 degrees supine flexion ,hip flexion 95 degrees , hip abduction 35 degrees STAIRS: one step at a time Balance/Special Test Scores Lower Extremity Functional Score: 29 Goals Goal 1:: Patient to be I with HEP for HIP Goal Time Frame: 4-6 Weeks Goal 2:: Patient to demonstrate 50 % improvement with less pain and improved function Goal Time Frame: 4-6 Weeks Goal 3:: Patient to improve gait pattern by 80% with less antalgic gait Goal Time Frame: 4-6 Weeks Goal 4:: Patient to improve peak force hip abduction/flexion by 10 # to improve gait Goal Time Frame: 4-6 Weeks Goal 5:: Patient to improve LFES score by 5-10 points to improve gait and QOL Goal Time Frame: 4-6 Weeks Rehabilitation Potential Physical Therapy Diagnosis: This patient has right hip weakness especially Glut Medius ,tender greater trochanteric tenderness ,decrease gait and function thus benefit from skilled PT Rehabilitation Potential: Good Anticipated Interventions Patient/Client Instruction: Educate patient on: Condition and Plan of Care For the Purpose of:: To decrease pain, To increase ROM, To improve muscle performance and motor function, To improve ability to perform ADL's, To increase tolerance to activity/condition/position, To improve ability of physical actions for home/community/work/leisure, To improve gait and locomotor functions, To improve health of tissue, To decrease soft tissue restriction, To increase flexibility/ROM, To improve endurance, To prevent re-injury and To improve tolerance to ADL's Therapeutic Exercise to Include: Strength training, Endurance training, Balance training, Flexibilty training and Gait and locomotor training Comment: HIP STRENGTHENING For the Purpose of:: To decrease pain, To increase ROM, To improve muscle performance and motor function, To improve ability to perform ADL's, To increase tolerance to activity/condition/position, To improve performance and independence with ADL's, To improve ability of physical actions for home/community/work/leisure, To improve health of tissue, To decrease soft tissue restriction, To increase flexibility/ROM and To prevent re-injury Cryotherapy (ice pack, ice massage): Yes Thermo therapy (hot pack): Yes Ultrasound (thermal/non thermal): Yes For the Purpose of:: To decrease pain, To increase ROM, To decrease soft tissue restriction and To increase flexibility/ROM Text: Thank you for the opportunity to evaluate your patient. For Medicare and Medicare HMO plans, please review the plan of care and approve it. It will need to be FAXED BACK to us at [phone] for Medicare purposes. For Medicare only, by signing this I certify the plan of care. Please let me know if there are questions or concerns regarding this plan of care. Physician Signatu re: Date:
--- NOTE | 2022-12-02 12:32 | HP.PTDCSUM ---
Discharge Summary D/C summary: It has been my pleasure to treat MARTIN AUGUSTINE referred by RACHID Rodriguez, with the diagnosis of TROCHANTERIC BURSITUS ,RIGHT HIP for a total of 9 visit(s). Discharge Date: 12/02/22 Please see the following information for a summary of their discharge status. Subjective Subjective: Doing well ready for D/C Pain Right Hip: Pain Intensity (Out of 10): 1 Overall Improvement % Improvement: 80 Objective Objective/Function: Objective: POSTURE: mild forward posture ,hips/knees slightly flexed PALPATION: tender greater trochanteric ,I T band GAIT: patient ambulates with antalgic gait right side lateral sway to weakness of gluteus Medius MMT: quads 4/5 ,hamstrings 4/5 ,( peak force) hip flexion 22.4 ,hip abd 13.8 AROM: knee flexion 0-120 degrees supine flexion ,hip flexion 100 degrees , hip abduction 35 degrees STAIRS: Alternating with rail Goals Goal 1:: Patient to be I with HEP for HIP Goal Progress: Goal Met Goal 2:: Patient to demonstrate 50 % improvement with less pain and improved function Goal Progress: Goal Met Goal 3:: Patient to improve gait pattern by 80% with less antalgic gait Goal Progress: Progressing Goal 4:: Patient to improve peak force hip abduction/flexion by 10 # to improve gait Goal Progress: Goal Met Goal 5:: Patient to improve LFES score by 5-10 points to improve gait and QOL Goal Progress: Goal Met Plan Plan: D/C TO GYM D/C Information Discharge Comments: GYM d/c sentence: If there are questions or concerns regarding this patient's physical therapy, please feel free to call me at [phone]. Thank you for the referral of this patient. Sincerely, Maco Moran, PT, Cert MDT, OCS Balance/Gait/Functional tests Balance/Special Test Scores Lower Extremity Functional Score: 55
== END 2022-12-02 13:42 | disposition home or self-care (01) ==
LOC: PT 12:00
PROVIDERS: PCP Internal Medicine; Referring Provider Physician Assistant; Visit Provider Physician Assistant
DX: M70.61 Trochanteric bursitis, right hip (principal)
CPT/HCPCS: 97110; 97162; 97530

== ENCOUNTER 2022-12-16 10:57 | Outpatient (RCR) | payer MEDICARE, SELFPAY ==
[2022-11-24 23:31] VITALS: BMI 30.4
[2022-12-16 11:05] LABS: INR Fingerstick 2.4; Prothrombin Time Fingerstick 26.1 SEC (11.7-14.9)
== END 2022-12-16 18:00 | disposition home or self-care (01) ==
LOC: LAB 10:57
PROVIDERS: Family Provider Internal Medicine; PCP Internal Medicine; Referring Provider Internal Medicine Cardiovascular Disease; Visit Provider Internal Medicine Cardiovascular Disease
DX: I48.0 Paroxysmal atrial fibrillation (principal); Z79.01 Long term (current) use of anticoagulants
CPT/HCPCS: 36416; 85610

== ENCOUNTER → 2023-01-07 | Outpatient (CLI) | payer MEDICARE, SELFPAY ==
--- NOTE | 2023-01-07 15:40 | RAD_ITS ---
EXAM: XR LEFT SHOULDER COMPLETE, 2 OR MORE VIEWS CLINICAL INDICATION: SHOULDER PAIN TECHNIQUE: Two or more views of the left shoulder. COMPARISON: No relevant prior studies available. FINDINGS: BONES/JOINTS: The total left shoulder prosthesis in anatomic alignment. There is minimal narrowing of the acromioclavicular joint. No acute fracture. No sclerotic or destructive changes observed. SOFT TISSUES: Unremarkable. No soft tissue swelling or gas. No radiopaque foreign body. RAD/Shoulder min 2 Views IMPRESSION: Left shoulder prosthesis in anatomic alignment. There is no acute osseous abnormality. There is minimal degenerative change in the acromioclavicular joint. Electronically Signed: Lewis Templeton MD at 19:07 EDT ,
--- NOTE | 2023-01-07 15:40 | RAD_ITS ---
EXAM: XR BILATERAL HIPS WITH PELVIS WHEN PERFORMED, 2 VIEWS CLINICAL INDICATION: HIP PAIN TECHNIQUE: Frontal view of the bilateral hips with pelvis when performed. COMPARISON: No relevant prior studies available. FINDINGS: BONES/JOINTS: There are bilateral hip replacements in anatomic alignment. There is no evidence of loosening. There is no acute osseous abnormality. No destructive or sclerotic lesions. Note that overlapping bowel shadows may however obscure fine detail. Sacroiliac joint is unremarkable. No widening of the pubic symphysis. SOFT TISSUES: Unremarkable. No soft tissue swelling or gas. RAD/Hips B/L min 2 views w/ Pelvis IMPRESSION: Bilateral hip prosthesis in anatomic alignment. No acute osseous abnormalities. Electronically Signed: Lewis Templeotn MD at 16:46 EDT ,
--- NOTE | 2023-01-07 15:40 | RAD_ITS ---
EXAM: XR RIGHT SHOULDER COMPLETE, 2 OR MORE VIEWS CLINICAL INDICATION: SHOULDER PAIN TECHNIQUE: Two or more views of the right shoulder. COMPARISON: No relevant prior studies available. FINDINGS: BONES/JOINTS: There is a total right shoulder prosthesis. There is minimal hypertrophy of the acromioclavicular joint. No acute fracture. No subluxation. Normal alignment. No sclerotic or destructive changes observed. SOFT TISSUES: Unremarkable. No soft tissue swelling or gas. No radiopaque foreign body. RAD/Shoulder min 2 Views IMPRESSION: Total right shoulder prosthesis in anatomic alignment. There are no acute osseous abnormalities. Electronically Signed: Lewis Templeton MD at 17:39 EDT ,
--- NOTE | 2023-01-07 15:40 | RAD_ITS ---
EXAM: XR LUMBOSACRAL SPINE, 2 OR 3 VIEWS CLINICAL INDICATION: LOW BACK PAIN TECHNIQUE: Frontal and lateral views of the lumbar spine and sacrum. COMPARISON: No relevant prior studies available. FINDINGS: VERTEBRAE: Is mild curvature of the lumbar spine. Preserved vertebral body height. No fracture. No spondylolisthesis. No significant facet arthropathy. DISC SPACES: There is multilevel degenerative change with disc space narrowing and osteophyte formation all levels. There is bony neural foraminal narrowing at L3-4 and to a greater extent L4-5 and L5-S1. GASTROINTESTINAL TRACT: Unremarkable as visualized. Included bowel gas pattern is non-obstructive. RAD/Lumbar Spine 2 or 3 Views IMPRESSION: Severe degenerative changes in the lower lumbar spine with disc space narrowing and bony neural foraminal narrowing. There is mild curvature with osteophyte formation. No acute osseous abnormalities. Electronically Signed: Lewis Templeton MD at 18:53 EDT ,
== END | disposition home or self-care (01) ==
LOC: RAD 15:28
PROVIDERS: PCP Internal Medicine; Referring Provider Anesthesiology Pain Medicine; Visit Provider Anesthesiology Pain Medicine
DX: M25.519 Pain in unspecified shoulder (principal); M25.559 Pain in unspecified hip
CPT/HCPCS: 72100; 73030; 73521

== ENCOUNTER → 2023-01-09 | Outpatient (CLI) | payer MEDICARE, SELFPAY ==
--- NOTE | 2023-01-09 13:41 | ST.MBS ---
Modified Barium Swallow Patient Information Study Date: 01/09/23 Study Time: 13:00 Direct Billable Minutes: 70 Total Minutes procedure & reportin Diagnosis: Dysphagia Referring Physician: Seda Merida Reason for Referral: Objective assessment of swallow function under fluoroscopy recommended by physician d/t patient report of small pills getting stuck in throat. Pt reports that he uses a bolus chaser to clear the pills. Also reported one instance a few weeks prior to this evaluation of a hot dog getting stuck. Medical History: Abnormal cardiovascular stress test; Anxiety; Arthritis; Back pain; Bilateral inguinal hernia, without obstruction or gangrene, recurrent; BiPAP (biphasic positive airway pressure) dependence; Breakdown (mechanical) of cardiac electrode, subsequent encounter; Cardiology follow-up encounter; Chronic cough; Chronic diastolic (congestive) heart failure; Complete heart block; COVID-19; Diverticulitis; DVT (deep venous thrombosis); Easy bruising; Essential (primary) hypertension; Gastric reflux; High cholesterol; History of echocardiogram; History of edema; History of pacemaker; History of steroid therapy; History of stress test;Hx of rheumatic fever; Hypercoagulable state; Hyperlipidemia; Hypertension; Migraine headache;Multiple premature ventricular complexes; Non-smoker; Nonobstructive atherosclerosis of coronary artery; Nonrheumatic aortic (valve) insufficiency; Nonrheumatic mitral (valve) insufficiency; Nonrheumatic tricuspid (valve) insufficiency; NSVT (nonsustained ventricular tachycardia) (02/2017); PEYMAN (obstructive sleep apnea); Post covid-19 condition, unspecified; Recurrent pulmonary emboli; Right bundle branch block (RBBB); Shortness of breath on exertion; Sick sinus syndrome; Sleep apnea; Wears glasses Current Diet Ordered: regular/thin Dentition: WNL Mental Status: WNL Respiratory Status: Oxygenating on Room Air Penetration-Aspiration Scale Penetration-Aspiration Scale: OBJECTIVE ASSESSMENT OF SWALLOW FUNCTION (QUANTITATIVE ? PER TRIAL): PENETRATION / ASPIRATION SCALE (MCKINNEY): 1 = does not enter airway 2 = enters airway/above vocal folds/ejected 3 = enters airway/above vocal folds/not ejected 4 = enters airway/contacts vocal folds/ejected 5 = enters airway/contacts vocal folds/not ejected 6 = enters airway/below vocal folds/ejected 7 = enters airway/below vocal folds/not ejected despite effort 8 = enters airway/below vocal folds/no effort VIDEOFLOROSCOPIC SCALE SCORE (MCKINNEY): Grade I = aspiration of material that has penetrated into the laryngeal vestibule, intact cough reflex Grade II = aspiration < 10 % of the bolus, intact cough reflex Grade III = aspiration of < 10 % of the bolus, reduced cough reflex or aspiration of > 10 % of the bolus, intact cough reflex Grade IV = aspiration of > 10 % of the bolus, reduced cough reflex Oral Phase Labial Seal: No Labial Escape Tongue Control During Bolus Hold: Cohesive bolus between tongue to palatal seal Bolus Preparation/Mastication: Timely and efficient chewing and mashing Bolus Transport/Lingual Motion: Brisk tongue motion Oral Residue: Trace residue lining oral structures Pharyngeal Phase Initiation of Pharyngeal Swallow: Bolus head in valleculae Soft Palate Elevation: No bolus between soft palate and pharyngeal wall Laryngeal Elevation: Comp. Superior move thyroid cart w/comp. apprx arytenoid cart-epig pet Anterior Hyoid Excursion: Complete anterior movement Epiglottic Movement: Complete inversion Laryngeal Vestibule Closure at Height of Swallow: Complete; no air/contrast in laryngeal vestibule Pharyngeal Stripping Wave: Present - complete Pharyngoesophageal Segment Opening: Complete distension and complete duration; no obstruction of flow Tongue Base Retraction: Trace column of contrast between tongue base & post. pharyngeal wall Pharyngeal Residue: Trace residue within or on pharyngeal structures Esophageal Phase Esophageal Clearance: Esophageal retention Diagnosis/Impression Diagnosis: Oropharyngeal swallow is grossly within functional limits Impression: The oral phase is WFL. The pharyngeal phase is marked by: -swallow onset initiated when leading edge of bolus reached the valleculae (WFL) -complete laryngeal vestibule closure consistently achieved across all trials w/ no penetration/aspiration -trace vallecular and pyriform residue retention noted post prandially The esophageal phase is marked by: -slowed esophageal clearance Recommendations Diet: Regular Textures and Thin Liquids Comment: Encourage continued use of a bolus chaser to assist w/ pharyngeal clearance of pills Recommend Repeat Modified Barium Swallow: No Need for Skilled Speech Therapy Services: No Education Completed: 1. Described result of evaluation. and 2. Pt understands evaluation & agrees with goals and treatment plan. Status Active ST Patient: Not Active Contact Information [facility] Speech Therapy:: Rosina Bahena M.A. [facility] Speech-Language Pathologist [place] [id number] [place] [address] [phone]
--- NOTE | 2023-01-09 14:28 | ST.MBS ---
Modified Barium Swallow Patient Information Study Date: 01/09/23 Study Time: 13:00 Direct Billable Minutes: 0 Total Minutes procedure & reportin Diagnosis: Dysphagia Referring Physician: Seda Merida Penetration-Aspiration Scale Penetration-Aspiration Scale: OBJECTIVE ASSESSMENT OF SWALLOW FUNCTION (QUANTITATIVE ? PER TRIAL): PENETRATION / ASPIRATION SCALE (MCKINNEY): 1 = does not enter airway 2 = enters airway/above vocal folds/ejected 3 = enters airway/above vocal folds/not ejected 4 = enters airway/contacts vocal folds/ejected 5 = enters airway/contacts vocal folds/not ejected 6 = enters airway/below vocal folds/ejected 7 = enters airway/below vocal folds/not ejected despite effort 8 = enters airway/below vocal folds/no effort VIDEOFLOROSCOPIC SCALE SCORE (MCKINNEY): Grade I = aspiration of material that has penetrated into the laryngeal vestibule, intact cough reflex Grade II = aspiration < 10 % of the bolus, intact cough reflex Grade III = aspiration of < 10 % of the bolus, reduced cough reflex or aspiration of > 10 % of the bolus, intact cough reflex Grade IV = aspiration of > 10 % of the bolus, reduced cough reflex Penetration-Aspiration Scale Score Thin Liquid via teaspoon: Result: 1= does not enter airway Thin Liquid via teaspoon Trial 2: Result: 1= does not enter airway Thin Liquid via single sip from cup: Result: 1= does not enter airway Thin Liquid via sequential sips via cup: Result: 1= does not enter airway Thin Liquid via single sip from straw: Result: 1= does not enter airway Pudding: Result: 1= does not enter airway Cookie: Result: 1= does not enter airway Thin Liquid via single sip from cup Trial 2: Result: 1= does not enter airway Barium Tablet: Result: 1= does not enter airway Diagnosis/Impression Diagnosis: Oropharyngeal swallow is grossly WFL. Impression: THIS REPORT WAS ENTERED AN ADDENDUM TO [facility] REPORT FILED EARLIER THIS SAME DATE. PO TRIALS AND PENETRATION-ASPIRATION SCALE SCORES WERE INADVERTENTLY OMITTED FROM INITIAL [facility] REPORT. Status Active ST Patient: Not Active
== END | disposition home or self-care (01) ==
LOC: RAD 12:37
PROVIDERS: PCP Internal Medicine; Referring Provider Internal Medicine; Visit Provider Internal Medicine
DX: R13.10 Dysphagia, unspecified (principal)
CPT/HCPCS: 74230; 92611

== ENCOUNTER 2023-01-15 11:13 | Outpatient (RCR) | payer MEDICARE, SELFPAY ==
[2022-12-25 21:41] VITALS: BMI 30.4
[2023-01-15 11:24] LABS: INR Fingerstick 2.4; Prothrombin Time Fingerstick 26.5 SEC (11.7-14.9)
== END 2023-01-15 18:00 | disposition home or self-care (01) ==
LOC: LAB 11:13
PROVIDERS: Family Provider Internal Medicine; PCP Internal Medicine; Referring Provider Internal Medicine Cardiovascular Disease; Visit Provider Internal Medicine Cardiovascular Disease
DX: I48.0 Paroxysmal atrial fibrillation (principal); Z79.01 Long term (current) use of anticoagulants; Z86.718 Personal history of other venous thrombosis and embolism
CPT/HCPCS: 36416; 85610

== ENCOUNTER 2023-02-11 11:18 | Outpatient (RCR) | payer MEDICARE, SELFPAY ==
[2023-01-25 00:11] VITALS: BMI 30.4
[2023-02-11 11:37] LABS: INR Fingerstick 2.7; Prothrombin Time Fingerstick 28.6 SEC (11.7-14.9)
== END 2023-02-11 18:00 | disposition home or self-care (01) ==
LOC: LAB 11:18
PROVIDERS: Family Provider Internal Medicine; PCP Internal Medicine; Referring Provider Internal Medicine Cardiovascular Disease; Visit Provider Internal Medicine Cardiovascular Disease
DX: I48.0 Paroxysmal atrial fibrillation (principal); Z79.01 Long term (current) use of anticoagulants; Z86.718 Personal history of other venous thrombosis and embolism
CPT/HCPCS: 36416; 85610

== ENCOUNTER → 2023-03-04 | Outpatient (CLI) | payer MEDICARE, SELFPAY ==
[2023-03-04 11:24] LABS: Amphetamine Urine VISTA NEGATIVE (<1000 ng/mL); Barbiturate Urine VISTA NEGATIVE (< 200 ng/mL); Benzodiazepine Urine VISTA NEGATIVE (< 200 ng/mL); Cocaine Urine VISTA NEGATIVE (< 300 ng/mL); Ecstacy Urine VISTA NEGATIVE (< 500 ng/mL); Methadone Urine VISTA NEGATIVE (< 300 ng/mL); PCP Urine VISTA NEGATIVE (< 25 ng/mL); THC Urine VISTA NEGATIVE (< 50 ng/mL); Vista UDS pH Range 5
== END | disposition home or self-care (01) ==
LOC: LAB 10:52
PROVIDERS: PCP Internal Medicine; Referring Provider Anesthesiology Pain Medicine; Visit Provider Anesthesiology Pain Medicine
DX: F11.20 Opioid dependence, uncomplicated (principal)
CPT/HCPCS: 80307

== ENCOUNTER 2023-03-16 08:38 | Outpatient (RCR) | payer MEDICARE, SELFPAY ==
[2023-02-24 22:36] VITALS: BMI 30.4
[2023-03-16 08:47] LABS: Prothrombin Time Fingerstick 21.7 SEC (11.7-14.9)
== END 2023-03-26 18:00 | disposition home or self-care (01) ==
LOC: LAB 08:38
PROVIDERS: Family Provider Internal Medicine; PCP Internal Medicine; Referring Provider Internal Medicine Cardiovascular Disease; Visit Provider Internal Medicine Cardiovascular Disease
DX: I48.0 Paroxysmal atrial fibrillation (principal); Z79.01 Long term (current) use of anticoagulants; Z86.718 Personal history of other venous thrombosis and embolism
CPT/HCPCS: 36416; 85610

== ENCOUNTER 2023-04-23 08:24 | Outpatient (RCR) | payer MEDICARE, SELFPAY ==
[2023-03-27 02:53] VITALS: BMI 30.4
[2023-04-23 08:34] LABS: INR Fingerstick 2.5; Prothrombin Time Fingerstick 26.8 SEC (11.7-14.9)
== END 2023-04-26 18:00 | disposition home or self-care (01) ==
LOC: LAB 08:24
PROVIDERS: Family Provider Internal Medicine; PCP Internal Medicine; Referring Provider Internal Medicine Cardiovascular Disease; Visit Provider Internal Medicine Cardiovascular Disease
DX: I48.0 Paroxysmal atrial fibrillation (principal); Z79.01 Long term (current) use of anticoagulants; Z86.718 Personal history of other venous thrombosis and embolism
CPT/HCPCS: 36416; 85610

== ENCOUNTER 2023-05-20 08:14 | Outpatient (RCR) | payer MEDICARE, SELFPAY ==
[2023-04-26 20:43] VITALS: BMI 30.4
[2023-05-20 08:25] LABS: INR Fingerstick 2.2; Prothrombin Time Fingerstick 23.8 SEC (11.7-14.9)
== END 2023-05-20 18:00 | disposition home or self-care (01) ==
LOC: LAB 08:14
PROVIDERS: Family Provider Internal Medicine; PCP Internal Medicine; Referring Provider Internal Medicine Cardiovascular Disease; Visit Provider Internal Medicine Cardiovascular Disease
DX: I48.0 Paroxysmal atrial fibrillation (principal); Z79.01 Long term (current) use of anticoagulants; Z86.718 Personal history of other venous thrombosis and embolism
CPT/HCPCS: 36416; 85610

== ENCOUNTER 2023-06-17 08:34 | Outpatient (RCR) | payer MEDICARE, SELFPAY ==
[2023-05-27 21:29] VITALS: BMI 30.4
[2023-06-17 08:41] LABS: INR Fingerstick 2.1
== END 2023-06-25 18:00 | disposition home or self-care (01) ==
LOC: LAB 08:34
PROVIDERS: Family Provider Internal Medicine; PCP Internal Medicine; Referring Provider Internal Medicine Cardiovascular Disease; Visit Provider Internal Medicine Cardiovascular Disease
DX: I48.0 Paroxysmal atrial fibrillation (principal); Z79.01 Long term (current) use of anticoagulants; Z86.718 Personal history of other venous thrombosis and embolism
CPT/HCPCS: 36416; 85610

== ENCOUNTER 2023-07-13 10:57 | Outpatient (RCR) | payer MEDICARE, SELFPAY ==
[2023-06-25 21:55] VITALS: BMI 30.4
[2023-07-13 12:06] LABS: Absolute Lymphocyte Count 0.88 X10^3/uL (0.83-4.51); Absolute Neutrophil Count 6.3 X10^3/uL (2.0-7.7); Basophil# 0.05 X10^3/uL; Basophil% 0.6 % (0-1); Eosinophil# 0.01 X10^3/uL; Eosinophils% 0.1 % (0-5); Hematocrit 41.8 % (40-54); Hemoglobin 13.9 g/dL (13.0-16.5); Lymphocyte # 0.88 X10^3/ul (0.83-4.51); Lymphocyte % 11.3 % (19-41); Mean Corp Hgb Conc 33.3 g/dL (32-36); Mean Corpuscular Hgb 30.9 pg (27.0-32.0); Mean Corpuscular Volume 92.9 fL (80-94); Mean Platelet Vol. 8.6 fl (6.2-12.0); Monocyte% 7.7 % (0-10); NRBC Flagged by Analyzer 0 % (0-5); Neutrophil # 6.26 X10^3/uL (2.7-7.7); Platelet Count 194 K/mm3 (150-450); RBC Distribution Width CV 15.4 % (11.6-14.6); RBC Distribution Width SD 53.1 fl (35.1-43.9); White Blood Count 7.8 K/mm3 (4.4-11.0)
[2023-07-13 12:11] LABS: International Normalized Ratio 2.5
[2023-07-13 12:50] LABS: Cholesterol 94 mg/dL (200); High Density Lipoprotein 36 mg/dL; Triglycerides 160 mg/dL; Very Low Density Lipoprotein 32 mg/dL (5-40)
[2023-07-13 12:51] LABS: ALB/GLOB Ratio 1.3 RATIO (0.9-2.4); AST(SGOT) 21 U/L (15-37); Alanine Aminotransfer ALT/SGPT 29 U/L (16-61); Albumin, Serum 3.5 g/dL (3.2-5.0); Alkaline Phosphatase 63 U/L (45-117); Anion Gap 3 (5-15); BUN 25 mg/dL (7-18); BUN/Creat Ratio 22.5 RATIO (10-20); Calcium,Total 8.6 mg/dL (8.5-10.1); Chloride 107 mmol/L (98-107); Creatinine, Serum 1.11 mg/dL (0.70-1.30); EST Glomerular Filtration Rate 67 mL/min (>60); Est Glom Filt Rate - Afr Amer 81 mL/min (>60); Globulin 2.6 g/dL (2.2-4.2); Glucose 95 mg/dL (74-106); Potassium 4.2 mmol/L (3.5-5.1); Protein, Total 6.1 g/dL (6.4-8.2); Sodium Level 140 mmol/L (136-145)
== END 2023-07-26 23:59 ==
LOC: BIMLAB 10:57
PROVIDERS: Nurse Practitioner Family; Family Provider Internal Medicine; PCP Internal Medicine; Referring Provider Internal Medicine Cardiovascular Disease; Visit Provider Internal Medicine Cardiovascular Disease
DX: I48.0 Paroxysmal atrial fibrillation (principal); Z79.01 Long term (current) use of anticoagulants; Z86.718 Personal history of other venous thrombosis and embolism; I47.20 Ventricular tachycardia, unspecified; E78.2 Mixed hyperlipidemia
CPT/HCPCS: 36415; 80053; 80061; 83735; 85025; 85610

== ENCOUNTER 2023-08-17 11:51 | Outpatient (RCR) | payer MEDICARE, SELFPAY ==
[2023-07-27 00:09] VITALS: BMI 30.4
[2023-08-17 12:02] LABS: INR Fingerstick 2.3; Prothrombin Time Fingerstick 24.1 SEC (11.7-14.9)
== END 2023-08-25 23:59 ==
LOC: BIMLAB 11:51
PROVIDERS: Family Provider Internal Medicine; PCP Internal Medicine; Referring Provider Internal Medicine Cardiovascular Disease; Visit Provider Internal Medicine Cardiovascular Disease
DX: I48.0 Paroxysmal atrial fibrillation (principal); Z79.01 Long term (current) use of anticoagulants; Z86.718 Personal history of other venous thrombosis and embolism
CPT/HCPCS: 36416; 85610

== ENCOUNTER 2023-09-16 09:11 | Outpatient (RCR) | payer MEDICARE, SELFPAY ==
[2023-08-26 00:12] VITALS: BMI 30.4
[2023-09-16 09:25] LABS: Prothrombin Time Fingerstick 21.4 SEC (11.7-14.9)
== END 2023-09-16 18:00 | disposition home or self-care (01) ==
LOC: LAB 09:11
PROVIDERS: Family Provider Internal Medicine; PCP Internal Medicine; Referring Provider Internal Medicine Cardiovascular Disease; Visit Provider Internal Medicine Cardiovascular Disease
DX: I48.0 Paroxysmal atrial fibrillation (principal); Z79.01 Long term (current) use of anticoagulants; Z86.718 Personal history of other venous thrombosis and embolism
CPT/HCPCS: 36416; 85610

== ENCOUNTER 2023-10-21 17:18 | Outpatient (RCR) | payer MEDICARE, SELFPAY ==
[2023-09-28 08:39] VITALS: BMI 30.4
[2023-10-15 09:28] LABS: INR Fingerstick 1.8; Prothrombin Time Fingerstick 19.2 SEC (11.7-14.9)
[2023-10-21 17:45] LABS: International Normalized Ratio 1.9; Prothrombin Time (Protime)PT. 21.8 SECONDS (11.7-14.9)
== END 2023-10-21 18:00 | disposition home or self-care (01) ==
LOC: LAB 17:18
PROVIDERS: Family Provider Internal Medicine; PCP Internal Medicine; Referring Provider Internal Medicine Cardiovascular Disease; Visit Provider Internal Medicine Cardiovascular Disease
DX: I48.0 Paroxysmal atrial fibrillation (principal); Z79.01 Long term (current) use of anticoagulants; Z86.718 Personal history of other venous thrombosis and embolism
CPT/HCPCS: 36415; 36416; 85610

== ENCOUNTER → 2023-10-22 | Outpatient (CLI) | payer MEDICARE, SELFPAY ==
--- NOTE | 2023-10-22 10:30 | RAD_ITS ---
INDICATION: OA EXAMINATION/TECHNIQUE: X-RAY - XR Hips Bilateral with Pelvis when performed; Min 5 Views COMPARISON: Pelvis and bilateral hip radiographs dated 01/07/2023. FINDINGS: PELVIC BONES: No displaced fracture, destructive or sclerotic lesions. Note that overlapping bowel shadows may however obscure fine detail. Sacroiliac joints are unremarkable. No widening of the pubic symphysis. There is stable degenerative disc disease in the visualized lumbosacral spine. HIPS: There are stable bilateral hip replacements in anatomic alignment. There is no evidence of loosening. There is no acute osseous abnormality. No displaced fracture. SOFT TISSUES: No soft tissue swelling or gas. RAD/Hips B/L min 2 views w/ Pelvis IMPRESSION: Stable bilateral hip prostheses in anatomic alignment. No evidence of displaced pelvic or hip fracture. Stable degenerative disc disease in the visualized lumbosacral spine. Electronically Signed: Sid Alvarez MD at 8:48 EDT ,
[2023-10-22 11:08] LABS: PSA,Total- Diagnostic 7.02 ng/mL (0.0-4.0)
== END | disposition home or self-care (01) ==
LOC: LAB 10:12
PROVIDERS: PCP Internal Medicine; Referring Provider Urology; Visit Provider Urology
DX: M16.0 Bilateral primary osteoarthritis of hip (principal); R97.20 Elevated prostate specific antigen [PSA]
CPT/HCPCS: 36415; 73521; 84153

== ENCOUNTER 2023-10-30 11:00 | Outpatient (RCR) | payer MEDICARE, SELFPAY ==
--- NOTE | 2023-10-01 11:57 | HP.PTEVAL ---
Patient's Visit Information Visit Information Visit Information: MARTIN AUGUSTINE is a 83 year old M referred to Physical Therapy by Dr. Yousif Brian MD with a diagnosis of Back pain and leg pain. Date of Evaluation: 10/01/23 Physical Therapist: José Olmos Visit Plan Frequency: 2x /Week Duration: 6 Weeks Plan: Continue with trial of lumbar flexion based exercises, hamstring stretching, and core/back/hip strengthening. Educate pt. on lifting mechanics as well. Subjective Subjective: Pt. is a 83 y.o. male who has been having back pain for many years when he orginally hurt his back playing basketball his senior year of college and has had back pain ever since. He notes the pain has just gotten worse lately and he also has intermittent pain down both of his legs. Pt. had x-ray last year of his lumbar spine which showed severe degenerative changes and foraminal narrowing of lumbar spine. Pt. denies any change in his bowel or bladder function or unexplained weight loss. Pt. has difficulty with standing/walking longer than 5 minutes, lifting things, pushing/pulling, occasionally sleeping, squatting, housework, and yard work. Pt. is retired. His goal with physical therapy is to have less pain with his normal activity. He has had previous physical therapy for multiple of things. Pt. denies any pain currently, at worst 9/10 and describes the pain as achy and just hurts. He will take Hydrocodone as needed. His PMH includes Pacemaker, blood clots, borderline diabetic, bilateral shoulder replacements, bilateral hip replacements, left knee replacement, three abdominal hernia surgeries, and ablation for lumbar spine. Pt. lives with his . His hobbies include woodworking, spending time with family, and yard work. Objective Objective: Observation- Mild forward flexed posture in standing Palpation- No tenderness to palpation Lumbar AROM flexion- mod restriction and no pain; extension- min restriction and mild low back pain; SB to left- min restriction and mild low back pain; SB to right- WNL and no pain; Lumbar rotations- WNL and no pain Hip PROM- WFL bilaterally Moderate tight hamstrings bilaterally Left hip strength flexion 4+/5, abduction 4/5, adduction 5/5, extension 4/5, knee flexion 5/5, knee extension 5/5, ankle DF 5/5, ankle PF 5/5 Right hip strength flexion 4/5, abduction 4/5, adduction 5/5, extension 4/5, knee flexion 5/5, knee extension 5/5, ankle DF 5/5, ankle PF 5/5 Special tests- Straight leg raise [-], Well's leg raise [-] Gait- Pt. ambulates with no gait deviations. Balance/Special Test Scores Oswestry Low Back Score: 22 Goals Goal 1:: Pt. will be able to stand/walk for at least 15 minutes with pain < 3/10. Goal Time Frame: 4-6 Weeks Goal 2:: Pt. will be able to lift at least 30# with proper body mechanics and no pain. Goal Time Frame: 4-6 Weeks Goal 3:: Pt. will be able to sleep a full night with no pain. Goal Time Frame: 4-6 Weeks Goal 4:: Pt. will rate pain at worst at 3/10 with ADL's. Goal Time Frame: 4-6 Weeks Goal 5:: Pt. will improve modified Oswestry disability < 35% disability in order to improve ADL's. Goal Time Frame: 4-6 Weeks Rehabilitation Potential Physical Therapy Diagnosis: Decreased lumbar ROM, LE flexibility, core/back/hip weakness, difficulty walking, and pain Rehabilitation Potential: Good Anticipated Interventions Patient/Client Instruction: Educate patient on: Condition and Plan of Care For the Purpose of:: To decrease pain, To improve ability to perform ADL's, To improve performance and independence with ADL's, To improve gait and locomotor functions, To assume or resume ADL's and To improve tolerance to ADL's Therapeutic Exercise to Include: Strength training, Body mechanics, Postural training, Active ROM, Dynamic Lumbar Stabilization and Jagdeep Exercises Comment: Continue with trial of lumbar flexion based exercises, hamstring stretching, core, back, and hip strengthening. Educate on lifting mechanics as well. For the Purpose of:: To decrease pain, To increase ROM, To improve ability to perform ADL's, To improve performance and independence with ADL's, To increase flexibility/ROM and To improve tolerance to ADL's Functional Training to Include: ADL Training For the Purpose of:: To decrease pain, To improve ability to perform ADL's, To improve performance and independence with ADL's, To assume or resume ADL's and To improve tolerance to ADL's Manual Therapy Techniques to Include: Mobilization and Soft tissue mobilization For the Purpose of:: To decrease pain, To increase ROM, To improve ability to perform ADL's, To improve performance and independence with ADL's, To increase flexibility/ROM, To assume or resume ADL's and To improve tolerance to ADL's Text: Thank you for the opportunity to evaluate your patient. For Medicare and Medicare HMO plans, please review the plan of care and approve it. It will need to be FAXED BACK to us at [phone] for Medicare purposes. For Medicare only, by signing this I certify the plan of care. Please let me know if there are questions or concerns regarding this plan of care. Physician Signature: Date:
--- NOTE | 2023-10-30 17:14 | HP.PTDCSUM ---
Discharge Summary D/C summary: It has been my pleasure to treat MARTIN AUGUSTINE referred by Dr. Yousif Brian MD, with the diagnosis of Back pain and leg pain for a total of 10 visit(s). Discharge Date: Please see the following information for a summary of their discharge status. Subjective Subjective: Pt. reports increased L hip pain, which has not changed much. Mornings are pretty painful. He reports this feels different then his back pain. Pain Back: Pain Intensity (Out of 10): 7 Overall Improvement % Improvement: 25 Objective Objective/Function: ROM: R hip and L hip: normal, tightness noted in HS. LUMBAR SPINE: flexion min loss increase NW, ext mod loss NE, SB R mod loss increase NW, SB L mod loss increase NW, rotation mod loss bilat increase NW. - SLR, - slump test MMT: Pt. has good strength throughout BLEs. Poor core strength. Pt. reports overall his SI region is pretty painful and in some cases a little bit worse. I did try some extension exsercises which were a little bit better today. He desires to work on these by him self at this point in time. Pt. did have some relief with ELISHA. I gave him some extension exercises over table. Pt. reports feeling better. He reports being unable to lie on stomach. Goals Goal 1:: Pt. will be able to stand/walk for at least 15 minutes with pain < 3/10. Goal Progress: Progressing Goal 2:: Pt. will be able to lift at least 30# with proper body mechanics and no pain. Goal Progress: Progressing Goal 3:: Pt. will be able to sleep a full night with no pain. Goal Progress: Goal Met Goal 4:: Pt. will rate pain at worst at 3/10 with ADL's. Goal Progress: Not Progressing Goal 5:: Pt. will improve modified Oswestry disability < 35% disability in order to improve ADL's. Goal Progress: Not Progressing Plan Plan: Pt. to be DC from PT at this point in time. He is going to try some light trunk extension as this was a little bit helpful. D/C Information d/c sentence: If there are questions or concerns regarding this patient's physical therapy, please feel free to call me at [phone]. Thank you for the referral of this patient. Sincerely, Guille L Sipos, DPT Balance/Gait/Functional tests Balance/Special Test Scores Oswestry Low Back Score: 22 Improvement % Improvement: 25
== END 2023-10-30 19:00 | disposition home or self-care (01) ==
LOC: PT 11:00
PROVIDERS: PCP Internal Medicine; Referring Provider Anesthesiology Pain Medicine; Visit Provider Anesthesiology Pain Medicine
DX: M54.9 Dorsalgia, unspecified (principal); M79.606 Pain in leg, unspecified
CPT/HCPCS: 97110; 97162; 97530

== ENCOUNTER 2023-11-18 11:07 | Outpatient (RCR) | payer MEDICARE, SELFPAY ==
[2023-10-25 22:10] VITALS: BMI 30.4
[2023-11-18 11:47] LABS: INR Fingerstick 2.1; Prothrombin Time Fingerstick 22.1 SEC (11.7-14.9)
[2023-11-18 12:13] LABS: Amphetamine Urine VISTA NEGATIVE (<1000 ng/mL); Barbiturate Urine VISTA NEGATIVE (< 200 ng/mL); Benzodiazepine Urine VISTA NEGATIVE (< 200 ng/mL); Cocaine Urine VISTA NEGATIVE (< 300 ng/mL); Ecstacy Urine VISTA NEGATIVE (< 500 ng/mL); Methadone Urine VISTA NEGATIVE (< 300 ng/mL); PCP Urine VISTA NEGATIVE (< 25 ng/mL); THC Urine VISTA NEGATIVE (< 50 ng/mL); Vista UDS pH Range 5
== END 2023-11-25 18:00 | disposition home or self-care (01) ==
LOC: LAB 11:07
PROVIDERS: Family Provider Internal Medicine; PCP Internal Medicine; Referring Provider Internal Medicine Cardiovascular Disease; Visit Provider Internal Medicine Cardiovascular Disease
DX: I48.0 Paroxysmal atrial fibrillation (principal); Z79.01 Long term (current) use of anticoagulants; Z86.718 Personal history of other venous thrombosis and embolism; F11.20 Opioid dependence, uncomplicated
CPT/HCPCS: 36416; 80307; 85610

== ENCOUNTER → 2023-12-07 | Outpatient (CLI) | payer MEDICARE, SELFPAY ==
--- NOTE | 2023-12-07 10:50 | ECHOD_ITS ---
Reason For Study: ARRHYTHMIA Procedure This was a 2D Doppler, Color Flow transthoracic echocardiogram. Exam performed in department. Left Ventricle Normal LV size. Moderate concentric left ventricular hypertrophy. Left ventricular systolic function is normal. The left ventricular ejection fraction is 65 %. Stage 1 diastolic dysfunction. No regional wall motion abnormalities noted. Right Ventricle Normal RV size. ICD or pacer leads identified within the right ventricle. The right ventricle is normal in size, function, and thickness. Atria Normal left atrium. Normal right atrium. Mitral Valve Normal mitral valve. Tricuspid Valve Normal tricuspid valve. Mild tricuspid valve insufficiency. Pulmonary artery systolic pressure is 68 mmHg. Aortic Valve Trisinus/trileaflet aortic valve. Mild focal aortic valve calcification. Pulmonic Valve Normal pulmonic valve. Great Vessels Normal aortic root. The pulmonary artery is normal size. Normal inferior vena cava. Pericardium/Pleural No pericardial effusion. MMode/2D Measurements & Calculations LVIDd: 4.7 cm IVSd: 1.6 cm LVOT diam: 2.3 cm LVIDs: 2.8 cm LVPWd: 1.3 cm LVOT area: 4.2 cm2 RVDd: 4.3 cm FS: 41.7 % Ao root diam: 4.3 cm LAV(MOD-bp): 66.7 ml LVAd ap4: 27.7 cm2 LAV(MOD-bp) Indexed: 28.6 ml/m2 LVLd ap4: 8.3 cm LAV(MOD-sp2): 69.8 ml EDV(MOD-sp4): 76.0 ml LAV(MOD-sp4): 59.5 ml EDV(sp4-el): 78.1 ml LVAs ap4: 14.6 cm2 LVLs ap4: 7.2 cm ESV(MOD-sp4): 25.9 ml ESV(sp4-el): 24.9 ml EF(MOD-sp4): 66.0 % EF(sp4-el): 68.1 % LVAd ap2: 28.0 cm2 SV(MOD-sp4): 50.2 ml SV(MOD-sp2): 45.9 ml LVLd ap2: 8.4 cm EDV(MOD-sp2): 73.2 ml EDV(sp2-el): 78.6 ml LVAs ap2: 15.8 cm2 LVLs ap2: 7.5 cm ESV(MOD-sp2): 27.3 ml ESV(sp2-el): 28.2 ml EF(MOD-sp2): 62.7 % SV(sp4-el): 53.2 ml LA dimension(2D): 4.4 cm LA A4 area: 21.4 cm2 RA A4 area: 19.2 cm2 TAPSE: 2.1 cm Time Measurements MV dec time: 0.24 sec Doppler Measurements & Calculations MV E max devyn: 47.3 cm/sec Lat Peak E' Devyn: 8.6 cm/sec Med Peak E' Devyn: 8.5 cm/sec MV A max devyn: 75.9 cm/sec E/E' lat: 5.5 E/E' med: 5.6 MV E/A: 0.62 Ao V2 max: 191.1 cm/sec AI max devyn: 462.4 cm/sec MV dec slope: 193.4 cm/sec2 Ao max P.6 mmHg AI max P.5 mmHg Ao V2 mean: 143.3 cm/sec Ao mean P.8 mmHg AI dec slope: 219.4 cm/sec2 Ao V2 VTI: 36.0 cm AI P1/2t: 617.2 msec AV (velocity ratio): 0.60 TAWANA(I,D): 2.5 cm2 TAWANA(V,D): 2.5 cm2 LV V1 max: 115.4 cm/sec SV(LVOT): 90.7 ml PA V2 max: 60.2 cm/sec LV V1 max P.3 mmHg PA max PG (full): 0.41 mmHg LV V1 mean P.3 mmHg LV V1 mean: 88.2 cm/sec LV V1 VTI: 21.7 cm TR max devyn: 245.1 cm/sec TR max P.0 mmHg ECHO/Echo Complete Interpretation Summary Normal LV size. Moderate concentric left ventricular hypertrophy. The left ventricular ejection fraction is 65 %. Left ventricular systolic function is normal. Stage 1 diastolic dysfunction. Pulmonary artery systolic pressure is 68 mmHg. Ordering Physician: Low Henry Referring Physician: Low Henry MD Performed By: Hina Echeverria RDCS
== END | disposition home or self-care (01) ==
LOC: CVS 10:50
PROVIDERS: PCP Internal Medicine; Referring Provider Internal Medicine Cardiovascular Disease; Visit Provider Internal Medicine Cardiovascular Disease
DX: I11.0 Hypertensive heart disease with heart failure (principal); I50.32 Chronic diastolic (congestive) heart failure; Z95.0 Presence of cardiac pacemaker
CPT/HCPCS: 93306

== ENCOUNTER 2023-12-23 08:38 | Outpatient (RCR) | payer MEDICARE, SELFPAY ==
[2023-11-25 20:06] VITALS: BMI 30.4
[2023-12-23 08:53] LABS: INR Fingerstick 1.9; Prothrombin Time Fingerstick 20.3 SEC (11.7-14.9)
== END 2023-12-23 18:00 | disposition home or self-care (01) ==
LOC: LAB 08:38
PROVIDERS: Family Provider Internal Medicine; PCP Internal Medicine; Referring Provider Internal Medicine Cardiovascular Disease; Visit Provider Internal Medicine Cardiovascular Disease
DX: I48.0 Paroxysmal atrial fibrillation (principal); Z79.01 Long term (current) use of anticoagulants; Z86.718 Personal history of other venous thrombosis and embolism
CPT/HCPCS: 36416; 85610

== ENCOUNTER → 2024-01-12 | Outpatient (CLI) | payer MEDICARE, SELFPAY ==
[2024-01-12 15:29] LABS: Absolute Lymphocyte Count 0.89 X10^3/uL (0.83-4.51); Absolute Neutrophil Count 5.2 X10^3/uL (2.0-7.7); Basophil# 0.03 X10^3/uL; Basophil% 0.5 % (0-1); Eosinophil# 0.02 X10^3/uL; Eosinophils% 0.3 % (0-5); Hematocrit 42.3 % (40-54); Hemoglobin 14.2 g/dL (13.0-16.5); Lymphocyte # 0.89 X10^3/ul (0.83-4.51); Lymphocyte % 13.4 % (19-41); Mean Corp Hgb Conc 33.6 g/dL (32-36); Mean Corpuscular Hgb 31.1 pg (27.0-32.0); Mean Corpuscular Volume 92.6 fL (80-94); Mean Platelet Vol. 8.9 fl (6.2-12.0); Monocyte# 0.51 X10^3/uL; Monocyte% 7.7 % (0-10); NRBC Flagged by Analyzer 0 % (0-5); Neutrophil # 5.16 X10^3/uL (2.7-7.7); Neutrophil % 77.8 % (47-70); Platelet Count 182 K/mm3 (150-450); RBC Distribution Width CV 15.3 % (11.6-14.6); RBC Distribution Width SD 52.3 fl (35.1-43.9); Red Blood Count 4.57 M/mm3 (4.6-6.2); White Blood Count 6.6 K/mm3 (4.4-11.0)
[2024-01-12 16:08] LABS: Anion Gap 6 (5-15); BUN 24 mg/dL (7-18); BUN/Creat Ratio 20.7 RATIO (10-20); Calcium,Total 9.3 mg/dL (8.5-10.1); Chloride 107 mmol/L (98-107); Creatinine, Serum 1.16 mg/dL (0.70-1.30); EST Glomerular Filtration Rate 64 mL/min (>60); Est Glom Filt Rate - Afr Amer 77 mL/min (>60); Glucose 101 mg/dL (74-106); Sodium Level 138 mmol/L (136-145)
[2024-01-12 16:16] LABS: AST(SGOT) 18 U/L (15-37); Alanine Aminotransfer ALT/SGPT 20 U/L (16-61); Albumin, Serum 3.5 g/dL (3.2-5.0); Alkaline Phosphatase 53 U/L (45-117); Bilirubin, Direct 0.31 mg/dL (0.00-0.30); Cholesterol 108 mg/dL (200); Globulin 2.8 g/dL (2.2-4.2); High Density Lipoprotein 33 mg/dL; Protein, Total 6.3 g/dL (6.4-8.2); Triglycerides 215 mg/dL; Very Low Density Lipoprotein 43 mg/dL (5-40)
== END | disposition home or self-care (01) ==
LOC: BIMLAB 11:28
PROVIDERS: Nurse Practitioner Family; PCP Internal Medicine; Visit Provider Nurse Practitioner
DX: E78.2 Mixed hyperlipidemia (principal); I48.0 Paroxysmal atrial fibrillation; I10 Essential (primary) hypertension
CPT/HCPCS: 36415; 80048; 80061; 80076; 85025

== ENCOUNTER → 2024-01-14 | Outpatient (CLI) | payer MEDICARE, SELFPAY ==
[2024-01-14 10:59] LABS: Amphetamine Urine VISTA NEGATIVE (<1000 ng/mL); Barbiturate Urine VISTA NEGATIVE (< 200 ng/mL); Benzodiazepine Urine VISTA NEGATIVE (< 200 ng/mL); Cocaine Urine VISTA NEGATIVE (< 300 ng/mL); Ecstacy Urine VISTA NEGATIVE (< 500 ng/mL); Methadone Urine VISTA NEGATIVE (< 300 ng/mL); PCP Urine VISTA NEGATIVE (< 25 ng/mL); THC Urine VISTA NEGATIVE (< 50 ng/mL); Vista UDS pH Range 4
== END | disposition home or self-care (01) ==
LOC: LAB 09:45
PROVIDERS: PCP Internal Medicine; Referring Provider Anesthesiology Pain Medicine; Visit Provider Anesthesiology Pain Medicine
DX: F11.20 Opioid dependence, uncomplicated (principal)
CPT/HCPCS: 80307

== ENCOUNTER 2024-01-21 08:48 | Outpatient (RCR) | payer MEDICARE, SELFPAY ==
[2023-12-27 01:53] VITALS: BMI 30.4
[2024-01-21 09:02] LABS: INR Fingerstick 2.1; Prothrombin Time Fingerstick 21.9 SEC (11.7-14.9)
== END 2024-01-21 18:00 | disposition home or self-care (01) ==
LOC: LAB 08:48
PROVIDERS: Family Provider Internal Medicine; PCP Internal Medicine; Referring Provider Internal Medicine Cardiovascular Disease; Visit Provider Internal Medicine Cardiovascular Disease
DX: Z79.01 Long term (current) use of anticoagulants
CPT/HCPCS: 36416; 85610

== ENCOUNTER 2024-02-19 08:47 | Outpatient (RCR) | payer MEDICARE, SELFPAY ==
[2024-01-25 22:47] VITALS: BMI 30.4
[2024-02-19 09:41] LABS: Anion Gap 6 (5-15); BUN 27 mg/dL (7-18); BUN/Creat Ratio 20.3 RATIO (10-20); Calcium,Total 9.1 mg/dL (8.5-10.1); Chloride 106 mmol/L (98-107); Creatinine, Serum 1.33 mg/dL (0.70-1.30); EST Glomerular Filtration Rate 55 mL/min (>60); Est Glom Filt Rate - Afr Amer 66 mL/min (>60); Glucose 108 mg/dL (74-106); Potassium 3.5 mmol/L (3.5-5.1); Sodium Level 140 mmol/L (136-145)
[2024-02-19 09:43] LABS: International Normalized Ratio 3.2; Prothrombin Time (Protime)PT. 32.1 SECONDS (11.7-14.9)
== END 2024-02-19 18:00 | disposition home or self-care (01) ==
LOC: LAB 08:47
PROVIDERS: Nurse Practitioner Family; Family Provider Internal Medicine; PCP Internal Medicine; Referring Provider Internal Medicine Cardiovascular Disease; Visit Provider Internal Medicine Cardiovascular Disease
DX: I48.0 Paroxysmal atrial fibrillation (principal); Z79.01 Long term (current) use of anticoagulants; Z86.718 Personal history of other venous thrombosis and embolism; E78.2 Mixed hyperlipidemia; I11.0 Hypertensive heart disease with heart failure; I50.32 Chronic diastolic (congestive) heart failure
CPT/HCPCS: 36415; 80048; 85610

== ENCOUNTER 2024-03-17 10:54 | Outpatient (RCR) | payer MEDICARE, SELFPAY ==
[2024-02-25 20:43] VITALS: BMI 30.4
[2024-03-17 11:02] LABS: INR Fingerstick 3.1; Prothrombin Time Fingerstick 31.7 SEC (11.7-14.9)
== END 2024-03-26 18:00 | disposition home or self-care (01) ==
LOC: LAB 10:54
PROVIDERS: Family Provider Internal Medicine; PCP Internal Medicine; Referring Provider Internal Medicine Cardiovascular Disease; Visit Provider Internal Medicine Cardiovascular Disease
DX: Z79.01 Long term (current) use of anticoagulants
CPT/HCPCS: 36416; 85610

== ENCOUNTER 2024-04-22 11:04 | Outpatient (RCR) | payer MEDICARE, SELFPAY ==
[2024-03-26 22:25] VITALS: BMI 30.4
[2024-04-14 10:53] LABS: INR Fingerstick 3.8; Prothrombin Time Fingerstick 37.8 SEC (11.7-14.9)
[2024-04-22 11:21] LABS: INR Fingerstick 2.9; Prothrombin Time Fingerstick 30.5 SEC (11.7-14.9)
== END 2024-04-22 18:00 | disposition home or self-care (01) ==
LOC: LAB 11:04
PROVIDERS: Family Provider Internal Medicine; PCP Internal Medicine; Referring Provider Internal Medicine Cardiovascular Disease; Visit Provider Internal Medicine Cardiovascular Disease
DX: I48.0 Paroxysmal atrial fibrillation (principal); Z79.01 Long term (current) use of anticoagulants; Z86.718 Personal history of other venous thrombosis and embolism
CPT/HCPCS: 36416; 85610

== ENCOUNTER 2024-05-19 12:29 | Outpatient (RCR) | payer MEDICARE, SELFPAY ==
[2024-04-27 03:40] VITALS: BMI 30.4
[2024-05-23 12:04] LABS: INR Fingerstick 2.4; Prothrombin Time Fingerstick 24.7 SEC (11.7-14.9)
== END 2024-05-19 18:00 | disposition home or self-care (01) ==
LOC: LAB 12:29
PROVIDERS: Family Provider Internal Medicine; PCP Internal Medicine; Referring Provider Internal Medicine Cardiovascular Disease; Visit Provider Internal Medicine Cardiovascular Disease
DX: Z79.01 Long term (current) use of anticoagulants
CPT/HCPCS: 36416; 85610

== ENCOUNTER 2024-06-09 10:42 | Outpatient (RCR) | payer MEDICARE, SELFPAY ==
[2024-05-27 20:56] VITALS: BMI 30.4
[2024-06-09 11:39] LABS: Basophil# 0.03 X10^3/uL; Basophil% 0.4 % (0-1); Eosinophil# 0.01 X10^3/uL; Eosinophils% 0.1 % (0-5); Hematocrit 42.3 % (40-54); Hemoglobin 14.4 g/dL (13.0-16.5); Lymphocyte % 22.2 % (19-41); Mean Corpuscular Hgb 31.2 pg (27.0-32.0); Mean Corpuscular Volume 91.6 fL (80-94); Monocyte# 0.58 X10^3/uL; Monocyte% 8.1 % (0-10); NRBC Flagged by Analyzer 0 % (0-5); Neutrophil # 4.96 X10^3/uL (2.7-7.7); Neutrophil % 68.9 % (47-70); Platelet Count 196 K/mm3 (150-450); RBC Distribution Width CV 15.4 % (11.6-14.6); RBC Distribution Width SD 51.8 fl (35.1-43.9); Red Blood Count 4.62 M/mm3 (4.6-6.2); White Blood Count 7.2 K/mm3 (4.4-11.0)
[2024-06-09 11:52] LABS: International Normalized Ratio 2.6; Prothrombin Time (Protime)PT. 28.7 SECONDS (11.7-14.9)
[2024-06-09 12:06] LABS: BNP,B-Type NATRIURETIC PEPTIDE 147.6 pg/mL (0-100)
[2024-06-09 12:07] LABS: Anion Gap 7 (5-15); BUN 32 mg/dL (7-18); BUN/Creat Ratio 21.8 RATIO (10-20); Calcium,Total 8.7 mg/dL (8.5-10.1); Chloride 109 mmol/L (98-107); Creatinine, Serum 1.47 mg/dL (0.70-1.30); EST Glomerular Filtration Rate 49 mL/min (>60); Est Glom Filt Rate - Afr Amer 59 mL/min (>60); Glucose 122 mg/dL (74-106); Potassium 3.7 mmol/L (3.5-5.1); Sodium Level 141 mmol/L (136-145)
== END 2024-06-24 18:00 | disposition home or self-care (01) ==
LOC: LAB 10:42
PROVIDERS: Nurse Practitioner Family; Family Provider Internal Medicine; PCP Internal Medicine; Referring Provider Internal Medicine Cardiovascular Disease; Visit Provider Internal Medicine Cardiovascular Disease
DX: I48.0 Paroxysmal atrial fibrillation (principal); Z79.01 Long term (current) use of anticoagulants; Z86.718 Personal history of other venous thrombosis and embolism
CPT/HCPCS: 36415; 80048; 83880; 85025; 85610

== ENCOUNTER → 2024-06-09 | Outpatient (CLI) | payer MEDICARE, SELFPAY ==
--- NOTE | 2024-06-09 11:05 | RAD_ITS ---
PROCEDURE: CHEST PA AND LATERAL REASON FOR EXAM: Increased shortness of breath upon exertion. TECHNIQUE: Frontal and lateral views of the chest. COMPARISON: Chest x-ray of 03/05/2022. RAD/Chest PA and Lateral IMPRESSION: Left thoracic transvenous pacemaker with atrial ventricular leads again noted. A calcified and tortuous aorta is again noted. No evidence of cardiomegaly A mild degree of interstitial pulmonary edema is likely present, superimposed u heidi underlying chronic lung changes No significant pleural effusion is seen. No pneumothorax is evident. No acute osseous process is identified. Reading Location: [id number]
== END | disposition home or self-care (01) ==
LOC: RAD 11:02
PROVIDERS: PCP Internal Medicine; Referring Provider Nurse Practitioner Family; Visit Provider Nurse Practitioner Family
DX: R06.09 Other forms of dyspnea (principal); I50.32 Chronic diastolic (congestive) heart failure
CPT/HCPCS: 71046

== ENCOUNTER → 2024-06-24 | Outpatient (CLI) | payer MEDICARE, SELFPAY ==
--- NOTE | 2024-06-25 11:27 | STRESSREP_ITS ---
Stress Test Report Date: 06/24/2024 Procedure: Pharmacologic stress nuclear imaging study Indications: CAD, dyspnea on exertion Consent: Per the patient Procedure: The patient underwent pharmacologic (Regadenoson) evaluation with a peak heart rate of 73 beats per minute (53%predicted maximal heart rate) and a peak blood pressure of 110/62 mmHg. The baseline ECG demonstrated ventricular paced rhythm. EKG during lexiscan infusion revealed no significant ischemic changes. EKG post infusion revealed no significant ischemic changes [There were no cardiac dysrhythmias pretest, during pharmacologic infusion, or recovery]. [There was no complaint of chest discomfort during pharmacologic infusion or recovery]. The examination was discontinued secondary to completion of protocol. Impression: 1. Lexiscan stress test test is negative for Lexiscan infusion induced EKG changes of ischemia. 2. Lexiscan stress test test is negative for Lexiscan infusion induced chest pain. 3. Results of the nuclear portion of the test is as below Myocardial perfusion imaging study: Technique: The patient was injected with 15 millicuries of technetium 99m Cardiolite and subsequently rest SPECT Cardiolite nuclear imaging was obtained in the horizontal long, vertical long, and short axis views. The patient underwent pharmacologic [Regadenoson 0.4mg] evaluation. Please see above for details. The patient was injected with 45 millicuries of technetium 99m Cardiolite and subsequently stress SPECT Cardiolite nuclear imaging was obtained in the horizontal long, vertical long, and short axis views. A gated Cardiolite study at peak stress was obtained. Interpretation: Rest and stress SPECT Cardiolite nuclear imaging status post realignment, normalization, and attenuation correction demonstrate no evidence of significant ischemia. There is mild fixed defect in the apex suggestive of prior apical myocardial infarction. Gated images reveal mild apical hypokinesis. The reported LVEF is 62%. Impression: 1. There is no evidence of significant ischemia. Possible prior apical myocardial infarction. 2. Estimated ejection fraction is 62%. This note was generated with [employer] software. It may contain incorrect words, spelling, and punctuation that were not noted in checking the note before signing.
== END | disposition home or self-care (01) ==
LOC: CVS 06:18
PROVIDERS: PCP Internal Medicine; Referring Provider Nurse Practitioner Family; Visit Provider Nurse Practitioner Family
DX: R06.09 Other forms of dyspnea (principal); I50.32 Chronic diastolic (congestive) heart failure; I11.0 Hypertensive heart disease with heart failure; R53.83 Other fatigue; I25.10 Atherosclerotic heart disease of native coronary artery without angina pectoris; I49.3 Ventricular premature depolarization; Z95.0 Presence of cardiac pacemaker; E78.2 Mixed hyperlipidemia
CPT/HCPCS: 78452; 93017; A9500; A4216; J2785

== ENCOUNTER 2024-07-11 15:44 | Emergency (ER) | payer MEDICARE, SELFPAY ==
[2024-07-11 15:45] VITALS: BP 154/77; PULSE 68; RESP 15; TEMP 36.8; O2SAT 95; BMI 30.9
[2024-07-11 17:45] VITALS: BP 168/72; PULSE 75; RESP 18; O2SAT 95
[2024-07-11 18:17] LABS: Absolute Lymphocyte Count 0.88 X10^3/uL (0.83-4.51); Absolute Neutrophil Count 8.3 X10^3/uL (2.0-7.7); Basophil# 0.04 X10^3/uL; Basophil% 0.4 % (0-1); Eosinophil# 0.01 X10^3/uL; Eosinophils% 0.1 % (0-5); Hematocrit 45.2 % (40-54); Hemoglobin 15.6 g/dL (13.0-16.5); Lymphocyte # 0.88 X10^3/ul (0.83-4.51); Mean Corp Hgb Conc 34.5 g/dL (32-36); Mean Corpuscular Hgb 31.8 pg (27.0-32.0); Mean Corpuscular Volume 92.2 fL (80-94); Mean Platelet Vol. 8.4 fl (6.2-12.0); Monocyte# 0.59 X10^3/uL; NRBC Flagged by Analyzer 0 % (0-5); Neutrophil # 8.25 X10^3/uL (2.7-7.7); Neutrophil % 84.2 % (47-70); Platelet Count 193 K/mm3 (150-450); RBC Distribution Width CV 15.8 % (11.6-14.6); RBC Distribution Width SD 53.1 fl (35.1-43.9); White Blood Count 9.8 K/mm3 (4.4-11.0)
[2024-07-11 18:51] VITALS: BP 145/78; PULSE 77; RESP 18; O2SAT 98
[2024-07-11 18:58] LABS: Bacteria 0 SEEN /hpf (None Seen); Mucous, Urine 0 SEEN /hpf (<or=2+); Squamous Epithelial Cells - UA 0 SEEN /hpf (0-5)
[2024-07-11 19:31] LABS: Color, Urine Yellow (Yellow); Glucose, Dipstick 250 mg/dl (Normal); Ketone-Dipstick Negative (Negative); Leukocyte Esterase-Dipstick Negative /ul (Negative); Nitrite-Dipstick Negative (Negative); Occult Blood-Urine Negative /ul (Negative); Protein-Dipstick 15 mg/dl (Negative); Specific Gravity, Urine 1.005 (1.002-1.030); Urine Bilirubin Dipstick Negative (Negative); Urine Clarity Clear (Clear); Urine Urobilinogen Normal (Normal)
[2024-07-11 19:41] LABS: Red Blood Cells-Urine 0-5 SEEN /hpf (0-5); White Blood Cells 0-5 SEEN /hpf (0-5)
[2024-07-11 19:44] LABS: ALB/GLOB Ratio 1.7 RATIO (0.9-2.4); AST(SGOT) 29 U/L (<=37); Alanine Aminotransfer ALT/SGPT 20 U/L (<=46); Albumin, Serum 4.5 g/dL (3.4-4.8); Alkaline Phosphatase 69 U/L (40-129); Anion Gap 17 (5-15); BUN 25 mg/dL (4-19); BUN/Creat Ratio 20.4 RATIO (10-20); Calcium,Total 9.4 mg/dL (7.6-11.0); Carbon Dioxide 20.2 mmol/L (21.0-32.0); Chloride 103 mmol/L (98-108); Creatinine, Serum 1.23 mg/dL (0.70-1.20); EST Glomerular Filtration Rate 58 (>60); Globulin 2.6 g/dL (2.2-4.2); Glucose 113 mg/dL (70-99); Potassium 4.1 mmol/L (3.3-5.1); Protein, Total 7.1 g/dL (5.9-8.4); Sodium Level 140 mmol/L (133-145); Total Bilirubin 1.53 mg/dL (0.00-1.30)
[2024-07-11 19:45] LABS: Lipase 36 U/L (13-75)
--- NOTE | 2024-07-11 19:54 | CT_ITS ---
PROCEDURE: CTA ABD/PELVIS W/WO CONTRAST REASON FOR EXAM: ABD PAIN TECHNIQUE: CTA imaging of the abdomen and pelvis with intravenous contrast. 3D reconstructions. IV CONTRAST: COMPARISON: None. FINDINGS: Aorta: Abdominal aorta is normal in size. No significant atherosclerotic plaque. No evidence of aneurysm or dissection. Iliac Arteries: Iliac arteries are normal in size with no significant plaque or stenosis. Celiac: Mild mixed calcified and soft plaque identified. No hemodynamically significant stenosis. SMA: Mild atherosclerotic calcification without hemodynamically significant stenosis BURAK : Normal. Right Renal: Normal. Left Renal: Normal. Lung bases: Bibasilar atelectasis. Liver: Normal size. No mass. Gallbladder: Gallbladder is unremarkable. Spleen: Normal size. Pancreas: Normal size without evidence of mass surrounding inflammation or ductal dilation. Adrenals: Normal. Kidneys: Bilateral renal atrophy. Several bilateral simple cysts are noted. Few hyperdense cysts are also noted. In the right inferior pole, there is a 2.2 cm heterogeneously enhancing exophytic lesion (series 2, image 102, series 601, image 60), highly concerning for neoplastic lesion, such as RCC. No calculi or hydronephrosis. Bladder: Urinary bladder is unremarkable. Reproductive Organs: No pelvic mass. Bowel: Stomach is unremarkable. No bowel dilation or wall thickening. Colonic diverticulosis without diverticulitis with moderate colonic stool. Appendix: Normal appendix. Lymph nodes: Unremarkable. Peritoneum / Retroperitoneum: No ascites. No pneumoperitoneum. Bones: Degenerative changes of the spine. Status post bilateral hip arthroplasties. . CT/CTA Abd/Pelvis W/WO Contrast IMPRESSION: 1. Atherosclerotic calcification of the abdominal aorta and iliac arteries with out dissection, acute occlusion or aneurysm. 2. No acute findings in the abdomen and pelvis. 3. 2.2 cm heterogeneously enhancing exophytic right renal lesion, concerning fo r RCC. Recommend further evaluation with MRI of the kidneys. 4. Colonic diverticulosis without diverticulitis. 5. No acute findings in the abdomen and pelvis otherwise. One or more dose reduction techniques were used (e.g., Automated exposure contr ol, adjustment of the mA and/or kV according to patient size, use of iterative reconstruction technique). Reading [facility]
--- NOTE | 2024-07-11 20:12 | ED.VIS.GI ---
HPI HPI - GI History of Present Illness Chief Complaint: Abd Pain Informant: patient and spouse/S.O. Narrative Narrative: Patient ports on and off abdominal pain for a while. Would clarify it has been going on for months. He states typically will get better with Welsh, however today did not improve. He had transient nausea no vomiting. He had normal bowel movement today nonbloody. Denies any abdominal surgeries. Denies fever chills or sweats. History of pacemaker for sick sinus syndrome. Patient on warfarin for paroxysmal A-fib. He states urine frequency due to having diuretics started by his cardiology team. Prior similar symptoms: Yes PFSH PFSH Medical History History of DVT (deep vein thrombosis) Post covid-19 condition, unspecified COVID-19 History of steroid therapy Hypertension Wears glasses Anxiety Arthritis High cholesterol Easy bruising Back pain Migraine headache Gastric reflux Non-smoker BiPAP (biphasic positive airway pressure) dependence Sleep apnea Shortness of breath on exertion Chronic cough History of edema History of echocardiogram History of stress test History of pacemaker Cardiology follow-up encounter Nonobstructive atherosclerosis of coronary artery Recurrent pulmonary emboli Abnormal cardiovascular stress test Multiple premature ventricular complexes Chronic diastolic (congestive) heart failure Bilateral inguinal hernia Bilateral inguinal hernia, without obstruction or gangrene, recurrent Right bundle branch block (RBBB) NSVT (nonsustained ventricular tachycardia) (02/2017) Essential (primary) hypertension Hypercoagulable state Hx of rheumatic fever Breakdown (mechanical) of cardiac electrode, subsequent encounter Sick sinus syndrome Hyperlipidemia PEYMAN (obstructive sleep apnea) Diverticulitis Nonrheumatic tricuspid (valve) insufficiency Nonrheumatic mitral (valve) insufficiency Nonrheumatic aortic (valve) insufficiency DVT (deep venous thrombosis) Complete heart block Home Medications ?Medication ?Instructions ?Recorded ?Last Taken ?Type uqjvqjw-[id number] 250 1 ea PO PRN PRN Pain Or Fever 10/12/19 Unknown History mg-250 mg-65 mg tablet sertraline 50 mg tablet 25 mg (1/2 x 50 mg) PO DAILY #90 12/30/22 Unknown Rx tabs tamsulosin 0.4 mg capsule 0.4 mg PO DAILY prostate #90 caps 02/02/23 Unknown Rx zolpidem 10 mg tablet (Ambien) 10 mg PO HS PRN Sleep #30 tabs 07/23/23 Unknown Rx hydrocodone-acetaminophen 5-325mg 1 tab PO QDAY PRN 11/27/23 Unknown History 5mg-325mg potassium chloride 20 mEq 20 meq PO DAILY #90 tabs 02/19/24 Unknown Rx tablet,extended release atorvastatin 20 mg tablet 20 mg PO QHS #90 tabs 04/04/24 Unknown Rx omeprazole 40 mg capsule,delayed 40 mg PO DAILY gerd #90 caps 05/17/24 Unknown Rx release prednisone 2.5 mg tablet 2.5 mg PO DAILY JOINT PAIN #90 tabs 06/06/24 Unknown Rx finasteride 5 mg tablet 5 mg PO QHS #90 tabs 06/13/24 Unknown Rx aluminum hydrox-magnesium carb 160 2 tab PO BID PRN 06/28/24 Unknown History mg-105 mg chewable tablet (Gaviscon Extra Strength) dapagliflozin propanediol 10 mg 10 mg PO DAILY #30 tabs 06/28/24 Unknown Rx tablet (Farxiga) losartan 100 mg tablet 100 mg PO DAILY #90 tabs 06/28/24 Unknown Rx warfarin 7.5 mg tablet 7.5 mg PO .COMPLEX 06/28/24 Unknown History furosemide 40 mg tablet (Lasix) 40 mg PO QDAY SOB #90 tabs 06/30/24 Unknown Rx metoprolol succinate 50 mg 50 mg PO DAILY #90 tabs 07/11/24 Unknown Rx tablet,extended release 24 hr Allergy/AdvReac Type Severity Reaction Status Date / Time amlodipine (From [facility]) Allergy Unknown Verified 07/11/24 15:48 trazodone Allergy Unknown Verified 07/11/24 15:48 amiodarone AdvReac Severe Verified 07/11/24 15:48 Fatigue Family History Father Alcoholism Cancer Grandmother Enlarged heart Brother Colon cancer, Onset Age: 50 Uncle Colon cancer Other Lower extremity edema Surgical History History of left heart catheterization (12/02/21) History of permanent cardiac pacemaker placement (01/2017) History of bilateral inguinal hernia repair (10/20/19) History of left inguinal hernia repair History of detached retina repair History of hydrocelectomy History of prostate biopsy History of bilateral hip replacements H/O shoulder replacement cystourethroscopy (2003) History of colonoscopy Hx of total knee replacement (05/15/12) Social History household members: spouse current occupational status: retired 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, 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 Smoking Status: Never smoker Electronic Cigarette Use: not used alcohol intake: never substance use type: does not use caffeine: Yes Type: coffee Number of servings: 1 what type of physical activity do you participate in: none seatbelt use: always do you feel safe at home: Yes ROS ROS ED Constitutional Constitutional ED: Denies chills, fever(s) or sweats ENT ENT ED: Denies sore throat Cardiovascular Cardiovascular: Denies chest pain, leg edema, palpitations or racing heartbeat Respiratory/Chest Respiratory/Chest: Denies cough, dyspnea or dyspnea on exertion Gastrointestinal Gastrointestinal: Reports abdominal pain; Denies diarrhea, nausea or vomiting Genitourinary Genitourinary ED: Denies dysuria, hematuria or urinary frequency Musculoskeletal Musculoskeletal: Denies back pain, extremity pain or neck pain Integumentary Denies rash or wounds Neurologic Neurologic: Denies headache(s), paresthesias or weakness EXAM Physical Exam Const Vital Signs: 07/11/24 15:45 07/11/24 17:45 07/11/24 18:51 Temperature 98.3 F Temperature Source Temporal Pulse Rate 68 75 77 Respiratory Rate 15 18 18 Blood Pressure 154/77 H 168/72 H 145/78 H Blood Pressure Mean 102 104 100 Pulse Ox 95 95 98 Oxygen Delivery Method Room Air Room Air Room Air 07/11/24 20:28 07/11/24 21:56 Temperature Temperature Source Pulse Rate 73 71 Respiratory Rate 18 18 Blood Pressure 149/99 H 156/88 H Blood Pressure Mean 115 110 Pulse Ox 95 99 Oxygen Delivery Method Room Air Room Air Positive well nourished and well developed General Appearance ED: well developed and NAD HEENT Reports moist mucous membranes normocephalic and atraumatic Eyes General Eye ED: Yes normal appearance of both eyes Neck full ROM Chest Wall Chest: Negative for tenderness Resp normal respiratory effort and normal air movement Effort and Inspection: symmetric chest movement; Negative for respiratory distress Cardio regular rate, regular rhythm and no murmurs Peripheral Pulses: pulses 2+ throughout GI normal to inspection, nondistended, normoactive bowel sounds GI Narrative: Tenderness along the mid abdomen could not palpate pulsatile mass. Palpation: Negative for guarding or rebound tenderness present Extremity normal to inspection General Extremety ED: Negative for edema or tenderness General Extremity: Negative for edema Neuro oriented x3 and no sensory deficits noted Sensorium / Orientation: awake and alert Skin no rashes or lesions noted and no wounds MDM MDM MDM Narrative Medical decision making narrative: Interventions / MDM: Differential diagnosis: Nonspecific abdominal pain, renal mass Diagnosis considered but do not suspect: Aortic pathology however CT negative. My EKG interpretation: N/A Imaging independently reviewed and interpreted by myself: CTA abdomen pelvis: 2.2 cm exophytic right inferior pole lesion concerning for renal cell carcinoma. Normal appendix normal aorta. External documents reviewed: N/A Test considered but not ordered:N/A ED course: Patient nontoxic nonsurgical abdomen. Nursing protocol initiated labs. White count normal 9.8 hemoglobin 15.6. Creatinine 1.23 with GFR 58. Lipase normal liver enzymes normal urine negative. No stable pain at this time. However pain along mid abdomen he reports no evaluation of his already ordered in the past. With his age [address] angiogram to rule out any aortic pathology. 2151: CT scan concerning for renal cell carcinoma right inferior pole kidneys 2.2 cm. Urine without blood. Normal appendix, no other acute process noted. He does follow urologist Dr. Yap. Page out to update his urologist for close follow-up. He is therapeutic on his INR of 2.4. Abdomen benign on reevaluation. Unable to get a hold of his urologist however he has follow-up tomorrow with his PCP. Follow-up information given. All questions were answered. Re-evaluation: stable Disposition discussed with patient/family/significant other: Patient and spouse Case discussed with consulting clinician: Urology This note was generated with [employer] dictation software. It may contain incorrect words, spelling, and punctuation that were not noted in checking the note before signing. Lab Data Attestation: I reviewed the patient's lab results. Labs: Laboratory Results - last 24 hr 07/11/24 07/11/24 07/11/24 18:02 18:50 20:26 WBC 9.8 RBC 4.90 Hgb 15.6 Hct 45.2 MCV 92.2 MCH 31.8 MCHC 34.5 RDW Std Deviation 53.1 H RDW Coeff of Terence 15.8 H Plt Count 193 MPV 8.4 Immature Gran % (Auto) 0.300 Neut % (Auto) 84.2 H Lymph % (Auto) 9.0 L [place] % (Auto) 6.0 Eos % (Auto) 0.1 Baso % (Auto) 0.4 Absolute Neuts (auto) 8.3 H Absolute Lymphs (auto) 0.88 Nucleated RBC % 0 PT 26.6 H INR 2.4 APTT 36.0 Sodium 140 Potassium 4.1 Chloride 103 Carbon Dioxide 20.2 L Anion Gap 17 H BUN 25 H Creatinine 1.23 H Estim Creat Clear Calc 58.30 Est GFR (MDRD) Non-Af 58 L BUN/Creatinine Ratio 20.4 H Glucose 113 H Calcium 9.4 Total Bilirubin 1.53 H AST 29 ALT 20 Alkaline Phosphatase 69 Total Protein 7.1 Albumin 4.5 Globulin 2.6 Albumin/Globulin Ratio 1.7 Lipase 36 Urine Color Yellow Urine Clarity Clear Urine pH 6.0 Ur Specific [place] 1.005 Urine Protein 15 H Urine Glucose (UA) 250 H Urine Ketones Negative Urine Occult Blood Negative Urine Nitrite Negative Urine Bilirubin Negative Urine Urobilinogen Normal Ur Leukocyte Esterase Negative Urine RBC 0-5 SEEN Urine WBC 0-5 SEEN Ur Squamous Epith Cells 0 SEEN Urine Bacteria 0 SEEN Urine Mucus 0 SEEN Radiography Diagnostic Testing: Clinical Impression(s) from Imaging Studies Abdomen/Pelvis CTA 07/11/24 19:54 IMPRESSION: 1. Atherosclerotic calcification of the abdominal aorta and iliac arteries without dissection, acute occlusion or aneurysm. 2. No acute findings in the abdomen and pelvis. 3. 2.2 cm heterogeneously enhancing exophytic right renal lesion, concerning for RCC. Recommend further evaluation with MRI of the kidneys. 4. Colonic diverticulosis without diverticulitis. 5. No acute findings in the abdomen and pelvis otherwise. One or more dose reduction techniques were used (e.g., Automated exposure control, adjustment of the mA and/or kV according to patient size, use of iterative reconstruction technique). [facility] Triage Chief Complaint: Abd Pain ED Provider: Babatunde Marie Dx/Rx/DC Orders Clinical Impression: Abdominal pain, Renal mass, right Instructions: Abdominal Pain Prescriptions: No Action hydrocodone-acetaminophen 5-325 mg tablet 1 tab PO QDAY PRN warfarin 7.5 mg tablet 7.5 mg PO .COMPLEX Protocol: Dose Management Condition: Thursday Dose/Route: 7.5 mg Instruction: 1 x 7.5 mg tablet Condition: Thursday Dose/Route: 7.5 mg Instruction: 1 x 7.5 mg tablet Condition: Thursday Dose/Route: 7.5 mg Instruction: 1 x 7.5 mg tablet Condition: Thursday Dose/Route: 7.5 mg Instruction: 1 x 7.5 mg tablet Condition: Dose/Route: 3.75 mg Instruction: 0.5 x 7.5 mg tablets Condition: Thursday Dose/Route: 7.5 mg Instruction: 1 x 7.5 mg tablet Condition: Thursday Dose/Route: 7.5 mg Instruction: 1 x 7.5 mg tablet Protocol Text: Adjustment Start Date: Thursday06/10/24 INR Value: 2.6 INR Date: 06/09/24 Recheck Date: 07/10/24 Rx Instructions: 7.5 mg orally daily except takes 3.75; Gaviscon Extra Strength 160-105 mg tablet,chewable 2 tab PO BID PRN losartan 100 mg tablet 100 mg PO DAILY Qty: 90 3RF dapagliflozin propanediol [Farxiga] 10 mg tablet 10 mg PO DAILY Qty: 30 11RF [id number]-nzjrxjsjzxcmc-uykunkls 1 EACH tablet 1 ea PO PRN PRN (Reason: Pain Or Fever) Patient Comments: ask about stopping sertraline 50 mg tablet 25 mg PO DAILY Qty: 90 0RF tamsulosin 0.4 mg capsule 0.4 mg PO DAILY Qty: 90 0RF zolpidem [Ambien] 10 mg tablet 10 mg PO HS PRN (Reason: Sleep) Qty: 30 0RF potassium chloride 20 mEq tablet extended release 20 meq PO DAILY Qty: 90 3RF atorvastatin 20 mg tablet 20 mg PO QHS Qty: 90 0RF omeprazole 40 mg capsule,delayed release(DR/EC) 40 mg PO DAILY Qty: 90 1RF prednisone 2.5 mg tablet 2.5 mg PO DAILY Qty: 90 0RF finasteride 5 mg tablet 5 mg PO QHS Qty: 90 1RF furosemide [Lasix] 40 mg tablet 40 mg PO QDAY Qty: 90 3RF metoprolol succinate 50 mg tablet extended release 24 hr 50 mg PO DAILY Qty: 90 3RF Primary Care Provider: Seda Merida Referrals: Seda Merida MD [Primary Care Provider] - Keep Jaspreet appointment Oral Yap MD [Med Staff - Active Staff] - 3-5 Days Activity Restrictions/Additional Instructions: With your abdominal pain CT scan abdomen normal aorta however noted to 2.2 cm right inferior pole mass of your kidney concerning for renal cell carcinoma. Urine without blood. Keep your follow-up with your doctor tomorrow. Follow-up with Dr. Yap for further evaluation and options for treatment. Your INR is 2.4 today. Print Language: Taiwanese Disposition Disposition: Home, Self Care Discharge Date/Time: 07/11/24 22:07
[2024-07-11] MEDS: 0.9% Normal Saline (500mL Bag) 500 ML 999 ML IV (20:27)
[2024-07-11 20:28] VITALS: BP 149/99; PULSE 73; RESP 18; O2SAT 95
[2024-07-11 20:55] LABS: International Normalized Ratio 2.4; Prothrombin Time (Protime)PT. 26.6 SECONDS (11.7-14.9)
[2024-07-11 21:56] VITALS: BP 156/88; PULSE 71; RESP 18; O2SAT 99
== END 2024-07-11 22:07 | disposition home or self-care (01) ==
PROVIDERS: Emergency Provider Emergency Medicine; PCP Internal Medicine; Visit Provider Emergency Medicine
DX: R10.9 Unspecified abdominal pain (principal); I11.0 Hypertensive heart disease with heart failure; I50.32 Chronic diastolic (congestive) heart failure; I48.0 Paroxysmal atrial fibrillation; N28.89 Other specified disorders of kidney and ureter; Z79.01 Long term (current) use of anticoagulants; I25.10 Atherosclerotic heart disease of native coronary artery without angina pectoris; E78.00 Pure hypercholesterolemia, unspecified; R11.0 Nausea; Z86.718 Personal history of other venous thrombosis and embolism; Z86.16 Personal history of COVID-19; G47.33 Obstructive sleep apnea (adult) (pediatric); Z95.0 Presence of cardiac pacemaker
CPT/HCPCS: 74174; 80053; 81001; 83690; 85025; 85610; 85730; 96360; 99282; Q9967; A4216

== ENCOUNTER → 2024-07-20 | Outpatient (CLI) | payer MEDICARE, SELFPAY ==
--- NOTE | 2024-07-20 06:48 | ECHOD_ITS ---
Reason For Study Reason For Study: DYSPNEA Procedure This was a 2D Doppler, Color Flow transthoracic echocardiogram. The study was technically limited. Exam performed in department. Left Ventricle Normal LV size. Moderate concentric left ventricular hypertrophy. The left ventricular ejection fraction is 60 %. Stage 1 diastolic dysfunction. No regional wall motion abnormalities noted. Right Ventricle Normal RV size. ICD or pacer leads identified within the right ventricle. Normal systolic function. Atria Normal left atrium. Normal right atrium. Mitral Valve Normal mitral valve. Tricuspid Valve Normal tricuspid valve. Mild (1+) tricuspid valve insufficiency. Pulmonary artery systolic pressure is 28 mmHg. Aortic Valve Trisinus/trileaflet aortic valve. Mild focal aortic valve calcification. Mild (1+) aortic valve insufficiency. Pulmonic Valve Normal pulmonic valve. Great Vessels Normal aortic root. The pulmonary artery is normal size. Normal inferior vena cava. Pericardium/Pleural No pericardial effusion. MMode/2D Measurements & Calculations LVIDd: 4.7 cm IVSd: 1.5 cm LVOT diam: 2.6 cm LVIDs: 3.4 cm LVPWd: 1.3 cm LVOT area: 5.3 cm2 FS: 28.4 % LAV(MOD-bp): 62.4 ml LVAd ap4: 33.2 cm2 LVAd ap2: 26.6 cm2 LAV(MOD-bp) Indexed: 27.4 ml/m2 LVLd ap4: 8.8 cm LVLd ap2: 9.0 cm LAV(MOD-sp2): 64.6 ml EDV(MOD-sp4): 104.4 ml EDV(MOD-sp2): 67.7 ml LAV(MOD-sp4): 57.0 ml EDV(sp4-el): 105.9 ml EDV(sp2-el): 66.8 ml LVAs ap4: 21.4 cm2 LVAs ap2: 17.3 cm2 LVLs ap4: 8.5 cm LVLs ap2: 7.7 cm ESV(MOD-sp4): 49.1 ml ESV(MOD-sp2): 31.5 ml ESV(sp4-el): 45.9 ml ESV(sp2-el): 33.0 ml EF(MOD-sp4): 53.0 % EF(MOD-sp2): 53.5 % EF(sp4-el): 56.7 % SV(MOD-sp4): 55.3 ml SV(MOD-sp2): 36.2 ml SV(sp4-el): 60.0 ml SI(MOD-sp4): 24.3 ml/m2 SI(MOD-sp2): 15.9 ml/m2 LA A4 area: 21.3 cm2 LA dimension(2D): 4.4 cm Doppler Measurements & Calculations MV E max devyn: 42.5 cm/sec Lat Peak E' Devyn: 9.5 cm/sec Med Peak E' Devyn: 8.5 cm/sec MV A max devyn: 76.2 cm/sec E/E' lat: 4.5 E/E' med: 5.0 MV E/A: 0.56 Ao V2 max: 143.0 cm/sec AI max devyn: 354.8 cm/sec LV V1 max: 107.6 cm/sec Ao max P.2 mmHg AI max P.4 mmHg LV V1 max P.6 mmHg Ao V2 mean: 107.5 cm/sec LV V1 mean P.6 mmHg Ao mean P.9 mmHg AI dec slope: 142.7 cm/sec2 LV V1 mean: 77.0 cm/sec Ao V2 VTI: 27.3 cm AI P1/2t: 728.5 msec LV V1 VTI: 19.9 cm AV (velocity ratio): 0.73 [place](I,D): 3.9 cm2 [place](V,D): 4.0 cm2 SV(LVOT): 105.2 ml PA V2 max: 68.5 cm/sec TR max devyn: 241.7 cm/sec TR max P.4 mmHg ECHO/Echo Complete Interpretation Summary The left ventricular ejection fraction is 60 %. No regional wall motion abnormalities noted. Normal LV size. Moderate concentric left ventricular hypertrophy. Stage 1 diastolic dysfunction. Mild (1+) aortic valve insufficiency. Ordering Physician: Jaden Torres Referring Physician: Seda Merida Performed By: Francisco, Kaykay, RDCS, RVT
== END | disposition home or self-care (01) ==
LOC: CVS 06:48
PROVIDERS: PCP Internal Medicine; Referring Provider Nurse Practitioner Family; Visit Provider Nurse Practitioner Family
DX: R06.09 Other forms of dyspnea (principal)
CPT/HCPCS: 93306

== ENCOUNTER 2024-08-11 10:09 | Outpatient (RCR) | payer MEDICARE, SELFPAY ==
[2024-06-25 02:58] VITALS: BMI 30.4
[2024-08-11 10:18] LABS: INR Fingerstick 2.6
== END 2024-08-24 18:00 | disposition home or self-care (01) ==
LOC: LAB 10:09
PROVIDERS: Family Provider Internal Medicine; PCP Internal Medicine; Referring Provider Internal Medicine Cardiovascular Disease; Visit Provider Internal Medicine Cardiovascular Disease
DX: Z79.01 Long term (current) use of anticoagulants
CPT/HCPCS: 36416; 85610

== ENCOUNTER 2024-09-01 10:35 | Outpatient (RCR) | payer MEDICARE, SELFPAY ==
[2024-08-24 20:25] VITALS: BMI 30.4
[2024-09-01 11:00] LABS: International Normalized Ratio 2.2; Prothrombin Time (Protime)PT. 24.7 SECONDS (11.7-14.9)
== END 2024-09-01 18:00 | disposition home or self-care (01) ==
LOC: LAB 10:35
PROVIDERS: Family Provider Internal Medicine; PCP Internal Medicine; Referring Provider Internal Medicine Cardiovascular Disease; Visit Provider Internal Medicine Cardiovascular Disease
DX: Z79.01 Long term (current) use of anticoagulants
CPT/HCPCS: 36415; 85610

== ENCOUNTER → 2024-09-07 | Outpatient (CLI) | payer MEDICARE, SELFPAY ==
[2024-09-07 12:30] LABS: Amphetamine Urine NEGATIVE (<1000 ng/mL); Barbiturate Urine NEGATIVE (< 200 ng/mL); Benzodiazepine Urine NEGATIVE (< 200 ng/mL); Buprenorphine Urine NEGATIVE (< 200 ng/mL); Cocaine Urine NEGATIVE (< 300 ng/mL); Fentanyl, Urine NEGATIVE; Methadone Urine NEGATIVE (< 300 ng/mL); Opiates Urine NEGATIVE (< 300 ng/mL); Oxycodone, Urine NEGATIVE (< 100 ng/mL); PCP Urine NEGATIVE (< 25 ng/mL); THC Urine NEGATIVE (< 50 ng/mL)
== END | disposition home or self-care (01) ==
LOC: LAB 10:29
PROVIDERS: PCP Internal Medicine; Referring Provider Anesthesiology Pain Medicine; Visit Provider Anesthesiology Pain Medicine
DX: F11.20 Opioid dependence, uncomplicated (principal)
CPT/HCPCS: 80307

== ENCOUNTER 2024-09-29 09:23 | Outpatient (RCR) | payer MEDICARE, SELFPAY ==
[2024-09-24 20:27] VITALS: BMI 30.4
[2024-09-29 09:30] LABS: INR Fingerstick 2.6; Prothrombin Time Fingerstick 27.2 SEC (11.7-14.9)
== END 2024-09-29 18:00 | disposition home or self-care (01) ==
LOC: LAB 09:23
PROVIDERS: Family Provider Internal Medicine; PCP Internal Medicine; Referring Provider Internal Medicine Cardiovascular Disease; Visit Provider Internal Medicine Cardiovascular Disease
DX: Z79.01 Long term (current) use of anticoagulants
CPT/HCPCS: 36416; 85610

== ENCOUNTER 2024-10-26 10:57 | Outpatient (RCR) | payer MEDICARE, SELFPAY ==
[2024-10-26 11:08] LABS: INR Fingerstick 2.3
== END 2024-11-24 20:45 | disposition home or self-care (01) ==
LOC: LAB 10:57
PROVIDERS: Family Provider Internal Medicine; PCP Internal Medicine; Referring Provider Internal Medicine Cardiovascular Disease; Visit Provider Internal Medicine Cardiovascular Disease
DX: Z79.01 Long term (current) use of anticoagulants
CPT/HCPCS: 36416; 85610

== ENCOUNTER 2024-11-28 09:23 | Outpatient (RCR) | payer MEDICARE, SELFPAY ==
[2024-11-28 09:31] LABS: INR Fingerstick 2.1
== END 2024-11-28 18:00 | disposition home or self-care (01) ==
LOC: LAB 09:23
PROVIDERS: Family Provider Internal Medicine; PCP Internal Medicine; Referring Provider Internal Medicine Cardiovascular Disease; Visit Provider Internal Medicine Cardiovascular Disease
DX: Z79.01 Long term (current) use of anticoagulants
CPT/HCPCS: 36416; 85610

== ENCOUNTER 2025-01-18 10:12 | Outpatient (RCR) | payer MEDICARE, SELFPAY ==
[2024-12-29 10:13] LABS: INR Fingerstick 3.2
[2025-01-05 11:01] LABS: Prothrombin Time (Protime)PT. 32.5 SECONDS (11.7-14.9)
[2025-01-18 11:02] LABS: Prothrombin Time (Protime)PT. 27.5 SECONDS (11.7-14.9)
== END 2025-01-24 18:00 | disposition home or self-care (01) ==
LOC: LAB 10:12
PROVIDERS: Family Provider Internal Medicine; PCP Internal Medicine; Referring Provider Internal Medicine Cardiovascular Disease; Visit Provider Internal Medicine Cardiovascular Disease
DX: Z79.01 Long term (current) use of anticoagulants
CPT/HCPCS: 36415; 36416; 85610

== ENCOUNTER → 2025-01-18 | Outpatient (CLI) | payer MEDICARE, SELFPAY ==
--- NOTE | 2025-01-18 09:27 | CDU_ITS ---
Reason For Study Reason For Study: Retinal Ischemia Rt. Velocities/BP Lt. Velocities/BP Prox CCA 61.0/13.0 cm/sec. Prox CCA 71.2/18.8 cm/sec. Mid CCA 50.5/10.4 cm/sec. Mid CCA 51.1/11.0 cm/sec. Dist CCA 33.2/10.5 cm/sec. Dist CCA 55.5/15.4 cm/sec. Prox ICA 58.4/15.6 cm/sec. Prox ICA 59.0/11.0 cm/sec. Mid ICA 60.1/15.6 cm/sec. Mid ICA 42.2/11.5 cm/sec. Dist ICA 32.2/12.1 cm/sec. Dist ICA 78.7/18.2 cm/sec. Rt. ICA/CCA = 1.2. Lt. ICA/CCA = 1.5. Prox ECA 40.9/4.3 cm/sec. Prox ECA 43.5/6.0 cm/sec. Rt. Vert. 50.5/13.9 cm/sec. Lt. Vert. 39.1/10.6 cm/sec. Right Extracranial There is heterogeneous, irregular atherosclerotic plaque noted in the right common carotid artery. There is intimal thickening but no significant atherosclerotic plaque noted in the right internal carotid artery. The right internal carotid artery is very tortuous. There is intimal thickening but no significant atherosclerotic plaque noted in the right external carotid artery. Antegrade flow is noted in the right vertebral artery. There is heterogeneous, irregular atherosclerotic plaque noted in the left bulb. Left Extracranial There is heterogeneous, irregular atherosclerotic plaque noted in the left common carotid artery. There is intimal thickening but no significant atherosclerotic plaque noted in the left internal carotid artery. The left internal carotid artery is very tortuous. There is intimal thickening but no significant atherosclerotic plaque noted in the left external carotid artery. Antegrade flow is noted in the left vertebral artery. There is heterogeneous, irregular atherosclerotic plaque noted in the left bulb. Procedure Carotid Duplex 12885. This is a Carotid Duplex examination using B-mode, color flow and specral Doppler. The exam was diagnostic. Exam performed in department. VL/Carotid Duplex Ultrasound Interpretation Summary No significant atherosclerotic plaque or stenosis noted in the internal carotid arteries bilaterally. Flow within the vertebral arteries is antegrade bilaterally. Heterogeneous, irregular atheroscl erotic plaque is noted in the carotid bulbs bilaterally, which does not appear to be hemodynamically significant. Ordering Physician: Phil Mercer Referring Physician: Seda Merida Performed By: Paresh Valero RVT
== END | disposition home or self-care (01) ==
LOC: CVS 09:26
PROVIDERS: PCP Internal Medicine; Referring Provider Ophthalmology; Visit Provider Ophthalmology
DX: H35.82 Retinal ischemia (principal)
CPT/HCPCS: 93880

== ENCOUNTER 2025-02-16 09:14 | Outpatient (RCR) | payer MEDICARE, SELFPAY ==
[2025-02-16 09:22] LABS: INR Fingerstick 2.3
== END 2025-02-16 18:00 | disposition home or self-care (01) ==
LOC: LAB 09:14
PROVIDERS: Family Provider Internal Medicine; PCP Internal Medicine; Referring Provider Internal Medicine Cardiovascular Disease; Visit Provider Internal Medicine Cardiovascular Disease
DX: I48.0 Paroxysmal atrial fibrillation (principal); Z79.01 Long term (current) use of anticoagulants; Z86.718 Personal history of other venous thrombosis and embolism
CPT/HCPCS: 36416; 85610

== ENCOUNTER 2025-03-20 13:07 | Outpatient (RCR) | payer MEDICARE, SELFPAY ==
[2025-03-20 13:20] LABS: INR Fingerstick 1.9
== END 2025-03-25 18:00 | disposition home or self-care (01) ==
LOC: LAB 13:07
PROVIDERS: Family Provider Internal Medicine; PCP Internal Medicine; Referring Provider Internal Medicine Cardiovascular Disease; Visit Provider Internal Medicine Cardiovascular Disease
DX: Z86.718 Personal history of other venous thrombosis and embolism (principal); I48.0 Paroxysmal atrial fibrillation; Z79.01 Long term (current) use of anticoagulants
CPT/HCPCS: 36416; 85610

== ENCOUNTER 2025-03-31 11:43 | Outpatient (RCR) | payer MEDICARE, SELFPAY ==
[2025-03-31 12:08] LABS: INR Fingerstick 2.0
== END 2025-03-31 18:00 | disposition home or self-care (01) ==
LOC: LAB 11:43
PROVIDERS: Family Provider Internal Medicine; PCP Internal Medicine; Referring Provider Internal Medicine Cardiovascular Disease; Visit Provider Internal Medicine Cardiovascular Disease
DX: Z86.718 Personal history of other venous thrombosis and embolism (principal); I48.0 Paroxysmal atrial fibrillation; Z79.01 Long term (current) use of anticoagulants
CPT/HCPCS: 36415; 36416; 85610

== ENCOUNTER → 2025-04-14 | Outpatient (CLI) | payer MEDICARE, SELFPAY ==
--- NOTE | 2025-04-14 10:41 | VDLE_ITS ---
Reason For Study Reason For Study: VENOUS INSUFFICIENCY RIGHT LEFT CFV is compressible, spontaneous, phasic, competent CFV is compressible, spontaneous, phasic, competent, and demonstrates normal augmentation. and demonstrates normal augmentation. FV is compressible, spontaneous, phasic, competent FV is compressible, spontaneous, phasic, competent and demonstrates normal augmentation. and demonstrates normal augmentation. POP V is compressible, spontaneous, phasic, competent POP V is compressible, spontaneous, phasic, competent and demonstrates normal augmentation. and demonstrates normal augmentation. T/P Trunk is compressible. T/P Trunk is compressible. PTV is compressible. PTV is compressible. RT PerV is compressible. LT PerV is compressible. SFJ is competent and measures 0.81 x 0.73 cm. SFJ is INCOMPETENT and measures 0.84 x 0.78 cm. GSV proximal thigh measures 0.35 x 0.31 cm. GSV proximal thigh measures 0.47 x 0.39 cm. GSV at knee measures 0.46 x 0.43 cm. GSV at knee measures 0.46 x 0.43 cm. GSV is competent throughout. GSV is competent throughout. SSV mid calf is competent and measures 0.45 x 0.35 SSV mid calf is competent and measures 0.28 x 0.27 cm. cm. Procedure This is a venous duplex using B-mode, color flow and spectral Doppler. Exam performed in department. VL/Venous Duplex US - Emmanuel Extrem Interpretation Summary Deep veins of the lower extremities are bilaterally patent and compressible seg mentally. There is no evidence of deep vein thrombosis on either side. Valvular competence appears intact within the p roximal deep venous systems bilaterally. The great saphenous veins appear bilaterally patent and compressible segmentall y. The right sapheno-femoral junction is competent . The left sapheno-femoral junction is incompetent . Valvular compete nce appears to be intact segmentally within the great saphenous veins bilaterally. Small saphenous veins are patent and competent bilaterally. Ordering Physician: Wilver Jay Referring Physician: Seda Merida Performed By: Kaykay Singh, RENETTA, RVT
== END | disposition home or self-care (01) ==
LOC: CVS 10:39
PROVIDERS: PCP Internal Medicine; Referring Provider Podiatrist; Visit Provider Podiatrist
DX: I87.2 Venous insufficiency (chronic) (peripheral) (principal); R22.41 Localized swelling, mass and lump, right lower limb; R22.42 Localized swelling, mass and lump, left lower limb
CPT/HCPCS: 93970